=== PATIENT | male | born 1940 | race Caucasian/White ===

== ENCOUNTER → 2016-09-27 | Outpatient (CLI) | payer MEDICARE ==
[~2016-09-27] MED LIST: /AMLO25TA PO; /TAMS4CA PO; ALPH0.1S OU; FOLI1TAB86 PO; GLIM4TAB PO; LEVO500T PO; METF1000 PO; SIMV40TA2 PO; TYLE325T5 PO; VITA100T20 PO; VITA100T60 PO; VITMTA PO; ZEST20TA8 PO; vitamin d PO
[2016-09-27 13:14] LABS: ALBUMIN 3.2 GM/DL (3.2-5.2); BILIRUBIN,TOTAL 0.4 MG/DL (0.2-1.0); CALCIUM LEVEL 8.7 MG/DL (8.8-10.2); CREATININE FOR GFR 1.69 MG/DL (0.70-1.30); GLOMERULAR FILTRATION RATE 42.4 (>42); TOTAL PROTEIN 6.4 GM/DL (6.4-8.2)
--- NOTE | 2016-09-27 16:59 | REP ---
CHEST, TWO VIEWS: Two views of the chest are performed and compared to prior study of 04/17/2013. There is mild elevation of the right hemidiaphragm. There are stable mild fibroatelectatic changes in each lung base without evidence of acute infiltrate. The heart is not enlarged. There is mild calcification of the thoracic aorta. The mediastinal silhouette is unchanged. There is osteopenia. A mild chronic compression deformity of an upper thoracic vertebral body is unchanged. Sclerotic density in the proximal right humerus is unchanged since 2012 and is compatible with enchondroma or bone infarct. IMPRESSION: No acute infiltrate. Signed by Duncan Spicer MD 09/28/2016 05:10 P
--- NOTE | 2016-09-29 16:47 | ECGEPIP ---
Stationary ECG Study [facility] Test Date: 2016-09-27 Pat Name: TOY LAFLEUR Department: Room: - Gender: M Companion Caregiver: RF : 1940 Requested By: Toy Boone Order Number: [id number] Reading MD: Santi Lind Measurements Intervals [place] Rate: 101 P: ME: 0 QRS: -19 QRSD: 101 T: 58 QT: 323 QTc: 419 Interpretive Statements SINUS RHTYHM/SINUS TACHYCARDIA WITH PACS LOW PRECORDIAL VOLTAGE WITH SLOW R WAVE PROGRESSION PULMONARY DISEASE VS BODY HABITUS; RULE OUT PRIOR SEPTAL INJURY OTHER THAN HEART RATE NO CHANGE FROM 04/16/13 Electronically Signed On 09-29-2016 16:47:22 EST by Santi Lind
== END ==
LOC: M LAB 11:21
PROVIDERS: ATTEND Ophthalmology
DX: Z01.818 Encounter for other preprocedural examination (principal); H04.523 Eversion of bilateral lacrimal punctum

== ENCOUNTER 2016-09-29 21:03 | Emergency (ER) | payer MEDICARE ==
[~2016-09-29] VITALS: Ht 162.6 cm; Wt 56.7 kg
[2016-09-29] MEDS ORDERED: ACETAMINOPHEN 325 MG TAB As Ordered ONE (21:53)
[2016-09-29] MEDS ORDERED: METOCLOPRAMIDE INJ 10MG/2ML VIAL (J2765) As Ordered ONE (21:53)
[2016-09-29 22:30] LABS: BASO % 0.4 % (0.0-1.0); EOS # 0.1 K/mm3 (0.0-0.50); EOS % 0.6 % (0.0-3.0); LARGE UNSTAINED CELL # 0.2 K/mm3 (0.0-0.4); LARGE UNSTAINED CELL % 1.3 % (0.0-4.0); LYMPH # 1.3 K/mm3 (1.5-4.5); LYMPH % 11.4 % (24.0-44.0); MEAN CORPUSCULAR HEMOGLOBIN 30.6 pg (27.0-33.0); MEAN CORPUSCULAR HGB CONC 32.5 g/dl (32.0-36.5); MEAN CORPUSCULAR VOLUME 94.2 fl (80.0-96.0); MONO # 0.7 K/mm3 (0.0-0.8); MONO % 6.2 % (0.0-5.0); NEUTROPHILS # 9.2 K/mm3 (1.8-7.7); PLATELET COUNT, AUTOMATED 190 k/mm3 (150-450); RED CELL DISTRIBUTION WIDTH 12.5 % (11.5-14.5); WHITE BLOOD COUNT 11.5 K/mm3 (4.0-10.0)
[2016-09-29 22:48] LABS: CALCIUM LEVEL 8.4 MG/DL (8.8-10.2); CREATININE FOR GFR 1.52 MG/DL (0.70-1.30); POTASSIUM SERUM 5.1 MEQ/L (3.5-5.1); THYROXINE (T4) 6.9 UG/DL (4.5-12.0)
--- NOTE | 2016-09-29 23:07 | REP ---
Clinical: Cough. Technique: PA and lateral. Comparison: 09/27/2016, 04/17/2013. Findings: Mediastinum and cardiac silhouette are normal. Lung michael demonstrate chronic changes primarily involving the left base/lingula. No obvious acute consolidation effusion or pneumothorax is appreciated. However, subtle superimposed left basilar atelectasis cannot definitively be excluded. 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 Impression: Chronic stable-appearing changes. Cannot exclude subtle superimposed left basilar atelectasis. Signed by Sreekanth Perez MD 09/29/2016 10:59 P
[2016-09-29] MEDS ORDERED: cefTRIAXone SOD 1 GM VIAL (J0696) As Ordered ONE (23:32)
--- NOTE | 2016-09-30 00:48 | EDDOCDS ---
Physician Documentation [facility] Name: Toy Sharma Age: 76 yrs Sex: Male : 1940 Arrival Date: 09/29/2016 Time: 21:03 Bed 1 Private MD: Matthew Murphy Disposition: 09/29/16 23:55 Discharged to Home/Self Care. Impression: Urinary tract infection, site not specified, Dehydration. - Condition is Stable. - Prescriptions for Cipro 500 mg Oral Tablet - take 1 tablet by ORAL route every 12 hours; 10 tablet. - Medication Reconciliation, Local Pharmacy Hours form. - Follow up: Matthew Murphy PA; When: 1 - 2 days; Reason: Recheck today's complaints. - Problem is new. - Symptoms have improved. Historical: - Allergies: no known allergies; - Home Meds: 1. metformin 500 mg Oral tab 2 tabs 2 times per day (Last dose: 09/29/2016 08:00) 2. simvastatin 40 mg Oral tab 1 tab 1x/week (Last dose: Unknown) 3. Vitamin D2 oral oral once wkly (Last dose: Unknown) 4. tamsulosin 0.4 mg oral cp24 1 cap once daily (Last dose: 09/29/2016 08:00) 5. meloxicam 7.5 mg oral tab 1 tab once daily (Last dose: 09/29/2016 08:00) 6. folic acid 1 mg Oral tab 1 tab once daily (Last dose: 09/29/2016 08:00) 7. lisinopril 2.5 mg Oral tab 1 tab once daily (Last dose: 09/29/2016 08:00) - PMHx: Hypertension; Diabetes - NIDDM: controlled; BPH; - PSHx: possible testicular surgery; - Social history: Smoking status: Patient states was never smoker of tobacco. Patient uses alcohol but reports only rare drinking. Patient/guardian denies using street drugs, No barriers to communication noted, The patient speaks fluent [place], Speaks appropriately for age. - Family history: Not pertinent. - : The pt / caregiver states he / she is not on anticoagulants. Home medication list is obtained from the caregiver. - Exposure Risk Screening:: None identified. Vital Signs: 09/29 21:05 BP 137 / 73; Pulse 124; Resp 18 S; Temp 100.3(O); Pulse Ox 95% on R/A; Weight 56.7 kg / rn1 125 lbs (R); Height 5 ft. 4 in. (162.56 cm) (R); Pain 3/10; 21:22 BP 156 / 73 (auto/); jp6 21:23 Pulse 117 MON; Pulse Ox 95% ; jp6 22:23 Pulse 103 MON; Pulse Ox 97% ; jp6 23:22 BP 146 / 73 (auto/); jp6 23:22 Pulse 98 MON; Pulse Ox 95% ; jp6 23:30 BP 141 / 70 (auto/); jp6 23:30 Pulse 101 MON; Pulse Ox 94% ; jp6 09/30 00:00 BP 151 / 72 (auto/); jp6 00:00 Pulse 101 MON; Pulse Ox 95% ; jp6 00:30 Pulse 97 MON; Pulse Ox 94% ; jp6 00:30 Temp 100(TE); jp6 09/29 21:05 Body Mass Index 21.46 (56.70 kg, 162.56 cm) rn1 MDM: 09/29 21:18 Fingerstick Blood Sugar Ordered. EDMS 21:43 -Blood Culture (Adults Only), peripheral from different site, or from device/port/PICC cs11 etc. if present ordered. 21:44 CBC with Diff Ordered. EDMS 21:44 MED Profile Ordered. EDMS 21:44 Lactic Acid (Spicer tube on ice) Ordered. EDMS 21:44 Thyroid Profile Ordered. EDMS 21:44 Urinalysis Ordered. EDMS 21:44 Creatine Phosphokinase Ordered. EDMS 21:44 -Influenza A&B Rapid Antigen - Nose Ordered. EDMS 21:44 -Blood Culture Ordered. EDMS 21:44 Urine Culture Ordered. EDMS 21:46 IV Saline Lock ordered. cs11 21:46 Acetaminophen Tablet 650 mg PO once ordered. cs11 21:47 Chest, 2 View (pa\E\lat) Ordered. EDMS 21:48 -Blood Culture (Adults Only), peripheral from different site, or from device/port/PICC tmm1 etc. if present complete. 21:49 Metoclopramide 10 mg IV at 40 mg/hr once over 15 mins ordered. cs11 21:49 NS 0.9% 500 ml IV at bolus once ordered. cs11 21:50 BLOOD CULTURES Ordered. EDMS 22:14 Financial registration complete. zo 22:24 PENDING SALE TO [facility] Payment Agreement was scanned into [employer] and attached to record. zo 22:44 Fingerstick Blood Sugar Reviewed. cs11 22:44 CBC with Diff Reviewed. cs11 22:44 -Influenza A&B Rapid Antigen - Nose Reviewed. cs11 23:13 MED Profile Reviewed. cs11 23:13 Lactic Acid (Spicer tube on ice) Reviewed. cs11 23:13 Thyroid Profile Reviewed. cs11 23:13 Creatine Phosphokinase Reviewed. cs11 23:13 NS 0.9% 500 ml IV at bolus once ordered. cs11 23:21 Urinalysis Reviewed. cs11 23:23 cefTRIAXone 1 grams IVPB once over 30 mins; dilute in 50mL of NS or D5W ordered. cs11 23:25 BED REQUEST+ADM ordered. EDMS 23:52 Chest, 2 View (pa\E\lat) Reviewed. cs11 Point of Care Testing: Blood Glucose: 21:12 Blood Glucose: 219 mg/dL; jmb Ranges: Administered Medications: 22:16 Drug: NS 0.9% 500 ml [sodium chloride 0.9 % intravenous solution] Route: IV; Rate: jp6 bolus; Site: left forearm; 22:17 Drug: Acetaminophen 650 mg [acetaminophen 325 mg tablet (2 tabs)] Route: PO; jp6 22:17 Drug: Metoclopramide 10 mg [metoclopramide 5 mg/mL injection solution] Route: IV; Rate: jp6 40 mg/hr; Infused Over: 15 mins; Site: left forearm; 23:15 Drug: NS 0.9% 500 ml [sodium chloride 0.9 % intravenous solution] Route: IV; Rate: jp6 bolus; Site: left antecubital; 23:48 Drug: cefTRIAXone 1 grams [ceftriaxone 1 gram solution for injection] Route: IVPB; jp6 Infused Over: 30 mins; Site: left antecubital; Signatures: Dispatcher [employer] EDMS Bren Lord Craig, DO DO cs11 Paty Walton, RN RN ttb Liz Spain, MID LEVEL CLINICIAN MID LEVEL CLINICIAN tmm1 Leonora Matt,JOSSY RN jp6 The chart was reviewed and I authenticate all verbal orders and agree with the evaluation and treatment provided.Attachments: 22:24 PENDING SALE TO [facility] Payment Agreement zo MTDD
--- NOTE | 2016-09-30 00:48 | EDDOCDS ---
Nurse's Notes [facility] Name: Toy Sharma Age: 76 yrs Sex: Male : 1940 Arrival Date: 09/29/2016 Time: 21:03 Bed 1 Private MD: Matthew Murphy Diagnosis: Urinary tract infection, site not specified;Dehydration Presentation: 09/29 21:08 Presenting complaint: neighbor states pt cannot walk and is not his normal self today. ttb Chest was hurting 2 days ago while shopping but resolved.... COMANCHE but they state his mentation is his norm. Adult Sepsis Screening: The patient does not have new or worsening altered mentation. Patient's respiratory rate is less than 22. Systolic blood pressure is greater than 100. Patient has a qSOFA score of 0- Negative Sepsis Screen. Suicide/Homicide risk assessment- the patient denies having any suicidal and/or homicidal ideations and does not present with any other emotional, behavioral or mental health complaints. Status: Patient is not a special services supervisor or dependent. Transition of care: patient was not received from another setting of care. 21:08 Acuity: RAISA Level 3 ttb 21:08 Method Of Arrival: Walkin/Carried/Asstd ttb Triage Assessment: 21:14 General: Appears in no apparent distress, well nourished, well groomed, Behavior is ttb appropriate for age, cooperative, pleasant. Pain: Denies pain. Neurological: Level of Consciousness is awake, alert, family reports generalized weakness today. EENT: Denies nasal congestion, nasal discharge. Cardiovascular: Chest pain is denied Parent/caregiver reports patient has had chest pain 2 days ago : stated to be resolved now. Respiratory: Airway is patent Respiratory effort is even, unlabored, Denies cough, shortness of breath. GI: Reports vomiting, Denies diarrhea, nausea. Derm: Skin is normal. Injury Description: No known injury. 21:14 Injury Description: pt fell from standing friends said pt stated he fell last week when ttb his blood sugar was low -- unsure if he hit his head.... called for help after falling and able to get himself up with his cane. Historical: - Allergies: no known allergies; - Home Meds: 1. metformin 500 mg Oral tab 2 tabs 2 times per day (Last dose: 09/29/2016 08:00) 2. simvastatin 40 mg Oral tab 1 tab 1x/week (Last dose: Unknown) 3. Vitamin D2 oral oral once wkly (Last dose: Unknown) 4. tamsulosin 0.4 mg oral cp24 1 cap once daily (Last dose: 09/29/2016 08:00) 5. meloxicam 7.5 mg oral tab 1 tab once daily (Last dose: 09/29/2016 08:00) 6. folic acid 1 mg Oral tab 1 tab once daily (Last dose: 09/29/2016 08:00) 7. lisinopril 2.5 mg Oral tab 1 tab once daily (Last dose: 09/29/2016 08:00) - PMHx: Hypertension; Diabetes - NIDDM: controlled; BPH; - PSHx: possible testicular surgery; - Social history: Smoking status: Patient states was never smoker of tobacco. Patient uses alcohol but reports only rare drinking. Patient/guardian denies using street drugs, No barriers to communication noted, The patient speaks fluent Estonian, Speaks appropriately for age. - Family history: Not pertinent. - : The pt / caregiver states he / she is not on anticoagulants. Home medication list is obtained from the caregiver. - Exposure Risk Screening:: None identified. Screenin:23 Screening information is obtained from the patient. Fall risk: At risk due to age, gait jp6 disturbance, immobility. Assistance ADL's: requires no assistance with activities of daily living. Abuse/DV Screen: The patient / caregiver reports he/she is: not in a situation that causes fear, pain or injury. Nutritional screening: poor appetite. home support is adequate. 09/30 00:30 Advance Directives: Currently, there is no health care proxy. There is no active DNR jp6 order. There is no living will. Assessment: 09/29 21:30 General: Appears in no apparent distress, comfortable, slender, Behavior is appropriate jp6 for age, cooperative. Pain: Denies pain. Neurological: No deficits noted. Level of Consciousness is awake, alert, Oriented to person, place, time. EENT: No deficits noted. Cardiovascular: Capillary refill < 3 seconds Heart tones S1 S2 present Rhythm is sinus rhythm No ectopy. Respiratory: No deficits noted. Airway is patent Respiratory effort is even, unlabored, Respiratory pattern is regular, symmetrical, Breath sounds are clear bilaterally. GI: Abdomen is flat, non- distended Bowel sounds present X 4 quads. Reports nausea, vomiting. : No deficits noted. Derm: Skin is pink, warm & dry. Musculoskeletal: Reports weakness in right leg and left leg inability to stand. 22:30 Reassessment: Patient denies pain at this time. Patient states feeling better. Pain: jp6 Denies pain. Cardiovascular: Capillary refill < 3 seconds Rhythm is sinus rhythm No ectopy. Respiratory: Airway is patent Respiratory effort is even, unlabored, Breath sounds are clear bilaterally. 22:30 Reassessment: Patient appears in no apparent distress at this time. Patient states jp6 feeling better. Patient states symptoms have improved. 23:30 Pain: Denies pain. Neurological: Level of Consciousness is awake, alert, Oriented to jp6 person, place, time. EENT: No deficits noted. Cardiovascular: Rhythm is sinus rhythm No ectopy. Respiratory: Airway is patent Respiratory effort is even, unlabored, Respiratory pattern is regular, symmetrical. Derm: Skin is pink, warm & dry. 09/30 00:34 Reassessment: Patient states symptoms have improved. General: Appears in no apparent jp6 distress, comfortable. Vital Signs: 09/29 21:05 BP 137 / 73; Pulse 124; Resp 18 S; Temp 100.3(O); Pulse Ox 95% on R/A; Weight 56.7 kg rn1 (R); Height 5 ft. 4 in. (162.56 cm) (R); Pain 3/10; 21:22 BP 156 / 73 (auto/); jp6 21:23 Pulse 117 MON; Pulse Ox 95% ; jp6 22:23 Pulse 103 MON; Pulse Ox 97% ; jp6 23:22 BP 146 / 73 (auto/); jp6 23:22 Pulse 98 MON; Pulse Ox 95% ; jp6 23:30 BP 141 / 70 (auto/); jp6 23:30 Pulse 101 MON; Pulse Ox 94% ; jp6 09/30 00:00 BP 151 / 72 (auto/); jp6 00:00 Pulse 101 MON; Pulse Ox 95% ; jp6 00:30 Pulse 97 MON; Pulse Ox 94% ; jp6 00:30 Temp 100(TE); jp6 09/29 21:05 Body Mass Index 21.46 (56.70 kg, 162.56 cm) rn1 Vitals: 09/29 21:05 Log In Time: September 29, 2016 at 21:05. gr2 ED Course: 21:05 Patient visited by Svitlana Azevedo. gr2 21:05 Matthew Murphy PA is Private Physician. gr2 21:05 Patient moved to Waiting gr2 21:07 Patient visited by Svitlana Azevedo. gr2 21:07 Patient moved to Pre RCE gr2 21:10 Triage Initiated ttb 21:14 Patient moved to 1 jmb 21:15 Leonora Matt,RN is Primary Nurse. jp6 21:20 Ricky Barraza DO is Attending Physician. cs11 21:21 Patient visited by Ricky Barraza DO. cs11 22:10 Lactic Acid (Spicer tube on ice) Sent. ls3 22:10 Thyroid Profile Sent. ls3 22:11 Patient visited by Ally Barraza PCA. ls3 22:11 Creatine Phosphokinase Sent. ls3 22:11 MED Profile Sent. ls3 22:11 CBC with Diff Sent. ls3 22:11 -Blood Culture Sent. ls3 22:11 Labs drawn. (by ED staff). Sent per order to lab. ls3 22:17 -Influenza A&B Rapid Antigen - Nose Sent. jp6 22:23 The patient / caregiver is instructed regarding the plan of care and ED course. Cardiac jp6 monitor on. Pulse ox on. NIBP on. Warm blanket given. 22:23 Inserted saline lock: 20 gauge in left forearm and blood collected. No procedures done jp6 that require assistance. 22:24 [facility] [place] was scanned into gestigon and attached to record. zo 22:49 Patient visited by Emili Fung RN. sls1 22:49 Notified attending ED physician of Critical lab value. sls1 22:54 Urine Culture Sent. ls3 22:54 Urinalysis Sent. ls3 22:54 Urine collected. Clean catch specimen. Urine specimen sent to lab. ls3 23:08 Patient visited by Bruna Roberts, Noodle Catalyst Maker. jlm 23:08 BLOOD CULTURES Sent. jlm 23:23 Patient visited by Bruna Roberts, Noodle Catalyst Maker. jlm 23:41 Delmy Taylor butcher assistant. ys2 23:49 Chest, 2 View (pa\E\lat) Returned. EDMS 23:55 Matthew Murphy PA is Referral Physician. cs11 09/30 00:46 Discontinued lock bleeding controlled, pressure dressing applied, No redness/swelling jp6 at site. Administered Medications: 09/29 22:16 Drug: NS 0.9% 500 ml [sodium chloride 0.9 % intravenous solution] Route: IV; Rate: jp6 bolus; Site: left forearm; 22:17 Drug: Acetaminophen 650 mg [acetaminophen 325 mg tablet (2 tabs)] Route: PO; jp6 22:17 Drug: Metoclopramide 10 mg [metoclopramide 5 mg/mL injection solution] Route: IV; Rate: jp6 40 mg/hr; Infused Over: 15 mins; Site: left forearm; 23:15 Drug: NS 0.9% 500 ml [sodium chloride 0.9 % intravenous solution] Route: IV; Rate: jp6 bolus; Site: left antecubital; 23:48 Drug: cefTRIAXone 1 grams [ceftriaxone 1 gram solution for injection] Route: IVPB; jp6 Infused Over: 30 mins; Site: left antecubital; Point of Care Testing: Blood Glucose: 21:12 Blood Glucose: 219 mg/dL; [facility] Ranges: Order Results: Lab Order: Fingerstick Blood Sugar; SPEC'M 09/29/16 21:09 Test: BEDSIDE GLUCOSE; Value: 219; Range: 83-110; Abnormal: Above high normal; Units: MG/DL; Status: F Lab Order: -Influenza A&B Rapid Antigen - Nose; SPEC'M 09/29/16 22:11 Test: INFLUENZA A RAPID SCR by ICA; Value: INFLUENZA A RESULTS NEGATIVE; Status: F Test: INFLUENZA A RAPID SCR by ICA; Value: Comments:; Status: F Test: INFLUENZA B RAPID SCR by ICA; Value: INFLUENZA B RESULTS NEGATIVE; Status: F Test Note: ; The Influenza test is a direct rapid immunoassay for the qualitative detection of Influenza viral antigen. Cell culture (Viral Culture) testing should be considered to confirm NEGATIVE results and to assist in detecting other viruses that can provide similar clinical symptoms. Please contact the lab within 24 hours ([phone]) if confirmatory testing is desired. Lab Order: CBC with Diff; SPEC'M 09/29/16 22:06 Test: WHITE BLOOD COUNT; Value: 11.5; Range: 4.0-10.0; Abnormal: Above high normal; Units: K/mm3; Status: F Test: RED BLOOD COUNT; Value: 4.24; Range: 4.30-6.10; Abnormal: Below low normal; Units: M/mm3; Status: F Test: HEMOGLOBIN; Value: 13.0; Range: 14.0-18.0; Abnormal: Below low normal; Units: g/dl; Status: F Test: HEMATOCRIT; Value: 39.9; Range: 42.0-52.0; Abnormal: Below low normal; Units: %; Status: F Test: MEAN CORPUSCULAR VOLUME; Value: 94.2; Range: 80.0-96.0; Units: fl; Status: F Test: MEAN CORPUSCULAR HEMOGLOBIN; Value: 30.6; Range: 27.0-33.0; Units: pg; Status: F Test: MEAN CORPUSCULAR HGB CONC; Value: 32.5; Range: 32.0-36.5; Units: g/dl; Status: F Test: RED CELL DISTRIBUTION WIDTH; Value: 12.5; Range: 11.5-14.5; Units: %; Status: F Test: PLATELET COUNT, AUTOMATED; Value: 190; Range: 150-450; Units: k/mm3; Status: F Test: NEUTROPHILS %; Value: 80.0; Range: 36.0-66.0; Abnormal: Above high normal; Units: %; Status: F Test: LYMPH %; Value: 11.4; Range: 24.0-44.0; Abnormal: Below low normal; Units: %; Status: F Test: MONO %; Value: 6.2; Range: 0.0-5.0; Abnormal: Above high normal; Units: %; Status: F Test: EOS %; Value: 0.6; Range: 0.0-3.0; Units: %; Status: F Test: BASO %; Value: 0.4; Range: 0.0-1.0; Units: %; Status: F Test: LARGE UNSTAINED CELL %; Value: 1.3; Range: 0.0-4.0; Units: %; Status: F Test: NEUTROPHILS #; Value: 9.2; Range: 1.8-7.7; Abnormal: Above high normal; Units: K/mm3; Status: F Test: LYMPH #; Value: 1.3; Range: 1.5-4.5; Abnormal: Below low normal; Units: K/mm3; Status: F Test: MONO #; Value: 0.7; Range: 0.0-0.8; Units: K/mm3; Status: F Test: EOS #; Value: 0.1; Range: 0.0-0.50; Units: K/mm3; Status: F Test: BASO #; Value: 0.0; Range: 0.0-0.2; Units: K/mm3; Status: F Test: LARGE UNSTAINED CELL #; Value: 0.2; Range: 0.0-0.4; Units: K/mm3; Status: F Lab Order: MED Profile; SPEC'M 09/29/16 22:06 Test: GLUCOSE, FASTING; Value: 170; Range: 83-110; Abnormal: Above high normal; Units: MG/DL; Status: F Test: BLOOD UREA NITROGEN; Value: 13; Range: 7-18; Units: MG/DL; Status: F Test: CREATININE FOR GFR; Value: 1.52; Range: 0.70-1.30; Abnormal: Above high normal; Units: MG/DL; Status: F Test: GLOMERULAR FILTRATION RATE; Value: 48.0; Range: >42; Status: F Test: SODIUM LEVEL; Value: 143; Range: 136-145; Units: MEQ/L; Status: F Test: POTASSIUM SERUM; Value: 5.1; Range: 3.5-5.1; Units: MEQ/L; Status: F Test: CHLORIDE LEVEL; Value: 109; Range: 98-107; Abnormal: Above high normal; Units: MEQ/L; Status: F Test: CARBON DIOXIDE LEVEL; Value: 24; Range: 21-32; Units: MEQ/L; Status: F Test: ANION GAP; Value: 10; Range: 8-16; Units: MEQ/L; Status: F Test: CALCIUM LEVEL; Value: 8.4; Range: 8.8-10.2; Abnormal: Below low normal; Units: MG/DL; Status: F Test Note: ; Units are mL/min/1.73 m2 Chronic Kidney Disease Staging per NKF: Stage I & II GFR >=60 Normal to Mildly Decreased Stage III GFR 30-59 Moderately Decreased Stage IV GFR 15-29 Severely Decreased Stage V GFR <15 Very Little GFR Left ESRD GFR <15 on RN ENDOSCOPY Lab Order: Lactic Acid (Spicer tube on ice); SPEC'M 09/29/16 22:07 Test: LACTIC ACID LEVEL, LACTATE; Value: 3.4; Range: 0.4-2.0; Abnormal: Above upper panic limits; Units: MMOL/L; Status: F Lab Order: Thyroid Profile; SPEC'M 09/29/16 22:06 Test: T UPTAKE; Value: 33; Range: 33-40; Units: %; Status: F Test: THYROXINE (T4); Value: 6.9; Range: 4.5-12.0; Units: UG/DL; Status: F Test: FREE THYROXINE INDEX; Value: 2.3; Range: 1.4-3.8; Units: %; Status: F Test: THYROID STIMULATING HORMONE; Value: 3.830; Range: 0.358-3.740; Abnormal: Above high normal; Units: uIU/ML; Status: F Lab Order: Urinalysis; SPEC'M 09/29/16 22:52 Test: APPEARANCE, URINE; Value: CLOUDY; Range: CLEAR; Abnormal: Above high normal; Status: F Test: COLOR, URINE; Value: YELLOW; Range: YELLOW; Status: F Test: PH,URINE; Value: 5.0; Range: 5.0-9.0; Units: UNITS; Status: F Test: SPECIFIC GRAVITY URINE AUTO; Value: 1.023; Range: 1.002-1.035; Status: F Test: PROTEIN, URINE AUTO; Value: NEGATIVE; Range: NEGATIVE; Units: mg/dL; Status: F Test: GLUCOSE, URINE (UA) AUTO; Value: 3+; Range: NEGATIVE; Abnormal: Above high normal; Units: mg/dL; Status: F Test: KETONE, URINE AUTO; Value: NEGATIVE; Range: NEGATIVE; Units: mg/dL; Status: F Test: UROBILINOGEN, URINE AUTO; Value: 0.2; Range: 0.0-2.0; Units: mg/dL; Status: F Test: BILIRUBIN, URINE AUTO; Value: NEGATIVE; Range: NEGATIVE; Status: F Test: NITRITE, URINE AUTO; Value: POSITIVE; Range: NEGATIVE; Status: F Test: LEUKOCYTE ESTERASE, URINE AUTO; Value: 2+; Range: NEGATIVE; Abnormal: Above high normal; Status: F Test: BLOOD, URINE BLOOD; Value: 1+; Range: NEGATIVE; Abnormal: Above high normal; Status: F Test: WBC, URINE AUTO; Value: TNTC; Range: 0-3; Abnormal: Above high normal; Units: /HPF; Status: F Test: RBC, URINE AUTO; Value: 10; Range: 0-3; Abnormal: Above high normal; Units: /HPF; Status: F Test: BACTERIA, URINE AUTO; Value: 2+; Range: NEGATIVE; Abnormal: Above high normal; Status: F Test: SQUAMOUS EPITHELIAL CELL UR AU; Value: 1; Range: 0-6; Units: /HPF; Status: F Test: MUCUS, URINE; Value: SMALL; Range: NEGATIVE; Status: F Test: HYALINE CAST, URINE AUTO; Value: 0; Range: 0-1; Units: /LPF; Status: F Lab Order: Creatine Phosphokinase; SPEC'M 09/29/16 22:06 Test: CPK CREATINE PHOSPHOKINASE; Value: 78; Range: 39-308; Units: U/L; Status: F Radiology Order: Chest, 2 View (pa\E\lat) Test: Chest, 2 View (pa\E\lat) REASON FOR EXAMINATION: Cough; Clinical: Cough.; ; Technique: PA and lateral.; ; Comparison: 09/27/2016, 04/17/2013.; ; Findings:; Mediastinum and cardiac silhouette are normal. Lung michael demonstrate chronic; changes primarily involving the left base/lingula. No obvious acute; consolidation effusion or pneumothorax is appreciated. However, subtle; superimposed left basilar atelectasis cannot definitively be excluded. Skeletal; structures demonstrate age-related degenerative changes and evidence for prior; infarction involving the right shoulder.; ; Impression:; Chronic stable-appearing changes.; Cannot exclude subtle superimposed left basilar atelectasis.; ; ; Signed by; Sreekanth Perez MD 09/29/2016 10:59 P; Outcome: 23:55 Discharge ordered by Provider. cs11 09/30 00:30 Discharge Assessment: Patient awake, alert and oriented x 3. No cognitive and/or jp6 functional deficits noted. Patient verbalized understanding of disposition instructions. patient administered narcotics - no. The following High Risk Discharge criteria are identified: None. Condition: improved. Discharge instructions given to patient, friend, Instructed on discharge instructions, follow up and referral plans. medication usage, Demonstrated understanding of instructions, medications, Pt was receptive of discharge instructions/ teaching. Prescriptions given X 1. No special radiology studies were completed. Property sent home with patient. 00:46 Patient left the ED. jp6 Signatures: Dispatcher [employer] EDMS Bren Lord Shannon, RN RN sls1 Ricky Barraza DO DO cs11 Paty Walton, RN RN ttSvitlana Mckee gr2 Rayshawn Pagan,RN RN leonab Bruna Roberts, Noodle Catalyst Maker Unit jlEdouard Denson rn1 Ally Barraza, CHEMICAL SUPERVISOR CHEMICAL SUPERVISOR ls3 Delmy Taylor ys2 Leonora Matt,RN RN jp6 Corrections: (The following items were deleted from the chart) 09/29 21:26 21:05 BP 137 / 73; Pulse 124bpm; Resp 18bpm; Spontaneous; Pulse Ox 95% RA; Temp 100.3F rn1 Oral; 56.7 kg Reported; Height 5 ft. 9 in. Reported; BMI: 18.4; Pain 3/10; gr2 MTDD
--- NOTE | 2016-10-02 01:47 | EDDOCDS ---
Nurse's Notes [facility] Name: Toy Sharma Age: 76 yrs Sex: Male : 1940 Arrival Date: 09/29/2016 Time: 21:03 Bed 1 Private MD: Matthew Murphy Diagnosis: Urinary tract infection, site not specified;Dehydration Presentation: 09/29 21:08 Presenting complaint: neighbor states pt cannot walk and is not his normal self today. ttb Chest was hurting 2 days ago while shopping but resolved.... [place] but they state his mentation is his norm. Adult Sepsis Screening: The patient does not have new or worsening altered mentation. Patient's respiratory rate is less than 22. Systolic blood pressure is greater than 100. Patient has a qSOFA score of 0- Negative Sepsis Screen. Suicide/Homicide risk assessment- the patient denies having any suicidal and/or homicidal ideations and does not present with any other emotional, behavioral or mental health complaints. Status: Patient is not a medicaid service coordinator or dependent. Transition of care: patient was not received from another setting of care. 21:08 Acuity: RAISA Level 3 ttb 21:08 Method Of Arrival: Walkin/Carried/Asstd ttb Triage Assessment: 21:14 General: Appears in no apparent distress, well nourished, well groomed, Behavior is ttb appropriate for age, cooperative, pleasant. Pain: Denies pain. Neurological: Level of Consciousness is awake, alert, family reports generalized weakness today. EENT: Denies nasal congestion, nasal discharge. Cardiovascular: Chest pain is denied Parent/caregiver reports patient has had chest pain 2 days ago : stated to be resolved now. Respiratory: Airway is patent Respiratory effort is even, unlabored, Denies cough, shortness of breath. GI: Reports vomiting, Denies diarrhea, nausea. Derm: Skin is normal. Injury Description: No known injury. 21:14 Injury Description: pt fell from standing friends said pt stated he fell last week when ttb his blood sugar was low -- unsure if he hit his head.... called for help after falling and able to get himself up with his cane. Historical: - Allergies: no known allergies; - Home Meds: 1. metformin 500 mg Oral tab 2 tabs 2 times per day (Last dose: 09/29/2016 08:00) 2. simvastatin 40 mg Oral tab 1 tab 1x/week (Last dose: Unknown) 3. Vitamin D2 oral oral once wkly (Last dose: Unknown) 4. tamsulosin 0.4 mg oral cp24 1 cap once daily (Last dose: 09/29/2016 08:00) 5. meloxicam 7.5 mg oral tab 1 tab once daily (Last dose: 09/29/2016 08:00) 6. folic acid 1 mg Oral tab 1 tab once daily (Last dose: 09/29/2016 08:00) 7. lisinopril 2.5 mg Oral tab 1 tab once daily (Last dose: 09/29/2016 08:00) - PMHx: Hypertension; Diabetes - NIDDM: controlled; BPH; - PSHx: possible testicular surgery; - Social history: Smoking status: Patient states was never smoker of tobacco. Patient uses alcohol but reports only rare drinking. Patient/guardian denies using street drugs, No barriers to communication noted, The patient speaks fluent Chinese, Speaks appropriately for age. - Family history: Not pertinent. - : The pt / caregiver states he / she is not on anticoagulants. Home medication list is obtained from the caregiver. - Exposure Risk Screening:: None identified. Screenin:23 Screening information is obtained from the patient. Fall risk: At risk due to age, gait jp6 disturbance, immobility. Assistance ADL's: requires no assistance with activities of daily living. Abuse/DV Screen: The patient / caregiver reports he/she is: not in a situation that causes fear, pain or injury. Nutritional screening: poor appetite. home support is adequate. 09/30 00:30 Advance Directives: Currently, there is no health care proxy. There is no active DNR jp6 order. There is no living will. Assessment: 09/29 21:30 General: Appears in no apparent distress, comfortable, slender, Behavior is appropriate jp6 for age, cooperative. Pain: Denies pain. Neurological: No deficits noted. Level of Consciousness is awake, alert, Oriented to person, place, time. EENT: No deficits noted. Cardiovascular: Capillary refill < 3 seconds Heart tones S1 S2 present Rhythm is sinus rhythm No ectopy. Respiratory: No deficits noted. Airway is patent Respiratory effort is even, unlabored, Respiratory pattern is regular, symmetrical, Breath sounds are clear bilaterally. GI: Abdomen is flat, non- distended Bowel sounds present X 4 quads. Reports nausea, vomiting. : No deficits noted. Derm: Skin is pink, warm & dry. Musculoskeletal: Reports weakness in right leg and left leg inability to stand. 22:30 Reassessment: Patient denies pain at this time. Patient states feeling better. Pain: jp6 Denies pain. Cardiovascular: Capillary refill < 3 seconds Rhythm is sinus rhythm No ectopy. Respiratory: Airway is patent Respiratory effort is even, unlabored, Breath sounds are clear bilaterally. 22:30 Reassessment: Patient appears in no apparent distress at this time. Patient states jp6 feeling better. Patient states symptoms have improved. 23:30 Pain: Denies pain. Neurological: Level of Consciousness is awake, alert, Oriented to jp6 person, place, time. EENT: No deficits noted. Cardiovascular: Rhythm is sinus rhythm No ectopy. Respiratory: Airway is patent Respiratory effort is even, unlabored, Respiratory pattern is regular, symmetrical. Derm: Skin is pink, warm & dry. 09/30 00:34 Reassessment: Patient states symptoms have improved. General: Appears in no apparent jp6 distress, comfortable. Vital Signs: 09/29 21:05 BP 137 / 73; Pulse 124; Resp 18 S; Temp 100.3(O); Pulse Ox 95% on R/A; Weight 56.7 kg rn1 (R); Height 5 ft. 4 in. (162.56 cm) (R); Pain 3/10; 21:22 BP 156 / 73 (auto/); jp6 21:23 Pulse 117 MON; Pulse Ox 95% ; jp6 22:23 Pulse 103 MON; Pulse Ox 97% ; jp6 23:22 BP 146 / 73 (auto/); jp6 23:22 Pulse 98 MON; Pulse Ox 95% ; jp6 23:30 BP 141 / 70 (auto/); jp6 23:30 Pulse 101 MON; Pulse Ox 94% ; jp6 09/30 00:00 BP 151 / 72 (auto/); jp6 00:00 Pulse 101 MON; Pulse Ox 95% ; jp6 00:30 Pulse 97 MON; Pulse Ox 94% ; jp6 00:30 Temp 100(TE); jp6 09/29 21:05 Body Mass Index 21.46 (56.70 kg, 162.56 cm) rn1 Vitals: 09/29 21:05 Log In Time: September 29, 2016 at 21:05. gr2 ED Course: 21:05 Patient visited by Svitlana Azevedo. gr2 21:05 Matthew Murphy PA is Private Physician. gr2 21:05 Patient moved to Waiting gr2 21:07 Patient visited by Svitlana Azevedo. gr2 21:07 Patient moved to Pre RCE gr2 21:10 Triage Initiated ttb 21:14 Patient moved to 1 jmb 21:15 Leonora Matt,RN is Primary Nurse. jp6 21:20 Ricky Barraza DO is Attending Physician. cs11 21:21 Patient visited by Ricky Barraza DO. cs11 22:10 Lactic Acid (Spicer tube on ice) Sent. ls3 22:10 Thyroid Profile Sent. ls3 22:11 Patient visited by Ally Barraza PCA. ls3 22:11 Creatine Phosphokinase Sent. ls3 22:11 MED Profile Sent. ls3 22:11 CBC with Diff Sent. ls3 22:11 -Blood Culture Sent. ls3 22:11 Labs drawn. (by ED staff). Sent per order to lab. ls3 22:17 -Influenza A&B Rapid Antigen - Nose Sent. jp6 22:23 The patient / caregiver is instructed regarding the plan of care and ED course. Cardiac jp6 monitor on. Pulse ox on. NIBP on. Warm blanket given. 22:23 Inserted saline lock: 20 gauge in left forearm and blood collected. No procedures done jp6 that require assistance. 22:24 [place] [place] was scanned into [email or web address] and attached to record. zo 22:49 Patient visited by Emili Fung RN. sls1 22:49 Notified attending ED physician of Critical lab value. sls1 22:54 Urine Culture Sent. ls3 22:54 Urinalysis Sent. ls3 22:54 Urine collected. Clean catch specimen. Urine specimen sent to lab. ls3 23:08 Patient visited by Bruna Roberts, Screw Machine Adjuster Automatic. jlm 23:08 BLOOD CULTURES Sent. jlm 23:23 Patient visited by Bruna Roberts, Screw Machine Adjuster Automatic. jlm 23:41 Delmy aTylor youth liaison officer. ys2 23:49 Chest, 2 View (pa\E\lat) Returned. EDMS 23:55 Matthew Murphy PA is Referral Physician. cs11 09/30 00:46 Discontinued lock bleeding controlled, pressure dressing applied, No redness/swelling jp6 at site. 07:59 T-Sheet-- Draft Copy was scanned into [email or web address] and attached to record. gb Administered Medications: 09/29 22:16 Drug: NS 0.9% 500 ml [sodium chloride 0.9 % intravenous solution] Route: IV; Rate: jp6 bolus; Site: left forearm; 22:17 Drug: Acetaminophen 650 mg [acetaminophen 325 mg tablet (2 tabs)] Route: PO; jp6 22:17 Drug: Metoclopramide 10 mg [metoclopramide 5 mg/mL injection solution] Route: IV; Rate: jp6 40 mg/hr; Infused Over: 15 mins; Site: left forearm; 23:15 Drug: NS 0.9% 500 ml [sodium chloride 0.9 % intravenous solution] Route: IV; Rate: jp6 bolus; Site: left antecubital; 23:48 Drug: cefTRIAXone 1 grams [ceftriaxone 1 gram solution for injection] Route: IVPB; jp6 Infused Over: 30 mins; Site: left antecubital; Point of Care Testing: Blood Glucose: 21:12 Blood Glucose: 219 mg/dL; [facility] Ranges: Order Results: Lab Order: Fingerstick Blood Sugar; SPEC'M 09/29/16 21:09 Test: BEDSIDE GLUCOSE; Value: 219; Range: 83-110; Abnormal: Above high normal; Units: MG/DL; Status: F Lab Order: -Influenza A&B Rapid Antigen - Nose; SPEC'M 09/29/16 22:11 Test: INFLUENZA A RAPID SCR by ICA; Value: INFLUENZA A RESULTS NEGATIVE; Status: F Test: INFLUENZA A RAPID SCR by ICA; Value: Comments:; Status: F Test: INFLUENZA B RAPID SCR by ICA; Value: INFLUENZA B RESULTS NEGATIVE; Status: F Test Note: ; The Influenza test is a direct rapid immunoassay for the qualitative detection of Influenza viral antigen. Cell culture (Viral Culture) testing should be considered to confirm NEGATIVE results and to assist in detecting other viruses that can provide similar clinical symptoms. Please contact the lab within 24 hours ([phone]) if confirmatory testing is desired. Lab Order: CBC with Diff; SPEC'M 09/29/16 22:06 Test: WHITE BLOOD COUNT; Value: 11.5; Range: 4.0-10.0; Abnormal: Above high normal; Units: K/mm3; Status: F Test: RED BLOOD COUNT; Value: 4.24; Range: 4.30-6.10; Abnormal: Below low normal; Units: M/mm3; Status: F Test: HEMOGLOBIN; Value: 13.0; Range: 14.0-18.0; Abnormal: Below low normal; Units: g/dl; Status: F Test: HEMATOCRIT; Value: 39.9; Range: 42.0-52.0; Abnormal: Below low normal; Units: %; Status: F Test: MEAN CORPUSCULAR VOLUME; Value: 94.2; Range: 80.0-96.0; Units: fl; Status: F Test: MEAN CORPUSCULAR HEMOGLOBIN; Value: 30.6; Range: 27.0-33.0; Units: pg; Status: F Test: MEAN CORPUSCULAR HGB CONC; Value: 32.5; Range: 32.0-36.5; Units: g/dl; Status: F Test: RED CELL DISTRIBUTION WIDTH; Value: 12.5; Range: 11.5-14.5; Units: %; Status: F Test: PLATELET COUNT, AUTOMATED; Value: 190; Range: 150-450; Units: k/mm3; Status: F Test: NEUTROPHILS %; Value: 80.0; Range: 36.0-66.0; Abnormal: Above high normal; Units: %; Status: F Test: LYMPH %; Value: 11.4; Range: 24.0-44.0; Abnormal: Below low normal; Units: %; Status: F Test: MONO %; Value: 6.2; Range: 0.0-5.0; Abnormal: Above high normal; Units: %; Status: F Test: EOS %; Value: 0.6; Range: 0.0-3.0; Units: %; Status: F Test: BASO %; Value: 0.4; Range: 0.0-1.0; Units: %; Status: F Test: LARGE UNSTAINED CELL %; Value: 1.3; Range: 0.0-4.0; Units: %; Status: F Test: NEUTROPHILS #; Value: 9.2; Range: 1.8-7.7; Abnormal: Above high normal; Units: K/mm3; Status: F Test: LYMPH #; Value: 1.3; Range: 1.5-4.5; Abnormal: Below low normal; Units: K/mm3; Status: F Test: MONO #; Value: 0.7; Range: 0.0-0.8; Units: K/mm3; Status: F Test: EOS #; Value: 0.1; Range: 0.0-0.50; Units: K/mm3; Status: F Test: BASO #; Value: 0.0; Range: 0.0-0.2; Units: K/mm3; Status: F Test: LARGE UNSTAINED CELL #; Value: 0.2; Range: 0.0-0.4; Units: K/mm3; Status: F Lab Order: MED Profile; SPEC'M 09/29/16 22:06 Test: GLUCOSE, FASTING; Value: 170; Range: 83-110; Abnormal: Above high normal; Units: MG/DL; Status: F Test: BLOOD UREA NITROGEN; Value: 13; Range: 7-18; Units: MG/DL; Status: F Test: CREATININE FOR GFR; Value: 1.52; Range: 0.70-1.30; Abnormal: Above high normal; Units: MG/DL; Status: F Test: GLOMERULAR FILTRATION RATE; Value: 48.0; Range: >42; Status: F Test: SODIUM LEVEL; Value: 143; Range: 136-145; Units: MEQ/L; Status: F Test: POTASSIUM SERUM; Value: 5.1; Range: 3.5-5.1; Units: MEQ/L; Status: F Test: CHLORIDE LEVEL; Value: 109; Range: 98-107; Abnormal: Above high normal; Units: MEQ/L; Status: F Test: CARBON DIOXIDE LEVEL; Value: 24; Range: 21-32; Units: MEQ/L; Status: F Test: ANION GAP; Value: 10; Range: 8-16; Units: MEQ/L; Status: F Test: CALCIUM LEVEL; Value: 8.4; Range: 8.8-10.2; Abnormal: Below low normal; Units: MG/DL; Status: F Test Note: ; Units are mL/min/1.73 m2 Chronic Kidney Disease Staging per NKF: Stage I & II GFR >=60 Normal to Mildly Decreased Stage III GFR 30-59 Moderately Decreased Stage IV GFR 15-29 Severely Decreased Stage V GFR <15 Very Little GFR Left ESRD GFR <15 on ACADEMIC GUIDANCE SPECIALIST Lab Order: -Blood Culture; SPEC'M 09/29/16 22:06 Test: BLOOD CULTURE; Value: No growth after 24 hours . All specimens observed; Status: F Test: BLOOD CULTURE; Value: for 5 days. Results final at that time.; Status: F Test: BLOOD CULTURE; Value: No Growth after 48 hours. All Specimens observed; Status: F Test: BLOOD CULTURE; Value: for 7 days. Results final at that time.; Status: F Lab Order: Lactic Acid (Spicer tube on ice); SPECM 09/29/16 22:07 Test: LACTIC ACID LEVEL, LACTATE; Value: 3.4; Range: 0.4-2.0; Abnormal: Above upper panic limits; Units: MMOL/L; Status: F Lab Order: Thyroid Profile; SPECM 09/29/16 22:06 Test: T UPTAKE; Value: 33; Range: 33-40; Units: %; Status: F Test: THYROXINE (T4); Value: 6.9; Range: 4.5-12.0; Units: UG/DL; Status: F Test: FREE THYROXINE INDEX; Value: 2.3; Range: 1.4-3.8; Units: %; Status: F Test: THYROID STIMULATING HORMONE; Value: 3.830; Range: 0.358-3.740; Abnormal: Above high normal; Units: uIU/ML; Status: F Lab Order: Urinalysis; SPECM 09/29/16 22:52 Test: APPEARANCE, URINE; Value: CLOUDY; Range: CLEAR; Abnormal: Above high normal; Status: F Test: COLOR, URINE; Value: YELLOW; Range: YELLOW; Status: F Test: PH,URINE; Value: 5.0; Range: 5.0-9.0; Units: UNITS; Status: F Test: SPECIFIC GRAVITY URINE AUTO; Value: 1.023; Range: 1.002-1.035; Status: F Test: PROTEIN, URINE AUTO; Value: NEGATIVE; Range: NEGATIVE; Units: mg/dL; Status: F Test: GLUCOSE, URINE (UA) AUTO; Value: 3+; Range: NEGATIVE; Abnormal: Above high normal; Units: mg/dL; Status: F Test: KETONE, URINE AUTO; Value: NEGATIVE; Range: NEGATIVE; Units: mg/dL; Status: F Test: UROBILINOGEN, URINE AUTO; Value: 0.2; Range: 0.0-2.0; Units: mg/dL; Status: F Test: BILIRUBIN, URINE AUTO; Value: NEGATIVE; Range: NEGATIVE; Status: F Test: NITRITE, URINE AUTO; Value: POSITIVE; Range: NEGATIVE; Status: F Test: LEUKOCYTE ESTERASE, URINE AUTO; Value: 2+; Range: NEGATIVE; Abnormal: Above high normal; Status: F Test: BLOOD, URINE BLOOD; Value: 1+; Range: NEGATIVE; Abnormal: Above high normal; Status: F Test: WBC, URINE AUTO; Value: TNTC; Range: 0-3; Abnormal: Above high normal; Units: /HPF; Status: F Test: RBC, URINE AUTO; Value: 10; Range: 0-3; Abnormal: Above high normal; Units: /HPF; Status: F Test: BACTERIA, URINE AUTO; Value: 2+; Range: NEGATIVE; Abnormal: Above high normal; Status: F Test: SQUAMOUS EPITHELIAL CELL UR AU; Value: 1; Range: 0-6; Units: /HPF; Status: F Test: MUCUS, URINE; Value: SMALL; Range: NEGATIVE; Status: F Test: HYALINE CAST, URINE AUTO; Value: 0; Range: 0-1; Units: /LPF; Status: F Lab Order: Creatine Phosphokinase; SPEC'M 09/29/16 22:06 Test: CPK CREATINE PHOSPHOKINASE; Value: 78; Range: 39-308; Units: U/L; Status: F Lab Order: BLOOD CULTURES; SPEC'M 09/29/16 23:07 Test: BLOOD CULTURE; Value: No growth after 24 hours . All specimens observed; Status: F Test: BLOOD CULTURE; Value: for 5 days. Results final at that time.; Status: F Test: BLOOD CULTURE; Value: No Growth after 48 hours. All Specimens observed; Status: F Test: BLOOD CULTURE; Value: for 7 days. Results final at that time.; Status: F Radiology Order: Chest, 2 View (pa\E\lat) Test: Chest, 2 View (pa\E\lat) REASON FOR EXAMINATION: Cough; Clinical: Cough.; ; Technique: PA and lateral.; ; Comparison: 09/27/2016, 04/17/2013.; ; Findings:; Mediastinum and cardiac silhouette are normal. Lung michael demonstrate chronic; changes primarily involving the left base/lingula. No obvious acute; consolidation effusion or pneumothorax is appreciated. However, subtle; superimposed left basilar atelectasis cannot definitively be excluded. Skeletal; structures demonstrate age-related degenerative changes and evidence for prior; infarction involving the right shoulder.; ; Impression:; Chronic stable-appearing changes.; Cannot exclude subtle superimposed left basilar atelectasis.; ; ; Signed by; Sreekanth Perez MD 09/29/2016 10:59 P; Outcome: 23:55 Discharge ordered by Provider. cs11 09/30 00:30 Discharge Assessment: Patient awake, alert and oriented x 3. No cognitive and/or jp6 functional deficits noted. Patient verbalized understanding of disposition instructions. patient administered narcotics - no. The following High Risk Discharge criteria are identified: None. Condition: improved. Discharge instructions given to patient, friend, Instructed on discharge instructions, follow up and referral plans. medication usage, Demonstrated understanding of instructions, medications, Pt was receptive of discharge instructions/ teaching. Prescriptions given X 1. No special radiology studies were completed. Property sent home with patient. 00:46 Patient left the ED. jp6 Signatures: Dispatcher [employer] EDMS Elizabeth Dodge, Gordon Reg Bren Costa Shannon, RN RN sls1 Ricky Barraza DO DO cs11 Paty Walton RN RN Svitlana Ortiz gr2 Rayshawn Pagan,RN RN Bruna Bond, Screw Machine Adjuster Automatic Unit Edouard Baker rn1 Ally Barraza, INSTRUCTIONAL TECHNOLOGY TEACHER INSTRUCTIONAL TECHNOLOGY TEACHER ls3 Delmy Taylor ys2 Leonora Matt,RN RN jp6 Corrections: (The following items were deleted from the chart) 09/29 21:26 21:05 BP 137 / 73; Pulse 124bpm; Resp 18bpm; Spontaneous; Pulse Ox 95% RA; Temp 100.3F rn1 Oral; 56.7 kg Reported; Height 5 ft. 9 in. Reported; BMI: 18.4; Pain 3/10; gr2 Chart Complete MTDD
--- NOTE | 2016-10-02 01:47 | EDDOCDS ---
Physician Documentation [facility] Name: Toy Sharma Age: 76 yrs Sex: Male : 1940 Arrival Date: 09/29/2016 Time: 21:03 Bed 1 Private MD: Matthew Murphy Disposition: 09/29/16 23:55 Discharged to Home/Self Care. Impression: Urinary tract infection, site not specified, Dehydration. - Condition is Stable. - Prescriptions for Cipro 500 mg Oral Tablet - take 1 tablet by ORAL route every 12 hours; 10 tablet. - Medication Reconciliation, Local Pharmacy Hours form. - Follow up: Matthew Murphy PA; When: 1 - 2 days; Reason: Recheck today's complaints. - Problem is new. - Symptoms have improved. Historical: - Allergies: no known allergies; - Home Meds: 1. metformin 500 mg Oral tab 2 tabs 2 times per day (Last dose: 09/29/2016 08:00) 2. simvastatin 40 mg Oral tab 1 tab 1x/week (Last dose: Unknown) 3. Vitamin D2 oral oral once wkly (Last dose: Unknown) 4. tamsulosin 0.4 mg oral cp24 1 cap once daily (Last dose: 09/29/2016 08:00) 5. meloxicam 7.5 mg oral tab 1 tab once daily (Last dose: 09/29/2016 08:00) 6. folic acid 1 mg Oral tab 1 tab once daily (Last dose: 09/29/2016 08:00) 7. lisinopril 2.5 mg Oral tab 1 tab once daily (Last dose: 09/29/2016 08:00) - PMHx: Hypertension; Diabetes - NIDDM: controlled; BPH; - PSHx: possible testicular surgery; - Social history: Smoking status: Patient states was never smoker of tobacco. Patient uses alcohol but reports only rare drinking. Patient/guardian denies using street drugs, No barriers to communication noted, The patient speaks fluent Ukrainian, Speaks appropriately for age. - Family history: Not pertinent. - : The pt / caregiver states he / she is not on anticoagulants. Home medication list is obtained from the caregiver. - Exposure Risk Screening:: None identified. Vital Signs: 09/29 21:05 BP 137 / 73; Pulse 124; Resp 18 S; Temp 100.3(O); Pulse Ox 95% on R/A; Weight 56.7 kg / rn1 125 lbs (R); Height 5 ft. 4 in. (162.56 cm) (R); Pain 3/10; 21:22 BP 156 / 73 (auto/); jp6 21:23 Pulse 117 MON; Pulse Ox 95% ; jp6 22:23 Pulse 103 MON; Pulse Ox 97% ; jp6 23:22 BP 146 / 73 (auto/); jp6 23:22 Pulse 98 MON; Pulse Ox 95% ; jp6 23:30 BP 141 / 70 (auto/); jp6 23:30 Pulse 101 MON; Pulse Ox 94% ; jp6 09/30 00:00 BP 151 / 72 (auto/); jp6 00:00 Pulse 101 MON; Pulse Ox 95% ; jp6 00:30 Pulse 97 MON; Pulse Ox 94% ; jp6 00:30 Temp 100(TE); jp6 09/29 21:05 Body Mass Index 21.46 (56.70 kg, 162.56 cm) rn1 MDM: 09/29 21:18 Fingerstick Blood Sugar Ordered. EDMS 21:43 -Blood Culture (Adults Only), peripheral from different site, or from device/port/PICC cs11 etc. if present ordered. 21:44 CBC with Diff Ordered. EDMS 21:44 MED Profile Ordered. EDMS 21:44 Lactic Acid (Spicer tube on ice) Ordered. EDMS 21:44 Thyroid Profile Ordered. EDMS 21:44 Urinalysis Ordered. EDMS 21:44 Creatine Phosphokinase Ordered. EDMS 21:44 -Influenza A&B Rapid Antigen - Nose Ordered. EDMS 21:44 -Blood Culture Ordered. EDMS 21:44 Urine Culture Ordered. EDMS 21:46 IV Saline Lock ordered. cs11 21:46 Acetaminophen Tablet 650 mg PO once ordered. cs11 21:47 Chest, 2 View (pa\E\lat) Ordered. EDMS 21:48 -Blood Culture (Adults Only), peripheral from different site, or from device/port/PICC tmm1 etc. if present complete. 21:49 Metoclopramide 10 mg IV at 40 mg/hr once over 15 mins ordered. cs11 21:49 NS 0.9% 500 ml IV at bolus once ordered. cs11 21:50 BLOOD CULTURES Ordered. EDMS 22:14 Financial registration complete. zo 22:24 [facility] [place] Payment Agreement was scanned into [employer] and attached to record. zo 22:44 Fingerstick Blood Sugar Reviewed. cs11 22:44 CBC with Diff Reviewed. cs11 22:44 -Influenza A&B Rapid Antigen - Nose Reviewed. cs11 23:13 MED Profile Reviewed. cs11 23:13 Lactic Acid (Spicer tube on ice) Reviewed. cs11 23:13 Thyroid Profile Reviewed. cs11 23:13 Creatine Phosphokinase Reviewed. cs11 23:13 NS 0.9% 500 ml IV at bolus once ordered. cs11 23:21 Urinalysis Reviewed. cs11 23:23 cefTRIAXone 1 grams IVPB once over 30 mins; dilute in 50mL of NS or D5W ordered. cs11 23:25 BED REQUEST+ADM ordered. EDMS 23:52 Chest, 2 View (pa\E\lat) Reviewed. cs11 09/30 07:59 T-Sheet-- Draft Copy was scanned into Ling[employer] and attached to record. Point of Care Testing: Blood Glucose: 09/29 21:12 Blood Glucose: 219 mg/dL; jmb Ranges: Administered Medications: 22:16 Drug: NS 0.9% 500 ml [sodium chloride 0.9 % intravenous solution] Route: IV; Rate: jp6 bolus; Site: left forearm; 22:17 Drug: Acetaminophen 650 mg [acetaminophen 325 mg tablet (2 tabs)] Route: PO; jp6 22:17 Drug: Metoclopramide 10 mg [metoclopramide 5 mg/mL injection solution] Route: IV; Rate: jp6 40 mg/hr; Infused Over: 15 mins; Site: left forearm; 23:15 Drug: NS 0.9% 500 ml [sodium chloride 0.9 % intravenous solution] Route: IV; Rate: jp6 bolus; Site: left antecubital; 23:48 Drug: cefTRIAXone 1 grams [ceftriaxone 1 gram solution for injection] Route: IVPB; jp6 Infused Over: 30 mins; Site: left antecubital; Signatures: Dispatcher [employer] EDMS Elizabeth Dodge, Reg Reg gb Bren Lord Craig, DO cs11 Paty Walton RN RN ttb Judit, Liz, DISTANCE EDUCATION DIRECTOR DISTANCE EDUCATION DIRECTOR tmm1 Leonora MattRN RN jp6 The chart was reviewed and I authenticate all verbal orders and agree with the evaluation and treatment provided.Attachments: 22:24 [facility] Payment Agreement zo 09/30 07:59 T-Sheet-- Draft Copy gb Chart Complete MTDD
--- NOTE | 2016-10-02 01:47 | EDDOCDS ---
Physician Documentation [facility] Name: Toy Sharma Age: 76 yrs Sex: Male : 1940 Arrival Date: 09/29/2016 Time: 21:03 Bed 1 Private MD: Matthew Murphy Disposition: 09/29/16 23:55 Discharged to Home/Self Care. Impression: Urinary tract infection, site not specified, Dehydration. - Condition is Stable. - Prescriptions for Cipro 500 mg Oral Tablet - take 1 tablet by ORAL route every 12 hours; 10 tablet. - Medication Reconciliation, Local Pharmacy Hours form. - Follow up: Matthew Murphy PA; When: 1 - 2 days; Reason: Recheck today's complaints. - Problem is new. - Symptoms have improved. Historical: - Allergies: no known allergies; - Home Meds: 1. metformin 500 mg Oral tab 2 tabs 2 times per day (Last dose: 09/29/2016 08:00) 2. simvastatin 40 mg Oral tab 1 tab 1x/week (Last dose: Unknown) 3. Vitamin D2 oral oral once wkly (Last dose: Unknown) 4. tamsulosin 0.4 mg oral cp24 1 cap once daily (Last dose: 09/29/2016 08:00) 5. meloxicam 7.5 mg oral tab 1 tab once daily (Last dose: 09/29/2016 08:00) 6. folic acid 1 mg Oral tab 1 tab once daily (Last dose: 09/29/2016 08:00) 7. lisinopril 2.5 mg Oral tab 1 tab once daily (Last dose: 09/29/2016 08:00) - PMHx: Hypertension; Diabetes - NIDDM: controlled; BPH; - PSHx: possible testicular surgery; - Social history: Smoking status: Patient states was never smoker of tobacco. Patient uses alcohol but reports only rare drinking. Patient/guardian denies using street drugs, No barriers to communication noted, The patient speaks fluent Mauritian, Speaks appropriately for age. - Family history: Not pertinent. - : The pt / caregiver states he / she is not on anticoagulants. Home medication list is obtained from the caregiver. - Exposure Risk Screening:: None identified. Vital Signs: 09/29 21:05 BP 137 / 73; Pulse 124; Resp 18 S; Temp 100.3(O); Pulse Ox 95% on R/A; Weight 56.7 kg / rn1 125 lbs (R); Height 5 ft. 4 in. (162.56 cm) (R); Pain 3/10; 21:22 BP 156 / 73 (auto/); jp6 21:23 Pulse 117 MON; Pulse Ox 95% ; jp6 22:23 Pulse 103 MON; Pulse Ox 97% ; jp6 23:22 BP 146 / 73 (auto/); jp6 23:22 Pulse 98 MON; Pulse Ox 95% ; jp6 23:30 BP 141 / 70 (auto/); jp6 23:30 Pulse 101 MON; Pulse Ox 94% ; jp6 09/30 00:00 BP 151 / 72 (auto/); jp6 00:00 Pulse 101 MON; Pulse Ox 95% ; jp6 00:30 Pulse 97 MON; Pulse Ox 94% ; jp6 00:30 Temp 100(TE); jp6 09/29 21:05 Body Mass Index 21.46 (56.70 kg, 162.56 cm) rn1 MDM: 09/29 21:18 Fingerstick Blood Sugar Ordered. EDMS 21:43 -Blood Culture (Adults Only), peripheral from different site, or from device/port/PICC cs11 etc. if present ordered. 21:44 CBC with Diff Ordered. EDMS 21:44 MED Profile Ordered. EDMS 21:44 Lactic Acid (Spicer tube on ice) Ordered. EDMS 21:44 Thyroid Profile Ordered. EDMS 21:44 Urinalysis Ordered. EDMS 21:44 Creatine Phosphokinase Ordered. EDMS 21:44 -Influenza A&B Rapid Antigen - Nose Ordered. EDMS 21:44 -Blood Culture Ordered. EDMS 21:44 Urine Culture Ordered. EDMS 21:46 IV Saline Lock ordered. cs11 21:46 Acetaminophen Tablet 650 mg PO once ordered. cs11 21:47 Chest, 2 View (pa\E\lat) Ordered. EDMS 21:48 -Blood Culture (Adults Only), peripheral from different site, or from device/port/PICC tmm1 etc. if present complete. 21:49 Metoclopramide 10 mg IV at 40 mg/hr once over 15 mins ordered. cs11 21:49 NS 0.9% 500 ml IV at bolus once ordered. cs11 21:50 BLOOD CULTURES Ordered. EDMS 22:14 Financial registration complete. zo 22:24 [facility] [place] was [place] into [employer] and attached to record. zo 22:44 Fingerstick Blood Sugar Reviewed. cs11 22:44 CBC with Diff Reviewed. cs11 22:44 -Influenza A&B Rapid Antigen - Nose Reviewed. cs11 23:13 MED Profile Reviewed. cs11 23:13 Lactic Acid (Spicer tube on ice) Reviewed. cs11 23:13 Thyroid Profile Reviewed. cs11 23:13 Creatine Phosphokinase Reviewed. cs11 23:13 NS 0.9% 500 ml IV at bolus once ordered. cs11 23:21 Urinalysis Reviewed. cs11 23:23 cefTRIAXone 1 grams IVPB once over 30 mins; dilute in 50mL of NS or D5W ordered. cs11 23:25 BED REQUEST+ADM ordered. EDMS 23:52 Chest, 2 View (pa\E\lat) Reviewed. cs11 09/30 07:59 T-Sheet-- Draft Copy was scanned into [employer] and attached to record. Point of Care Testing: Blood Glucose: 09/29 21:12 Blood Glucose: 219 mg/dL; jmb Ranges: Administered Medications: 22:16 Drug: NS 0.9% 500 ml [sodium chloride 0.9 % intravenous solution] Route: IV; Rate: jp6 bolus; Site: left forearm; 22:17 Drug: Acetaminophen 650 mg [acetaminophen 325 mg tablet (2 tabs)] Route: PO; jp6 22:17 Drug: Metoclopramide 10 mg [metoclopramide 5 mg/mL injection solution] Route: IV; Rate: jp6 40 mg/hr; Infused Over: 15 mins; Site: left forearm; 23:15 Drug: NS 0.9% 500 ml [sodium chloride 0.9 % intravenous solution] Route: IV; Rate: jp6 bolus; Site: left antecubital; 23:48 Drug: cefTRIAXone 1 grams [ceftriaxone 1 gram solution for injection] Route: IVPB; jp6 Infused Over: 30 mins; Site: left antecubital; Signatures: Dispatcher [employer] EDMS Elizabeth Dodge, Reg Reg gb Bren Lord Craig, DO cs11 Paty Walton RN RN ttb Judit, Liz, CRUTCHING CONTRACTOR CRUTCHING CONTRACTOR tmm1 Leonora MattRN RN jp6 The chart was reviewed and I authenticate all verbal orders and agree with the evaluation and treatment provided.Attachments: 22:24 [facility] Payment Agreement zo 09/30 07:59 T-Sheet-- Draft Copy gb Chart Complete MTDD
--- NOTE | 2016-10-02 08:08 | EDDOCDS ---
Physician Documentation [facility] Name: Toy Sharma Age: 76 yrs Sex: Male : 1940 Arrival Date: 09/29/2016 Time: 21:03 Bed 1 Private MD: Matthew Murphy Disposition: 09/29/16 23:55 Discharged to Home/Self Care. Impression: Urinary tract infection, site not specified, Dehydration. - Condition is Stable. - Prescriptions for Cipro 500 mg Oral Tablet - take 1 tablet by ORAL route every 12 hours; 10 tablet. - Medication Reconciliation, Local Pharmacy Hours form. - Follow up: Matthew Murphy PA; When: 1 - 2 days; Reason: Recheck today's complaints. - Problem is new. - Symptoms have improved. Historical: - Allergies: no known allergies; - Home Meds: 1. metformin 500 mg Oral tab 2 tabs 2 times per day (Last dose: 09/29/2016 08:00) 2. simvastatin 40 mg Oral tab 1 tab 1x/week (Last dose: Unknown) 3. Vitamin D2 oral oral once wkly (Last dose: Unknown) 4. tamsulosin 0.4 mg oral cp24 1 cap once daily (Last dose: 09/29/2016 08:00) 5. meloxicam 7.5 mg oral tab 1 tab once daily (Last dose: 09/29/2016 08:00) 6. folic acid 1 mg Oral tab 1 tab once daily (Last dose: 09/29/2016 08:00) 7. lisinopril 2.5 mg Oral tab 1 tab once daily (Last dose: 09/29/2016 08:00) - PMHx: Hypertension; Diabetes - NIDDM: controlled; BPH; - PSHx: possible testicular surgery; - Social history: Smoking status: Patient states was never smoker of tobacco. Patient uses alcohol but reports only rare drinking. Patient/guardian denies using street drugs, No barriers to communication noted, The patient speaks fluent Zimbabwean, Speaks appropriately for age. - Family history: Not pertinent. - : The pt / caregiver states he / she is not on anticoagulants. Home medication list is obtained from the caregiver. - Exposure Risk Screening:: None identified. Vital Signs: 09/29 21:05 BP 137 / 73; Pulse 124; Resp 18 S; Temp 100.3(O); Pulse Ox 95% on R/A; Weight 56.7 kg / rn1 125 lbs (R); Height 5 ft. 4 in. (162.56 cm) (R); Pain 3/10; 21:22 BP 156 / 73 (auto/); jp6 21:23 Pulse 117 MON; Pulse Ox 95% ; jp6 22:23 Pulse 103 MON; Pulse Ox 97% ; jp6 23:22 BP 146 / 73 (auto/); jp6 23:22 Pulse 98 MON; Pulse Ox 95% ; jp6 23:30 BP 141 / 70 (auto/); jp6 23:30 Pulse 101 MON; Pulse Ox 94% ; jp6 09/30 00:00 BP 151 / 72 (auto/); jp6 00:00 Pulse 101 MON; Pulse Ox 95% ; jp6 00:30 Pulse 97 MON; Pulse Ox 94% ; jp6 00:30 Temp 100(TE); jp6 09/29 21:05 Body Mass Index 21.46 (56.70 kg, 162.56 cm) rn1 MDM: 09/29 21:18 Fingerstick Blood Sugar Ordered. EDMS 21:43 -Blood Culture (Adults Only), peripheral from different site, or from device/port/PICC cs11 etc. if present ordered. 21:44 CBC with Diff Ordered. EDMS 21:44 MED Profile Ordered. EDMS 21:44 Lactic Acid (Spicer tube on ice) Ordered. EDMS 21:44 Thyroid Profile Ordered. EDMS 21:44 Urinalysis Ordered. EDMS 21:44 Creatine Phosphokinase Ordered. EDMS 21:44 -Influenza A&B Rapid Antigen - Nose Ordered. EDMS 21:44 -Blood Culture Ordered. EDMS 21:44 Urine Culture Ordered. EDMS 21:46 IV Saline Lock ordered. cs11 21:46 Acetaminophen Tablet 650 mg PO once ordered. cs11 21:47 Chest, 2 View (pa\E\lat) Ordered. EDMS 21:48 -Blood Culture (Adults Only), peripheral from different site, or from device/port/PICC tmm1 etc. if present complete. 21:49 Metoclopramide 10 mg IV at 40 mg/hr once over 15 mins ordered. cs11 21:49 NS 0.9% 500 ml IV at bolus once ordered. cs11 21:50 BLOOD CULTURES Ordered. EDMS 22:14 Financial registration complete. zo 22:24 [facility] [place] Agreement was scanned into [employer] and attached to record. zo 22:44 Fingerstick Blood Sugar Reviewed. cs11 22:44 CBC with Diff Reviewed. cs11 22:44 -Influenza A&B Rapid Antigen - Nose Reviewed. cs11 23:13 MED Profile Reviewed. cs11 23:13 Lactic Acid (Spicer tube on ice) Reviewed. cs11 23:13 Thyroid Profile Reviewed. cs11 23:13 Creatine Phosphokinase Reviewed. cs11 23:13 NS 0.9% 500 ml IV at bolus once ordered. cs11 23:21 Urinalysis Reviewed. cs11 23:23 cefTRIAXone 1 grams IVPB once over 30 mins; dilute in 50mL of NS or D5W ordered. cs11 23:25 BED REQUEST+ADM ordered. EDMS 23:52 Chest, 2 View (pa\E\lat) Reviewed. cs11 09/30 07:59 T-Sheet-- Draft Copy was scanned into [employer] and attached to record. Point of Care Testing: Blood Glucose: 09/29 21:12 Blood Glucose: 219 mg/dL; jmb Ranges: Administered Medications: 22:16 Drug: NS 0.9% 500 ml [sodium chloride 0.9 % intravenous solution] Route: IV; Rate: jp6 bolus; Site: left forearm; 22:17 Drug: Acetaminophen 650 mg [acetaminophen 325 mg tablet (2 tabs)] Route: PO; jp6 22:17 Drug: Metoclopramide 10 mg [metoclopramide 5 mg/mL injection solution] Route: IV; Rate: jp6 40 mg/hr; Infused Over: 15 mins; Site: left forearm; 23:15 Drug: NS 0.9% 500 ml [sodium chloride 0.9 % intravenous solution] Route: IV; Rate: jp6 bolus; Site: left antecubital; 23:48 Drug: cefTRIAXone 1 grams [ceftriaxone 1 gram solution for injection] Route: IVPB; jp6 Infused Over: 30 mins; Site: left antecubital; Signatures: Dispatcher [employer] EDMS Elizabeth Dodge, Reg Reg gb Bren Lord Craig, DO cs11 Paty Walton RN RN ttb Judit, Liz, SEAT BUILDER SEAT BUILDER tmm1 Leonora MattRN RN jp6 The chart was reviewed and I authenticate all verbal orders and agree with the evaluation and treatment provided.Attachments: 22:24 COUNTS INCLUDE 234 BEDS AT THE [facility] Payment Agreement zo 09/30 07:59 T-Sheet-- Draft Copy gb MTDD
--- NOTE | 2016-10-02 08:08 | EDDOCDS ---
Physician Documentation [facility] Name: Toy Sharma Age: 76 yrs Sex: Male : 1940 Arrival Date: 09/29/2016 Time: 21:03 Bed 1 Private MD: Matthew Murphy Disposition: 09/29/16 23:55 Discharged to Home/Self Care. Impression: Urinary tract infection, site not specified, Dehydration. - Condition is Stable. - Prescriptions for Cipro 500 mg Oral Tablet - take 1 tablet by ORAL route every 12 hours; 10 tablet. - Medication Reconciliation, Local Pharmacy Hours form. - Follow up: Matthew Murphy PA; When: 1 - 2 days; Reason: Recheck today's complaints. - Problem is new. - Symptoms have improved. Historical: - Allergies: no known allergies; - Home Meds: 1. metformin 500 mg Oral tab 2 tabs 2 times per day (Last dose: 09/29/2016 08:00) 2. simvastatin 40 mg Oral tab 1 tab 1x/week (Last dose: Unknown) 3. Vitamin D2 oral oral once wkly (Last dose: Unknown) 4. tamsulosin 0.4 mg oral cp24 1 cap once daily (Last dose: 09/29/2016 08:00) 5. meloxicam 7.5 mg oral tab 1 tab once daily (Last dose: 09/29/2016 08:00) 6. folic acid 1 mg Oral tab 1 tab once daily (Last dose: 09/29/2016 08:00) 7. lisinopril 2.5 mg Oral tab 1 tab once daily (Last dose: 09/29/2016 08:00) - PMHx: Hypertension; Diabetes - NIDDM: controlled; BPH; - PSHx: possible testicular surgery; - Social history: Smoking status: Patient states was never smoker of tobacco. Patient uses alcohol but reports only rare drinking. Patient/guardian denies using street drugs, No barriers to communication noted, The patient speaks fluent Greek, Speaks appropriately for age. - Family history: Not pertinent. - : The pt / caregiver states he / she is not on anticoagulants. Home medication list is obtained from the caregiver. - Exposure Risk Screening:: None identified. Vital Signs: 09/29 21:05 BP 137 / 73; Pulse 124; Resp 18 S; Temp 100.3(O); Pulse Ox 95% on R/A; Weight 56.7 kg / rn1 125 lbs (R); Height 5 ft. 4 in. (162.56 cm) (R); Pain 3/10; 21:22 BP 156 / 73 (auto/); jp6 21:23 Pulse 117 MON; Pulse Ox 95% ; jp6 22:23 Pulse 103 MON; Pulse Ox 97% ; jp6 23:22 BP 146 / 73 (auto/); jp6 23:22 Pulse 98 MON; Pulse Ox 95% ; jp6 23:30 BP 141 / 70 (auto/); jp6 23:30 Pulse 101 MON; Pulse Ox 94% ; jp6 09/30 00:00 BP 151 / 72 (auto/); jp6 00:00 Pulse 101 MON; Pulse Ox 95% ; jp6 00:30 Pulse 97 MON; Pulse Ox 94% ; jp6 00:30 Temp 100(TE); jp6 09/29 21:05 Body Mass Index 21.46 (56.70 kg, 162.56 cm) rn1 MDM: 09/29 21:18 Fingerstick Blood Sugar Ordered. EDMS 21:43 -Blood Culture (Adults Only), peripheral from different site, or from device/port/PICC cs11 etc. if present ordered. 21:44 CBC with Diff Ordered. EDMS 21:44 MED Profile Ordered. EDMS 21:44 Lactic Acid (Spicer tube on ice) Ordered. EDMS 21:44 Thyroid Profile Ordered. EDMS 21:44 Urinalysis Ordered. EDMS 21:44 Creatine Phosphokinase Ordered. EDMS 21:44 -Influenza A&B Rapid Antigen - Nose Ordered. EDMS 21:44 -Blood Culture Ordered. EDMS 21:44 Urine Culture Ordered. EDMS 21:46 IV Saline Lock ordered. cs11 21:46 Acetaminophen Tablet 650 mg PO once ordered. cs11 21:47 Chest, 2 View (pa\E\lat) Ordered. EDMS 21:48 -Blood Culture (Adults Only), peripheral from different site, or from device/port/PICC tmm1 etc. if present complete. 21:49 Metoclopramide 10 mg IV at 40 mg/hr once over 15 mins ordered. cs11 21:49 NS 0.9% 500 ml IV at bolus once ordered. cs11 21:50 BLOOD CULTURES Ordered. EDMS 22:14 Financial registration complete. zo 22:24 [facility] [place] Payment Agreement was scanned into [employer] and attached to record. zo 22:44 Fingerstick Blood Sugar Reviewed. cs11 22:44 CBC with Diff Reviewed. cs11 22:44 -Influenza A&B Rapid Antigen - Nose Reviewed. cs11 23:13 MED Profile Reviewed. cs11 23:13 Lactic Acid (Spicer tube on ice) Reviewed. cs11 23:13 Thyroid Profile Reviewed. cs11 23:13 Creatine Phosphokinase Reviewed. cs11 23:13 NS 0.9% 500 ml IV at bolus once ordered. cs11 23:21 Urinalysis Reviewed. cs11 23:23 cefTRIAXone 1 grams IVPB once over 30 mins; dilute in 50mL of NS or D5W ordered. cs11 23:25 BED REQUEST+ADM ordered. EDMS 23:52 Chest, 2 View (pa\E\lat) Reviewed. cs11 09/30 07:59 T-Sheet-- Draft Copy was scanned into [employer] and attached to record. Point of Care Testing: Blood Glucose: 09/29 21:12 Blood Glucose: 219 mg/dL; jmb Ranges: Administered Medications: 22:16 Drug: NS 0.9% 500 ml [sodium chloride 0.9 % intravenous solution] Route: IV; Rate: jp6 bolus; Site: left forearm; 22:17 Drug: Acetaminophen 650 mg [acetaminophen 325 mg tablet (2 tabs)] Route: PO; jp6 22:17 Drug: Metoclopramide 10 mg [metoclopramide 5 mg/mL injection solution] Route: IV; Rate: jp6 40 mg/hr; Infused Over: 15 mins; Site: left forearm; 23:15 Drug: NS 0.9% 500 ml [sodium chloride 0.9 % intravenous solution] Route: IV; Rate: jp6 bolus; Site: left antecubital; 23:48 Drug: cefTRIAXone 1 grams [ceftriaxone 1 gram solution for injection] Route: IVPB; jp6 Infused Over: 30 mins; Site: left antecubital; Signatures: Dispatcher [employer] EDMS Elizabeth Dodge, Reg Reg gb Bren Lord Craig, DO cs11 Paty Walton RN RN ttb Judit, Liz, RECORDS COORDINATOR RECORDS COORDINATOR tmm1 Leonora MattRN RN jp6 The chart was reviewed and I authenticate all verbal orders and agree with the evaluation and treatment provided.Attachments: 22:24 [facility] Payment Agreement zo 09/30 07:59 T-Sheet-- Draft Copy gb MTDD
--- NOTE | 2016-10-02 08:08 | EDDOCDS ---
Nurse's Notes [facility] Name: Toy Sharma Age: 76 yrs Sex: Male : 1940 Arrival Date: 09/29/2016 Time: 21:03 Bed 1 Private MD: Matthew Murphy Diagnosis: Urinary tract infection, site not specified;Dehydration Presentation: 09/29 21:08 Presenting complaint: neighbor states pt cannot walk and is not his normal self today. ttb Chest was hurting 2 days ago while shopping but resolved.... [place] but they state his mentation is his norm. Adult Sepsis Screening: The patient does not have new or worsening altered mentation. Patient's respiratory rate is less than 22. Systolic blood pressure is greater than 100. Patient has a qSOFA score of 0- Negative Sepsis Screen. Suicide/Homicide risk assessment- the patient denies having any suicidal and/or homicidal ideations and does not present with any other emotional, behavioral or mental health complaints. Status: Patient is not a ag service manager or dependent. Transition of care: patient was not received from another setting of care. 21:08 Acuity: RAISA Level 3 ttb 21:08 Method Of Arrival: Walkin/Carried/Asstd ttb Triage Assessment: 21:14 General: Appears in no apparent distress, well nourished, well groomed, Behavior is ttb appropriate for age, cooperative, pleasant. Pain: Denies pain. Neurological: Level of Consciousness is awake, alert, family reports generalized weakness today. EENT: Denies nasal congestion, nasal discharge. Cardiovascular: Chest pain is denied Parent/caregiver reports patient has had chest pain 2 days ago : stated to be resolved now. Respiratory: Airway is patent Respiratory effort is even, unlabored, Denies cough, shortness of breath. GI: Reports vomiting, Denies diarrhea, nausea. Derm: Skin is normal. Injury Description: No known injury. 21:14 Injury Description: pt fell from standing friends said pt stated he fell last week when ttb his blood sugar was low -- unsure if he hit his head.... called for help after falling and able to get himself up with his cane. Historical: - Allergies: no known allergies; - Home Meds: 1. metformin 500 mg Oral tab 2 tabs 2 times per day (Last dose: 09/29/2016 08:00) 2. simvastatin 40 mg Oral tab 1 tab 1x/week (Last dose: Unknown) 3. Vitamin D2 oral oral once wkly (Last dose: Unknown) 4. tamsulosin 0.4 mg oral cp24 1 cap once daily (Last dose: 09/29/2016 08:00) 5. meloxicam 7.5 mg oral tab 1 tab once daily (Last dose: 09/29/2016 08:00) 6. folic acid 1 mg Oral tab 1 tab once daily (Last dose: 09/29/2016 08:00) 7. lisinopril 2.5 mg Oral tab 1 tab once daily (Last dose: 09/29/2016 08:00) - PMHx: Hypertension; Diabetes - NIDDM: controlled; BPH; - PSHx: possible testicular surgery; - Social history: Smoking status: Patient states was never smoker of tobacco. Patient uses alcohol but reports only rare drinking. Patient/guardian denies using street drugs, No barriers to communication noted, The patient speaks fluent Korean, Speaks appropriately for age. - Family history: Not pertinent. - : The pt / caregiver states he / she is not on anticoagulants. Home medication list is obtained from the caregiver. - Exposure Risk Screening:: None identified. Screenin:23 Screening information is obtained from the patient. Fall risk: At risk due to age, gait jp6 disturbance, immobility. Assistance ADL's: requires no assistance with activities of daily living. Abuse/DV Screen: The patient / caregiver reports he/she is: not in a situation that causes fear, pain or injury. Nutritional screening: poor appetite. home support is adequate. 09/30 00:30 Advance Directives: Currently, there is no health care proxy. There is no active DNR jp6 order. There is no living will. Assessment: 09/29 21:30 General: Appears in no apparent distress, comfortable, slender, Behavior is appropriate jp6 for age, cooperative. Pain: Denies pain. Neurological: No deficits noted. Level of Consciousness is awake, alert, Oriented to person, place, time. EENT: No deficits noted. Cardiovascular: Capillary refill < 3 seconds Heart tones S1 S2 present Rhythm is sinus rhythm No ectopy. Respiratory: No deficits noted. Airway is patent Respiratory effort is even, unlabored, Respiratory pattern is regular, symmetrical, Breath sounds are clear bilaterally. GI: Abdomen is flat, non- distended Bowel sounds present X 4 quads. Reports nausea, vomiting. : No deficits noted. Derm: Skin is pink, warm & dry. Musculoskeletal: Reports weakness in right leg and left leg inability to stand. 22:30 Reassessment: Patient denies pain at this time. Patient states feeling better. Pain: jp6 Denies pain. Cardiovascular: Capillary refill < 3 seconds Rhythm is sinus rhythm No ectopy. Respiratory: Airway is patent Respiratory effort is even, unlabored, Breath sounds are clear bilaterally. 22:30 Reassessment: Patient appears in no apparent distress at this time. Patient states jp6 feeling better. Patient states symptoms have improved. 23:30 Pain: Denies pain. Neurological: Level of Consciousness is awake, alert, Oriented to jp6 person, place, time. EENT: No deficits noted. Cardiovascular: Rhythm is sinus rhythm No ectopy. Respiratory: Airway is patent Respiratory effort is even, unlabored, Respiratory pattern is regular, symmetrical. Derm: Skin is pink, warm & dry. 09/30 00:34 Reassessment: Patient states symptoms have improved. General: Appears in no apparent jp6 distress, comfortable. Vital Signs: 09/29 21:05 BP 137 / 73; Pulse 124; Resp 18 S; Temp 100.3(O); Pulse Ox 95% on R/A; Weight 56.7 kg rn1 (R); Height 5 ft. 4 in. (162.56 cm) (R); Pain 3/10; 21:22 BP 156 / 73 (auto/); jp6 21:23 Pulse 117 MON; Pulse Ox 95% ; jp6 22:23 Pulse 103 MON; Pulse Ox 97% ; jp6 23:22 BP 146 / 73 (auto/); jp6 23:22 Pulse 98 MON; Pulse Ox 95% ; jp6 23:30 BP 141 / 70 (auto/); jp6 23:30 Pulse 101 MON; Pulse Ox 94% ; jp6 09/30 00:00 BP 151 / 72 (auto/); jp6 00:00 Pulse 101 MON; Pulse Ox 95% ; jp6 00:30 Pulse 97 MON; Pulse Ox 94% ; jp6 00:30 Temp 100(TE); jp6 09/29 21:05 Body Mass Index 21.46 (56.70 kg, 162.56 cm) rn1 Vitals: 09/29 21:05 Log In Time: September 29, 2016 at 21:05. gr2 ED Course: 21:05 Patient visited by Svitlana Azevedo. gr2 21:05 Matthew Muprhy PA is Private Physician. gr2 21:05 Patient moved to Waiting gr2 21:07 Patient visited by Svitlana Azevedo. gr2 21:07 Patient moved to Pre RCE gr2 21:10 Triage Initiated ttb 21:14 Patient moved to 1 jmb 21:15 Leonora Matt,RN is Primary Nurse. jp6 21:20 Ricky Barraza DO is Attending Physician. cs11 21:21 Patient visited by Ricky Barraza DO. cs11 22:10 Lactic Acid (Spicer tube on ice) Sent. ls3 22:10 Thyroid Profile Sent. ls3 22:11 Patient visited by Ally Barraza PCA. ls3 22:11 Creatine Phosphokinase Sent. ls3 22:11 MED Profile Sent. ls3 22:11 CBC with Diff Sent. ls3 22:11 -Blood Culture Sent. ls3 22:11 Labs drawn. (by ED staff). Sent per order to lab. ls3 22:17 -Influenza A&B Rapid Antigen - Nose Sent. jp6 22:23 The patient / caregiver is instructed regarding the plan of care and ED course. Cardiac jp6 monitor on. Pulse ox on. NIBP on. Warm blanket given. 22:23 Inserted saline lock: 20 gauge in left forearm and blood collected. No procedures done jp6 that require assistance. 22:24 [facility] [place] Payment Agreement was scanned into [employer] and attached to record. zo 22:49 Patient visited by Emili Fung RN. sls1 22:49 Notified attending ED physician of Critical lab value. sls1 22:54 Urine Culture Sent. ls3 22:54 Urinalysis Sent. ls3 22:54 Urine collected. Clean catch specimen. Urine specimen sent to lab. ls3 23:08 Patient visited by Bruna Roberts, Sign Language Instructor. jlm 23:08 BLOOD CULTURES Sent. jlm 23:23 Patient visited by Bruna Roberts, Sign Language Instructor. jlm 23:41 Delmy Taylor medical clerical assistant. ys2 23:49 Chest, 2 View (pa\E\lat) Returned. EDMS 23:55 Matthew Murphy PA is Referral Physician. cs11 09/30 00:46 Discontinued lock bleeding controlled, pressure dressing applied, No redness/swelling jp6 at site. 07:59 T-Sheet-- Draft Copy was scanned into [employer] and attached to record. gb Administered Medications: 09/29 22:16 Drug: NS 0.9% 500 ml [sodium chloride 0.9 % intravenous solution] Route: IV; Rate: jp6 bolus; Site: left forearm; 22:17 Drug: Acetaminophen 650 mg [acetaminophen 325 mg tablet (2 tabs)] Route: PO; jp6 22:17 Drug: Metoclopramide 10 mg [metoclopramide 5 mg/mL injection solution] Route: IV; Rate: jp6 40 mg/hr; Infused Over: 15 mins; Site: left forearm; 23:15 Drug: NS 0.9% 500 ml [sodium chloride 0.9 % intravenous solution] Route: IV; Rate: jp6 bolus; Site: left antecubital; 23:48 Drug: cefTRIAXone 1 grams [ceftriaxone 1 gram solution for injection] Route: IVPB; jp6 Infused Over: 30 mins; Site: left antecubital; Point of Care Testing: Blood Glucose: 21:12 Blood Glucose: 219 mg/dL; [facility] Ranges: Order Results: Lab Order: Fingerstick Blood Sugar; SPEC'M 09/29/16 21:09 Test: BEDSIDE GLUCOSE; Value: 219; Range: 83-110; Abnormal: Above high normal; Units: MG/DL; Status: F Lab Order: -Influenza A&B Rapid Antigen - Nose; SPEC'M 09/29/16 22:11 Test: INFLUENZA A RAPID SCR by ICA; Value: INFLUENZA A RESULTS NEGATIVE; Status: F Test: INFLUENZA A RAPID SCR by ICA; Value: Comments:; Status: F Test: INFLUENZA B RAPID SCR by ICA; Value: INFLUENZA B RESULTS NEGATIVE; Status: F Test Note: ; The Influenza test is a direct rapid immunoassay for the qualitative detection of Influenza viral antigen. Cell culture (Viral Culture) testing should be considered to confirm NEGATIVE results and to assist in detecting other viruses that can provide similar clinical symptoms. Please contact the lab within 24 hours ([phone]) if confirmatory testing is desired. Lab Order: CBC with Diff; SPEC'M 09/29/16 22:06 Test: WHITE BLOOD COUNT; Value: 11.5; Range: 4.0-10.0; Abnormal: Above high normal; Units: K/mm3; Status: F Test: RED BLOOD COUNT; Value: 4.24; Range: 4.30-6.10; Abnormal: Below low normal; Units: M/mm3; Status: F Test: HEMOGLOBIN; Value: 13.0; Range: 14.0-18.0; Abnormal: Below low normal; Units: g/dl; Status: F Test: HEMATOCRIT; Value: 39.9; Range: 42.0-52.0; Abnormal: Below low normal; Units: %; Status: F Test: MEAN CORPUSCULAR VOLUME; Value: 94.2; Range: 80.0-96.0; Units: fl; Status: F Test: MEAN CORPUSCULAR HEMOGLOBIN; Value: 30.6; Range: 27.0-33.0; Units: pg; Status: F Test: MEAN CORPUSCULAR HGB CONC; Value: 32.5; Range: 32.0-36.5; Units: g/dl; Status: F Test: RED CELL DISTRIBUTION WIDTH; Value: 12.5; Range: 11.5-14.5; Units: %; Status: F Test: PLATELET COUNT, AUTOMATED; Value: 190; Range: 150-450; Units: k/mm3; Status: F Test: NEUTROPHILS %; Value: 80.0; Range: 36.0-66.0; Abnormal: Above high normal; Units: %; Status: F Test: LYMPH %; Value: 11.4; Range: 24.0-44.0; Abnormal: Below low normal; Units: %; Status: F Test: MONO %; Value: 6.2; Range: 0.0-5.0; Abnormal: Above high normal; Units: %; Status: F Test: EOS %; Value: 0.6; Range: 0.0-3.0; Units: %; Status: F Test: BASO %; Value: 0.4; Range: 0.0-1.0; Units: %; Status: F Test: LARGE UNSTAINED CELL %; Value: 1.3; Range: 0.0-4.0; Units: %; Status: F Test: NEUTROPHILS #; Value: 9.2; Range: 1.8-7.7; Abnormal: Above high normal; Units: K/mm3; Status: F Test: LYMPH #; Value: 1.3; Range: 1.5-4.5; Abnormal: Below low normal; Units: K/mm3; Status: F Test: MONO #; Value: 0.7; Range: 0.0-0.8; Units: K/mm3; Status: F Test: EOS #; Value: 0.1; Range: 0.0-0.50; Units: K/mm3; Status: F Test: BASO #; Value: 0.0; Range: 0.0-0.2; Units: K/mm3; Status: F Test: LARGE UNSTAINED CELL #; Value: 0.2; Range: 0.0-0.4; Units: K/mm3; Status: F Lab Order: MED Profile; SPEC'M 09/29/16 22:06 Test: GLUCOSE, FASTING; Value: 170; Range: 83-110; Abnormal: Above high normal; Units: MG/DL; Status: F Test: BLOOD UREA NITROGEN; Value: 13; Range: 7-18; Units: MG/DL; Status: F Test: CREATININE FOR GFR; Value: 1.52; Range: 0.70-1.30; Abnormal: Above high normal; Units: MG/DL; Status: F Test: GLOMERULAR FILTRATION RATE; Value: 48.0; Range: >42; Status: F Test: SODIUM LEVEL; Value: 143; Range: 136-145; Units: MEQ/L; Status: F Test: POTASSIUM SERUM; Value: 5.1; Range: 3.5-5.1; Units: MEQ/L; Status: F Test: CHLORIDE LEVEL; Value: 109; Range: 98-107; Abnormal: Above high normal; Units: MEQ/L; Status: F Test: CARBON DIOXIDE LEVEL; Value: 24; Range: 21-32; Units: MEQ/L; Status: F Test: ANION GAP; Value: 10; Range: 8-16; Units: MEQ/L; Status: F Test: CALCIUM LEVEL; Value: 8.4; Range: 8.8-10.2; Abnormal: Below low normal; Units: MG/DL; Status: F Test Note: ; Units are mL/min/1.73 m2 Chronic Kidney Disease Staging per NKF: Stage I & II GFR >=60 Normal to Mildly Decreased Stage III GFR 30-59 Moderately Decreased Stage IV GFR 15-29 Severely Decreased Stage V GFR <15 Very Little GFR Left ESRD GFR <15 on [employer] Lab Order: -Blood Culture; SPEC'M 09/29/16 22:06 Test: BLOOD CULTURE; Value: No growth after 24 hours . All specimens observed; Status: F Test: BLOOD CULTURE; Value: for 5 days. Results final at that time.; Status: F Test: BLOOD CULTURE; Value: No Growth after 48 hours. All Specimens observed; Status: F Test: BLOOD CULTURE; Value: for 7 days. Results final at that time.; Status: F Lab Order: Lactic Acid (Spicer tube on ice); SPECM 09/29/16 22:07 Test: LACTIC ACID LEVEL, LACTATE; Value: 3.4; Range: 0.4-2.0; Abnormal: Above upper panic limits; Units: MMOL/L; Status: F Lab Order: Thyroid Profile; SPECM 09/29/16 22:06 Test: T UPTAKE; Value: 33; Range: 33-40; Units: %; Status: F Test: THYROXINE (T4); Value: 6.9; Range: 4.5-12.0; Units: UG/DL; Status: F Test: FREE THYROXINE INDEX; Value: 2.3; Range: 1.4-3.8; Units: %; Status: F Test: THYROID STIMULATING HORMONE; Value: 3.830; Range: 0.358-3.740; Abnormal: Above high normal; Units: uIU/ML; Status: F Lab Order: Urinalysis; SPECM 09/29/16 22:52 Test: APPEARANCE, URINE; Value: CLOUDY; Range: CLEAR; Abnormal: Above high normal; Status: F Test: COLOR, URINE; Value: YELLOW; Range: YELLOW; Status: F Test: PH,URINE; Value: 5.0; Range: 5.0-9.0; Units: UNITS; Status: F Test: SPECIFIC GRAVITY URINE AUTO; Value: 1.023; Range: 1.002-1.035; Status: F Test: PROTEIN, URINE AUTO; Value: NEGATIVE; Range: NEGATIVE; Units: mg/dL; Status: F Test: GLUCOSE, URINE (UA) AUTO; Value: 3+; Range: NEGATIVE; Abnormal: Above high normal; Units: mg/dL; Status: F Test: KETONE, URINE AUTO; Value: NEGATIVE; Range: NEGATIVE; Units: mg/dL; Status: F Test: UROBILINOGEN, URINE AUTO; Value: 0.2; Range: 0.0-2.0; Units: mg/dL; Status: F Test: BILIRUBIN, URINE AUTO; Value: NEGATIVE; Range: NEGATIVE; Status: F Test: NITRITE, URINE AUTO; Value: POSITIVE; Range: NEGATIVE; Status: F Test: LEUKOCYTE ESTERASE, URINE AUTO; Value: 2+; Range: NEGATIVE; Abnormal: Above high normal; Status: F Test: BLOOD, URINE BLOOD; Value: 1+; Range: NEGATIVE; Abnormal: Above high normal; Status: F Test: WBC, URINE AUTO; Value: TNTC; Range: 0-3; Abnormal: Above high normal; Units: /HPF; Status: F Test: RBC, URINE AUTO; Value: 10; Range: 0-3; Abnormal: Above high normal; Units: /HPF; Status: F Test: BACTERIA, URINE AUTO; Value: 2+; Range: NEGATIVE; Abnormal: Above high normal; Status: F Test: SQUAMOUS EPITHELIAL CELL UR AU; Value: 1; Range: 0-6; Units: /HPF; Status: F Test: MUCUS, URINE; Value: SMALL; Range: NEGATIVE; Status: F Test: HYALINE CAST, URINE AUTO; Value: 0; Range: 0-1; Units: /LPF; Status: F Lab Order: Urine Culture; SPEC'M 09/29/16 22:06 Test: URINE CULTURE; Value: ORGANISM 1: KLEBSIELLA PNEUMONIAE; Status: F Test: URINE CULTURE; Value: KLEBSIELLA PNEUMONIAE; Status: F Test: URINE CULTURE; Value: COLONY COUNT CFU/ml >100,000; Status: F Test: URINE CULTURE; Value: GRAM NEG SENSI - VITEK 80; Status: F Test: URINE CULTURE; Value: Method: VIT2; Status: F Test: URINE CULTURE; Value: EXTD BRD SPCTRM BETA LACTAMASE -; Status: F Test: URINE CULTURE; Value: TRIMETHOPRIM/SULFAMETHOXAZOLE <=20 S; Status: F Test: URINE CULTURE; Value: AMPICILLIN >=32 R; Status: F Test: URINE CULTURE; Value: GENTAMICIN <=1 S; Status: F Test: URINE CULTURE; Value: NITROFURANTOIN 64 I; Status: F Test: URINE CULTURE; Value: CEFAZOLIN <=4 S; Status: F Test: URINE CULTURE; Value: LEVOFLOXACIN <=0.12 S; Status: F Test: URINE CULTURE; Value: TOBRAMYCIN <=1 S; Status: F Test: URINE CULTURE; Value: CEFTRIAXONE <=1 S; Status: F Test: URINE CULTURE; Value: CEFTAZIDIME <=1 S; Status: F Test: URINE CULTURE; Value: AMPICILLIN/SULBACTAM 4 S; Status: F Test: URINE CULTURE; Value: PIPERACILLIN/TAZOBACTAM <=4 S; Status: F Test: URINE CULTURE; Value: AZTREONAM <=1 S; Status: F Test: URINE CULTURE; Value: ERTAPENEM <=0.5 S; Status: F Test: URINE CULTURE; Value: MEROPENEM <=0.25 S; Status: F Test: URINE CULTURE; Value: TIGECYCLINE 1 S; Status: F Test: URINE CULTURE; Value: CEFEPIME <=1 S; Status: F Lab Order: Creatine Phosphokinase; SPEC'M 09/29/16 22:06 Test: CPK CREATINE PHOSPHOKINASE; Value: 78; Range: 39-308; Units: U/L; Status: F Lab Order: BLOOD CULTURES; SPEC'M 09/29/16 23:07 Test: BLOOD CULTURE; Value: No growth after 24 hours . All specimens observed; Status: F Test: BLOOD CULTURE; Value: for 5 days. Results final at that time.; Status: F Test: BLOOD CULTURE; Value: No Growth after 48 hours. All Specimens observed; Status: F Test: BLOOD CULTURE; Value: for 7 days. Results final at that time.; Status: F Radiology Order: Chest, 2 View (pa\E\lat) Test: Chest, 2 View (pa\E\lat) REASON FOR EXAMINATION: Cough; Clinical: Cough.; ; Technique: PA and lateral.; ; Comparison: 09/27/2016, 04/17/2013.; ; Findings:; Mediastinum and cardiac silhouette are normal. Lung michael demonstrate chronic; changes primarily involving the left base/lingula. No obvious acute; consolidation effusion or pneumothorax is appreciated. However, subtle; superimposed left basilar atelectasis cannot definitively be excluded. Skeletal; structures demonstrate age-related degenerative changes and evidence for prior; infarction involving the right shoulder.; ; Impression:; Chronic stable-appearing changes.; Cannot exclude subtle superimposed left basilar atelectasis.; ; ; Signed by; Sreekanth Perez MD 09/29/2016 10:59 P; Outcome: 23:55 Discharge ordered by Provider. cs11 09/30 00:30 Discharge Assessment: Patient awake, alert and oriented x 3. No cognitive and/or jp6 functional deficits noted. Patient verbalized understanding of disposition instructions. patient administered narcotics - no. The following High Risk Discharge criteria are identified: None. Condition: improved. Discharge instructions given to patient, friend, Instructed on discharge instructions, follow up and referral plans. medication usage, Demonstrated understanding of instructions, medications, Pt was receptive of discharge instructions/ teaching. Prescriptions given X 1. No special radiology studies were completed. Property sent home with patient. 00:46 Patient left the ED. jp6 Addendum: 10/02/2016 08:07 Narrative: Urine culture reviewed ,pt tolerated well. [facility] Signatures: Dispatcher [employer] EDMS Xuan Stanley, RN RN [facility] Elizabeth Dodge, Reg Reg gb Bren Lord Shannon, RN RN sls1 Ricky Barraza, DO cs11 Paty Walton, RN RN ttSvitlana Mckee gr2 Rayshawn Pagan,RN RN Bruna Bond, Sign Language Instructor Unit jlEdouard Denson rn1 Ally Barraza, DOT NET DEVELOPER DOT NET DEVELOPER ls3 Delmy Taylor ys2 Leonora Matt,RN RN jp6 Corrections: (The following items were deleted from the chart) 09/29 21:26 21:05 BP 137 / 73; Pulse 124bpm; Resp 18bpm; Spontaneous; Pulse Ox 95% RA; Temp 100.3F rn1 Oral; 56.7 kg Reported; Height 5 ft. 9 in. Reported; BMI: 18.4; Pain 3/10; gr2 MTDD
--- NOTE | 2016-10-02 08:10 | EDDOCDS ---
Physician Documentation [facility] Name: Toy Sharma Age: 76 yrs Sex: Male : 1940 Arrival Date: 09/29/2016 Time: 21:03 Bed 1 Private MD: Matthew Murphy Disposition: 09/29/16 23:55 Discharged to Home/Self Care. Impression: Urinary tract infection, site not specified, Dehydration. - Condition is Stable. - Prescriptions for Cipro 500 mg Oral Tablet - take 1 tablet by ORAL route every 12 hours; 10 tablet. - Medication Reconciliation, Local Pharmacy Hours form. - Follow up: Matthew Murphy PA; When: 1 - 2 days; Reason: Recheck today's complaints. - Problem is new. - Symptoms have improved. Historical: - Allergies: no known allergies; - Home Meds: 1. metformin 500 mg Oral tab 2 tabs 2 times per day (Last dose: 09/29/2016 08:00) 2. simvastatin 40 mg Oral tab 1 tab 1x/week (Last dose: Unknown) 3. Vitamin D2 oral oral once wkly (Last dose: Unknown) 4. tamsulosin 0.4 mg oral cp24 1 cap once daily (Last dose: 09/29/2016 08:00) 5. meloxicam 7.5 mg oral tab 1 tab once daily (Last dose: 09/29/2016 08:00) 6. folic acid 1 mg Oral tab 1 tab once daily (Last dose: 09/29/2016 08:00) 7. lisinopril 2.5 mg Oral tab 1 tab once daily (Last dose: 09/29/2016 08:00) - PMHx: Hypertension; Diabetes - NIDDM: controlled; BPH; - PSHx: possible testicular surgery; - Social history: Smoking status: Patient states was never smoker of tobacco. Patient uses alcohol but reports only rare drinking. Patient/guardian denies using street drugs, No barriers to communication noted, The patient speaks fluent [place] Citizen, Speaks appropriately for age. - Family history: Not pertinent. - : The pt / caregiver states he / she is not on anticoagulants. Home medication list is obtained from the caregiver. - Exposure Risk Screening:: None identified. Vital Signs: 09/29 21:05 BP 137 / 73; Pulse 124; Resp 18 S; Temp 100.3(O); Pulse Ox 95% on R/A; Weight 56.7 kg / rn1 125 lbs (R); Height 5 ft. 4 in. (162.56 cm) (R); Pain 3/10; 21:22 BP 156 / 73 (auto/); jp6 21:23 Pulse 117 MON; Pulse Ox 95% ; jp6 22:23 Pulse 103 MON; Pulse Ox 97% ; jp6 23:22 BP 146 / 73 (auto/); jp6 23:22 Pulse 98 MON; Pulse Ox 95% ; jp6 23:30 BP 141 / 70 (auto/); jp6 23:30 Pulse 101 MON; Pulse Ox 94% ; jp6 09/30 00:00 BP 151 / 72 (auto/); jp6 00:00 Pulse 101 MON; Pulse Ox 95% ; jp6 00:30 Pulse 97 MON; Pulse Ox 94% ; jp6 00:30 Temp 100(TE); jp6 09/29 21:05 Body Mass Index 21.46 (56.70 kg, 162.56 cm) rn1 MDM: 09/29 21:18 Fingerstick Blood Sugar Ordered. EDMS 21:43 -Blood Culture (Adults Only), peripheral from different site, or from device/port/PICC cs11 etc. if present ordered. 21:44 CBC with Diff Ordered. EDMS 21:44 MED Profile Ordered. EDMS 21:44 Lactic Acid (Spicer tube on ice) Ordered. EDMS 21:44 Thyroid Profile Ordered. EDMS 21:44 Urinalysis Ordered. EDMS 21:44 Creatine Phosphokinase Ordered. EDMS 21:44 -Influenza A&B Rapid Antigen - Nose Ordered. EDMS 21:44 -Blood Culture Ordered. EDMS 21:44 Urine Culture Ordered. EDMS 21:46 IV Saline Lock ordered. cs11 21:46 Acetaminophen Tablet 650 mg PO once ordered. cs11 21:47 Chest, 2 View (pa\E\lat) Ordered. EDMS 21:48 -Blood Culture (Adults Only), peripheral from different site, or from device/port/PICC tmm1 etc. if present complete. 21:49 Metoclopramide 10 mg IV at 40 mg/hr once over 15 mins ordered. cs11 21:49 NS 0.9% 500 ml IV at bolus once ordered. cs11 21:50 BLOOD CULTURES Ordered. EDMS 22:14 Financial registration complete. zo 22:24 [facility] [place] Payment Agreement was scanned into [employer] and attached to record. zo 22:44 Fingerstick Blood Sugar Reviewed. cs11 22:44 CBC with Diff Reviewed. cs11 22:44 -Influenza A&B Rapid Antigen - Nose Reviewed. cs11 23:13 MED Profile Reviewed. cs11 23:13 Lactic Acid (Spicer tube on ice) Reviewed. cs11 23:13 Thyroid Profile Reviewed. cs11 23:13 Creatine Phosphokinase Reviewed. cs11 23:13 NS 0.9% 500 ml IV at bolus once ordered. cs11 23:21 Urinalysis Reviewed. cs11 23:23 cefTRIAXone 1 grams IVPB once over 30 mins; dilute in 50mL of NS or D5W ordered. cs11 23:25 BED REQUEST+ADM ordered. EDMS 23:52 Chest, 2 View (pa\E\lat) Reviewed. cs11 09/30 07:59 T-Sheet-- Draft Copy was scanned into [employer] and attached to record. Point of Care Testing: Blood Glucose: 09/29 21:12 Blood Glucose: 219 mg/dL; jmb Ranges: Administered Medications: 22:16 Drug: NS 0.9% 500 ml [sodium chloride 0.9 % intravenous solution] Route: IV; Rate: jp6 bolus; Site: left forearm; 22:17 Drug: Acetaminophen 650 mg [acetaminophen 325 mg tablet (2 tabs)] Route: PO; jp6 22:17 Drug: Metoclopramide 10 mg [metoclopramide 5 mg/mL injection solution] Route: IV; Rate: jp6 40 mg/hr; Infused Over: 15 mins; Site: left forearm; 23:15 Drug: NS 0.9% 500 ml [sodium chloride 0.9 % intravenous solution] Route: IV; Rate: jp6 bolus; Site: left antecubital; 23:48 Drug: cefTRIAXone 1 grams [ceftriaxone 1 gram solution for injection] Route: IVPB; jp6 Infused Over: 30 mins; Site: left antecubital; Signatures: Dispatcher [employer] EDMS Elizabeth Dodge, Reg Reg gb Bren Lord Craig, DO cs11 Paty Walton RN RN ttb Judit, Liz, WEDDING DAY COORDINATOR WEDDING DAY COORDINATOR tmm1 Leonora MattRN RN jp6 The chart was reviewed and I authenticate all verbal orders and agree with the evaluation and treatment provided.Attachments: 22:24 [facility] Payment Agreement zo 09/30 07:59 T-Sheet-- Draft Copy gb Chart Complete MTDD
--- NOTE | 2016-10-02 08:10 | EDDOCDS ---
Physician Documentation [facility] Name: Toy Sharma Age: 76 yrs Sex: Male : 1940 Arrival Date: 09/29/2016 Time: 21:03 Bed 1 Private MD: Matthew Murphy Disposition: 09/29/16 23:55 Discharged to Home/Self Care. Impression: Urinary tract infection, site not specified, Dehydration. - Condition is Stable. - Prescriptions for Cipro 500 mg Oral Tablet - take 1 tablet by ORAL route every 12 hours; 10 tablet. - Medication Reconciliation, Local Pharmacy Hours form. - Follow up: Matthew Murphy PA; When: 1 - 2 days; Reason: Recheck today's complaints. - Problem is new. - Symptoms have improved. Historical: - Allergies: no known allergies; - Home Meds: 1. metformin 500 mg Oral tab 2 tabs 2 times per day (Last dose: 09/29/2016 08:00) 2. simvastatin 40 mg Oral tab 1 tab 1x/week (Last dose: Unknown) 3. Vitamin D2 oral oral once wkly (Last dose: Unknown) 4. tamsulosin 0.4 mg oral cp24 1 cap once daily (Last dose: 09/29/2016 08:00) 5. meloxicam 7.5 mg oral tab 1 tab once daily (Last dose: 09/29/2016 08:00) 6. folic acid 1 mg Oral tab 1 tab once daily (Last dose: 09/29/2016 08:00) 7. lisinopril 2.5 mg Oral tab 1 tab once daily (Last dose: 09/29/2016 08:00) - PMHx: Hypertension; Diabetes - NIDDM: controlled; BPH; - PSHx: possible testicular surgery; - Social history: Smoking status: Patient states was never smoker of tobacco. Patient uses alcohol but reports only rare drinking. Patient/guardian denies using street drugs, No barriers to communication noted, The patient speaks fluent Romanian, Speaks appropriately for age. - Family history: Not pertinent. - : The pt / caregiver states he / she is not on anticoagulants. Home medication list is obtained from the caregiver. - Exposure Risk Screening:: None identified. Vital Signs: 09/29 21:05 BP 137 / 73; Pulse 124; Resp 18 S; Temp 100.3(O); Pulse Ox 95% on R/A; Weight 56.7 kg / rn1 125 lbs (R); Height 5 ft. 4 in. (162.56 cm) (R); Pain 3/10; 21:22 BP 156 / 73 (auto/); jp6 21:23 Pulse 117 MON; Pulse Ox 95% ; jp6 22:23 Pulse 103 MON; Pulse Ox 97% ; jp6 23:22 BP 146 / 73 (auto/); jp6 23:22 Pulse 98 MON; Pulse Ox 95% ; jp6 23:30 BP 141 / 70 (auto/); jp6 23:30 Pulse 101 MON; Pulse Ox 94% ; jp6 09/30 00:00 BP 151 / 72 (auto/); jp6 00:00 Pulse 101 MON; Pulse Ox 95% ; jp6 00:30 Pulse 97 MON; Pulse Ox 94% ; jp6 00:30 Temp 100(TE); jp6 09/29 21:05 Body Mass Index 21.46 (56.70 kg, 162.56 cm) rn1 MDM: 09/29 21:18 Fingerstick Blood Sugar Ordered. EDMS 21:43 -Blood Culture (Adults Only), peripheral from different site, or from device/port/PICC cs11 etc. if present ordered. 21:44 CBC with Diff Ordered. EDMS 21:44 MED Profile Ordered. EDMS 21:44 Lactic Acid (Spicer tube on ice) Ordered. EDMS 21:44 Thyroid Profile Ordered. EDMS 21:44 Urinalysis Ordered. EDMS 21:44 Creatine Phosphokinase Ordered. EDMS 21:44 -Influenza A&B Rapid Antigen - Nose Ordered. EDMS 21:44 -Blood Culture Ordered. EDMS 21:44 Urine Culture Ordered. EDMS 21:46 IV Saline Lock ordered. cs11 21:46 Acetaminophen Tablet 650 mg PO once ordered. cs11 21:47 Chest, 2 View (pa\E\lat) Ordered. EDMS 21:48 -Blood Culture (Adults Only), peripheral from different site, or from device/port/PICC tmm1 etc. if present complete. 21:49 Metoclopramide 10 mg IV at 40 mg/hr once over 15 mins ordered. cs11 21:49 NS 0.9% 500 ml IV at bolus once ordered. cs11 21:50 BLOOD CULTURES Ordered. EDMS 22:14 Financial registration complete. zo 22:24 [facility] [place] Payment Agreement was scanned into [employer] and attached to record. zo 22:44 Fingerstick Blood Sugar Reviewed. cs11 22:44 CBC with Diff Reviewed. cs11 22:44 -Influenza A&B Rapid Antigen - Nose Reviewed. cs11 23:13 MED Profile Reviewed. cs11 23:13 Lactic Acid (Spicer tube on ice) Reviewed. cs11 23:13 Thyroid Profile Reviewed. cs11 23:13 Creatine Phosphokinase Reviewed. cs11 23:13 NS 0.9% 500 ml IV at bolus once ordered. cs11 23:21 Urinalysis Reviewed. cs11 23:23 cefTRIAXone 1 grams IVPB once over 30 mins; dilute in 50mL of NS or D5W ordered. cs11 23:25 BED REQUEST+ADM ordered. EDMS 23:52 Chest, 2 View (pa\E\lat) Reviewed. cs11 09/30 07:59 T-Sheet-- Draft Copy was scanned into [employer] and attached to record. Point of Care Testing: Blood Glucose: 09/29 21:12 Blood Glucose: 219 mg/dL; jmb Ranges: Administered Medications: 22:16 Drug: NS 0.9% 500 ml [sodium chloride 0.9 % intravenous solution] Route: IV; Rate: jp6 bolus; Site: left forearm; 22:17 Drug: Acetaminophen 650 mg [acetaminophen 325 mg tablet (2 tabs)] Route: PO; jp6 22:17 Drug: Metoclopramide 10 mg [metoclopramide 5 mg/mL injection solution] Route: IV; Rate: jp6 40 mg/hr; Infused Over: 15 mins; Site: left forearm; 23:15 Drug: NS 0.9% 500 ml [sodium chloride 0.9 % intravenous solution] Route: IV; Rate: jp6 bolus; Site: left antecubital; 23:48 Drug: cefTRIAXone 1 grams [ceftriaxone 1 gram solution for injection] Route: IVPB; jp6 Infused Over: 30 mins; Site: left antecubital; Signatures: Dispatcher [employer] EDMS Elizabeth Dodge, Reg Reg gb Bren Lord Craig, DO cs11 Paty Walton RN RN ttb Judit, Liz, SENIOR TALENT MANAGEMENT CONSULTANT SENIOR TALENT MANAGEMENT CONSULTANT tmm1 Leonora MattRN RN jp6 The chart was reviewed and I authenticate all verbal orders and agree with the evaluation and treatment provided.Attachments: 22:24 [facility] Payment Agreement zo 09/30 07:59 T-Sheet-- Draft Copy gb Chart Complete MTDD
--- NOTE | 2016-10-02 08:21 | EDDOCDS ---
Physician Documentation [facility] Name: Toy Sharma Age: 76 yrs Sex: Male : 1940 Arrival Date: 09/29/2016 Time: 21:03 Bed 1 Private MD: Matthew Murphy Disposition: 09/29/16 23:55 Discharged to Home/Self Care. Impression: Urinary tract infection, site not specified, Dehydration. - Condition is Stable. - Prescriptions for Cipro 500 mg Oral Tablet - take 1 tablet by ORAL route every 12 hours; 10 tablet. - Medication Reconciliation, Local Pharmacy Hours form. - Follow up: Matthew Murphy PA; When: 1 - 2 days; Reason: Recheck today's complaints. - Problem is new. - Symptoms have improved. Historical: - Allergies: no known allergies; - Home Meds: 1. metformin 500 mg Oral tab 2 tabs 2 times per day (Last dose: 09/29/2016 08:00) 2. simvastatin 40 mg Oral tab 1 tab 1x/week (Last dose: Unknown) 3. Vitamin D2 oral oral once wkly (Last dose: Unknown) 4. tamsulosin 0.4 mg oral cp24 1 cap once daily (Last dose: 09/29/2016 08:00) 5. meloxicam 7.5 mg oral tab 1 tab once daily (Last dose: 09/29/2016 08:00) 6. folic acid 1 mg Oral tab 1 tab once daily (Last dose: 09/29/2016 08:00) 7. lisinopril 2.5 mg Oral tab 1 tab once daily (Last dose: 09/29/2016 08:00) - PMHx: Hypertension; Diabetes - NIDDM: controlled; BPH; - PSHx: possible testicular surgery; - Social history: Smoking status: Patient states was never smoker of tobacco. Patient uses alcohol but reports only rare drinking. Patient/guardian denies using street drugs, No barriers to communication noted, The patient speaks fluent Cambodian, Speaks appropriately for age. - Family history: Not pertinent. - : The pt / caregiver states he / she is not on anticoagulants. Home medication list is obtained from the caregiver. - Exposure Risk Screening:: None identified. Vital Signs: 09/29 21:05 BP 137 / 73; Pulse 124; Resp 18 S; Temp 100.3(O); Pulse Ox 95% on R/A; Weight 56.7 kg / rn1 125 lbs (R); Height 5 ft. 4 in. (162.56 cm) (R); Pain 3/10; 21:22 BP 156 / 73 (auto/); jp6 21:23 Pulse 117 MON; Pulse Ox 95% ; jp6 22:23 Pulse 103 MON; Pulse Ox 97% ; jp6 23:22 BP 146 / 73 (auto/); jp6 23:22 Pulse 98 MON; Pulse Ox 95% ; jp6 23:30 BP 141 / 70 (auto/); jp6 23:30 Pulse 101 MON; Pulse Ox 94% ; jp6 09/30 00:00 BP 151 / 72 (auto/); jp6 00:00 Pulse 101 MON; Pulse Ox 95% ; jp6 00:30 Pulse 97 MON; Pulse Ox 94% ; jp6 00:30 Temp 100(TE); jp6 09/29 21:05 Body Mass Index 21.46 (56.70 kg, 162.56 cm) rn1 MDM: 09/29 21:18 Fingerstick Blood Sugar Ordered. EDMS 21:43 -Blood Culture (Adults Only), peripheral from different site, or from device/port/PICC cs11 etc. if present ordered. 21:44 CBC with Diff Ordered. EDMS 21:44 MED Profile Ordered. EDMS 21:44 Lactic Acid (Spicer tube on ice) Ordered. EDMS 21:44 Thyroid Profile Ordered. EDMS 21:44 Urinalysis Ordered. EDMS 21:44 Creatine Phosphokinase Ordered. EDMS 21:44 -Influenza A&B Rapid Antigen - Nose Ordered. EDMS 21:44 -Blood Culture Ordered. EDMS 21:44 Urine Culture Ordered. EDMS 21:46 IV Saline Lock ordered. cs11 21:46 Acetaminophen Tablet 650 mg PO once ordered. cs11 21:47 Chest, 2 View (pa\E\lat) Ordered. EDMS 21:48 -Blood Culture (Adults Only), peripheral from different site, or from device/port/PICC tmm1 etc. if present complete. 21:49 Metoclopramide 10 mg IV at 40 mg/hr once over 15 mins ordered. cs11 21:49 NS 0.9% 500 ml IV at bolus once ordered. cs11 21:50 BLOOD CULTURES Ordered. EDMS 22:14 Financial registration complete. zo 22:24 [facility] [place] Payment Agreement was scanned into [employer] and attached to record. zo 22:44 Fingerstick Blood Sugar Reviewed. cs11 22:44 CBC with Diff Reviewed. cs11 22:44 -Influenza A&B Rapid Antigen - Nose Reviewed. cs11 23:13 MED Profile Reviewed. cs11 23:13 Lactic Acid (Spicer tube on ice) Reviewed. cs11 23:13 Thyroid Profile Reviewed. cs11 23:13 Creatine Phosphokinase Reviewed. cs11 23:13 NS 0.9% 500 ml IV at bolus once ordered. cs11 23:21 Urinalysis Reviewed. cs11 23:23 cefTRIAXone 1 grams IVPB once over 30 mins; dilute in 50mL of NS or D5W ordered. cs11 23:25 BED REQUEST+ADM ordered. EDMS 23:52 Chest, 2 View (pa\E\lat) Reviewed. cs11 09/30 07:59 T-Sheet-- Draft Copy was scanned into [[employer] and attached to record. Point of Care Testing: Blood Glucose: 09/29 21:12 Blood Glucose: 219 mg/dL; jmb Ranges: Administered Medications: 22:16 Drug: NS 0.9% 500 ml [sodium chloride 0.9 % intravenous solution] Route: IV; Rate: jp6 bolus; Site: left forearm; 22:17 Drug: Acetaminophen 650 mg [acetaminophen 325 mg tablet (2 tabs)] Route: PO; jp6 22:17 Drug: Metoclopramide 10 mg [metoclopramide 5 mg/mL injection solution] Route: IV; Rate: jp6 40 mg/hr; Infused Over: 15 mins; Site: left forearm; 23:15 Drug: NS 0.9% 500 ml [sodium chloride 0.9 % intravenous solution] Route: IV; Rate: jp6 bolus; Site: left antecubital; 23:48 Drug: cefTRIAXone 1 grams [ceftriaxone 1 gram solution for injection] Route: IVPB; jp6 Infused Over: 30 mins; Site: left antecubital; Signatures: Dispatcher [employer] EDMS Elizabeth Dodge, Reg Reg gb Bren Lord Craig, DO cs11 Paty Walton RN RN ttb Judit, Liz, PORTER MARINA PORTER MARINA tmm1 Leonora MattRN RN jp6 The chart was reviewed and I authenticate all verbal orders and agree with the evaluation and treatment provided.Attachments: 22:24 [facility] Payment Agreement zo 09/30 07:59 T-Sheet-- Draft Copy gb Chart Complete MTDD
--- NOTE | 2016-10-02 08:21 | EDDOCDS ---
Physician Documentation [facility] Name: Toy Sahrma Age: 76 yrs Sex: Male : 1940 Arrival Date: 09/29/2016 Time: 21:03 Bed 1 Private MD: Matthew Murphy Disposition: 09/29/16 23:55 Discharged to Home/Self Care. Impression: Urinary tract infection, site not specified, Dehydration. - Condition is Stable. - Prescriptions for Cipro 500 mg Oral Tablet - take 1 tablet by ORAL route every 12 hours; 10 tablet. - Medication Reconciliation, Local Pharmacy Hours form. - Follow up: Matthew Murphy PA; When: 1 - 2 days; Reason: Recheck today's complaints. - Problem is new. - Symptoms have improved. Historical: - Allergies: no known allergies; - Home Meds: 1. metformin 500 mg Oral tab 2 tabs 2 times per day (Last dose: 09/29/2016 08:00) 2. simvastatin 40 mg Oral tab 1 tab 1x/week (Last dose: Unknown) 3. Vitamin D2 oral oral once wkly (Last dose: Unknown) 4. tamsulosin 0.4 mg oral cp24 1 cap once daily (Last dose: 09/29/2016 08:00) 5. meloxicam 7.5 mg oral tab 1 tab once daily (Last dose: 09/29/2016 08:00) 6. folic acid 1 mg Oral tab 1 tab once daily (Last dose: 09/29/2016 08:00) 7. lisinopril 2.5 mg Oral tab 1 tab once daily (Last dose: 09/29/2016 08:00) - PMHx: Hypertension; Diabetes - NIDDM: controlled; BPH; - PSHx: possible testicular surgery; - Social history: Smoking status: Patient states was never smoker of tobacco. Patient uses alcohol but reports only rare drinking. Patient/guardian denies using street drugs, No barriers to communication noted, The patient speaks fluent Bulgarian, Speaks appropriately for age. - Family history: Not pertinent. - : The pt / caregiver states he / she is not on anticoagulants. Home medication list is obtained from the caregiver. - Exposure Risk Screening:: None identified. Vital Signs: 09/29 21:05 BP 137 / 73; Pulse 124; Resp 18 S; Temp 100.3(O); Pulse Ox 95% on R/A; Weight 56.7 kg / rn1 125 lbs (R); Height 5 ft. 4 in. (162.56 cm) (R); Pain 3/10; 21:22 BP 156 / 73 (auto/); jp6 21:23 Pulse 117 MON; Pulse Ox 95% ; jp6 22:23 Pulse 103 MON; Pulse Ox 97% ; jp6 23:22 BP 146 / 73 (auto/); jp6 23:22 Pulse 98 MON; Pulse Ox 95% ; jp6 23:30 BP 141 / 70 (auto/); jp6 23:30 Pulse 101 MON; Pulse Ox 94% ; jp6 09/30 00:00 BP 151 / 72 (auto/); jp6 00:00 Pulse 101 MON; Pulse Ox 95% ; jp6 00:30 Pulse 97 MON; Pulse Ox 94% ; jp6 00:30 Temp 100(TE); jp6 09/29 21:05 Body Mass Index 21.46 (56.70 kg, 162.56 cm) rn1 MDM: 09/29 21:18 Fingerstick Blood Sugar Ordered. EDMS 21:43 -Blood Culture (Adults Only), peripheral from different site, or from device/port/PICC cs11 etc. if present ordered. 21:44 CBC with Diff Ordered. EDMS 21:44 MED Profile Ordered. EDMS 21:44 Lactic Acid (Spicer tube on ice) Ordered. EDMS 21:44 Thyroid Profile Ordered. EDMS 21:44 Urinalysis Ordered. EDMS 21:44 Creatine Phosphokinase Ordered. EDMS 21:44 -Influenza A&B Rapid Antigen - Nose Ordered. EDMS 21:44 -Blood Culture Ordered. EDMS 21:44 Urine Culture Ordered. EDMS 21:46 IV Saline Lock ordered. cs11 21:46 Acetaminophen Tablet 650 mg PO once ordered. cs11 21:47 Chest, 2 View (pa\E\lat) Ordered. EDMS 21:48 -Blood Culture (Adults Only), peripheral from different site, or from device/port/PICC tmm1 etc. if present complete. 21:49 Metoclopramide 10 mg IV at 40 mg/hr once over 15 mins ordered. cs11 21:49 NS 0.9% 500 ml IV at bolus once ordered. cs11 21:50 BLOOD CULTURES Ordered. EDMS 22:14 Financial registration complete. zo 22:24 [facility] [place] Payment Agreement was scanned into [employer] and attached to record. zo 22:44 Fingerstick Blood Sugar Reviewed. cs11 22:44 CBC with Diff Reviewed. cs11 22:44 -Influenza A&B Rapid Antigen - Nose Reviewed. cs11 23:13 MED Profile Reviewed. cs11 23:13 Lactic Acid (Spicer tube on ice) Reviewed. cs11 23:13 Thyroid Profile Reviewed. cs11 23:13 Creatine Phosphokinase Reviewed. cs11 23:13 NS 0.9% 500 ml IV at bolus once ordered. cs11 23:21 Urinalysis Reviewed. cs11 23:23 cefTRIAXone 1 grams IVPB once over 30 mins; dilute in 50mL of NS or D5W ordered. cs11 23:25 BED REQUEST+ADM ordered. EDMS 23:52 Chest, 2 View (pa\E\lat) Reviewed. cs11 09/30 07:59 T-Sheet-- Draft Copy was scanned into [employer] and attached to record. Point of Care Testing: Blood Glucose: 09/29 21:12 Blood Glucose: 219 mg/dL; jmb Ranges: Administered Medications: 22:16 Drug: NS 0.9% 500 ml [sodium chloride 0.9 % intravenous solution] Route: IV; Rate: jp6 bolus; Site: left forearm; 22:17 Drug: Acetaminophen 650 mg [acetaminophen 325 mg tablet (2 tabs)] Route: PO; jp6 22:17 Drug: Metoclopramide 10 mg [metoclopramide 5 mg/mL injection solution] Route: IV; Rate: jp6 40 mg/hr; Infused Over: 15 mins; Site: left forearm; 23:15 Drug: NS 0.9% 500 ml [sodium chloride 0.9 % intravenous solution] Route: IV; Rate: jp6 bolus; Site: left antecubital; 23:48 Drug: cefTRIAXone 1 grams [ceftriaxone 1 gram solution for injection] Route: IVPB; jp6 Infused Over: 30 mins; Site: left antecubital; Signatures: Dispatcher [employer] EDMS Elizabeth Dodge, Reg Reg gb Bren Lord Craig, DO cs11 Paty Walton RN RN ttb Judit, Liz, FISCAL SERVICES MANAGER FISCAL SERVICES MANAGER tmm1 Leonora MattRN RN jp6 The chart was reviewed and I authenticate all verbal orders and agree with the evaluation and treatment provided.Attachments: 22:24 [facility] Payment Agreement zo 09/30 07:59 T-Sheet-- Draft Copy gb Chart Complete MTDD
--- NOTE | 2016-10-02 08:21 | EDDOCDS ---
Nurse's Notes [facility] Name: Toy Sharma Age: 76 yrs Sex: Male : 1940 Arrival Date: 09/29/2016 Time: 21:03 Bed 1 Private MD: Matthew Murphy Diagnosis: Urinary tract infection, site not specified;Dehydration Presentation: 09/29 21:08 Presenting complaint: neighbor states pt cannot walk and is not his normal self today. ttb Chest was hurting 2 days ago while shopping but resolved.... [place] but they state his mentation is his norm. Adult Sepsis Screening: The patient does not have new or worsening altered mentation. Patient's respiratory rate is less than 22. Systolic blood pressure is greater than 100. Patient has a qSOFA score of 0- Negative Sepsis Screen. Suicide/Homicide risk assessment- the patient denies having any suicidal and/or homicidal ideations and does not present with any other emotional, behavioral or mental health complaints. Status: Patient is not a valet service attendant or dependent. Transition of care: patient was not received from another setting of care. 21:08 Acuity: RAISA Level 3 ttb 21:08 Method Of Arrival: Walkin/Carried/Asstd ttb Triage Assessment: 21:14 General: Appears in no apparent distress, well nourished, well groomed, Behavior is ttb appropriate for age, cooperative, pleasant. Pain: Denies pain. Neurological: Level of Consciousness is awake, alert, family reports generalized weakness today. EENT: Denies nasal congestion, nasal discharge. Cardiovascular: Chest pain is denied Parent/caregiver reports patient has had chest pain 2 days ago : stated to be resolved now. Respiratory: Airway is patent Respiratory effort is even, unlabored, Denies cough, shortness of breath. GI: Reports vomiting, Denies diarrhea, nausea. Derm: Skin is normal. Injury Description: No known injury. 21:14 Injury Description: pt fell from standing friends said pt stated he fell last week when ttb his blood sugar was low -- unsure if he hit his head.... called for help after falling and able to get himself up with his cane. Historical: - Allergies: no known allergies; - Home Meds: 1. metformin 500 mg Oral tab 2 tabs 2 times per day (Last dose: 09/29/2016 08:00) 2. simvastatin 40 mg Oral tab 1 tab 1x/week (Last dose: Unknown) 3. Vitamin D2 oral oral once wkly (Last dose: Unknown) 4. tamsulosin 0.4 mg oral cp24 1 cap once daily (Last dose: 09/29/2016 08:00) 5. meloxicam 7.5 mg oral tab 1 tab once daily (Last dose: 09/29/2016 08:00) 6. folic acid 1 mg Oral tab 1 tab once daily (Last dose: 09/29/2016 08:00) 7. lisinopril 2.5 mg Oral tab 1 tab once daily (Last dose: 09/29/2016 08:00) - PMHx: Hypertension; Diabetes - NIDDM: controlled; BPH; - PSHx: possible testicular surgery; - Social history: Smoking status: Patient states was never smoker of tobacco. Patient uses alcohol but reports only rare drinking. Patient/guardian denies using street drugs, No barriers to communication noted, The patient speaks fluent [place], Speaks appropriately for age. - Family history: Not pertinent. - : The pt / caregiver states he / she is not on anticoagulants. Home medication list is obtained from the caregiver. - Exposure Risk Screening:: None identified. Screenin:23 Screening information is obtained from the patient. Fall risk: At risk due to age, gait jp6 disturbance, immobility. Assistance ADL's: requires no assistance with activities of daily living. Abuse/DV Screen: The patient / caregiver reports he/she is: not in a situation that causes fear, pain or injury. Nutritional screening: poor appetite. home support is adequate. 09/30 00:30 Advance Directives: Currently, there is no health care proxy. There is no active DNR jp6 order. There is no living will. Assessment: 09/29 21:30 General: Appears in no apparent distress, comfortable, slender, Behavior is appropriate jp6 for age, cooperative. Pain: Denies pain. Neurological: No deficits noted. Level of Consciousness is awake, alert, Oriented to person, place, time. EENT: No deficits noted. Cardiovascular: Capillary refill < 3 seconds Heart tones S1 S2 present Rhythm is sinus rhythm No ectopy. Respiratory: No deficits noted. Airway is patent Respiratory effort is even, unlabored, Respiratory pattern is regular, symmetrical, Breath sounds are clear bilaterally. GI: Abdomen is flat, non- distended Bowel sounds present X 4 quads. Reports nausea, vomiting. : No deficits noted. Derm: Skin is pink, warm & dry. Musculoskeletal: Reports weakness in right leg and left leg inability to stand. 22:30 Reassessment: Patient denies pain at this time. Patient states feeling better. Pain: jp6 Denies pain. Cardiovascular: Capillary refill < 3 seconds Rhythm is sinus rhythm No ectopy. Respiratory: Airway is patent Respiratory effort is even, unlabored, Breath sounds are clear bilaterally. 22:30 Reassessment: Patient appears in no apparent distress at this time. Patient states jp6 feeling better. Patient states symptoms have improved. 23:30 Pain: Denies pain. Neurological: Level of Consciousness is awake, alert, Oriented to jp6 person, place, time. EENT: No deficits noted. Cardiovascular: Rhythm is sinus rhythm No ectopy. Respiratory: Airway is patent Respiratory effort is even, unlabored, Respiratory pattern is regular, symmetrical. Derm: Skin is pink, warm & dry. 09/30 00:34 Reassessment: Patient states symptoms have improved. General: Appears in no apparent jp6 distress, comfortable. Vital Signs: 09/29 21:05 BP 137 / 73; Pulse 124; Resp 18 S; Temp 100.3(O); Pulse Ox 95% on R/A; Weight 56.7 kg rn1 (R); Height 5 ft. 4 in. (162.56 cm) (R); Pain 3/10; 21:22 BP 156 / 73 (auto/); jp6 21:23 Pulse 117 MON; Pulse Ox 95% ; jp6 22:23 Pulse 103 MON; Pulse Ox 97% ; jp6 23:22 BP 146 / 73 (auto/); jp6 23:22 Pulse 98 MON; Pulse Ox 95% ; jp6 23:30 BP 141 / 70 (auto/); jp6 23:30 Pulse 101 MON; Pulse Ox 94% ; jp6 09/30 00:00 BP 151 / 72 (auto/); jp6 00:00 Pulse 101 MON; Pulse Ox 95% ; jp6 00:30 Pulse 97 MON; Pulse Ox 94% ; jp6 00:30 Temp 100(TE); jp6 09/29 21:05 Body Mass Index 21.46 (56.70 kg, 162.56 cm) rn1 Vitals: 09/29 21:05 Log In Time: September 29, 2016 at 21:05. gr2 ED Course: 21:05 Patient visited by Svitlana Azevedo. gr2 21:05 Matthew Murphy PA is Private Physician. gr2 21:05 Patient moved to Waiting gr2 21:07 Patient visited by Svitlana Azevedo. gr2 21:07 Patient moved to Pre RCE gr2 21:10 Triage Initiated ttb 21:14 Patient moved to 1 jmb 21:15 Leonora Matt,RN is Primary Nurse. jp6 21:20 Ricky Barraza DO is Attending Physician. cs11 21:21 Patient visited by Ricky Barraza DO. cs11 22:10 Lactic Acid (Spicer tube on ice) Sent. ls3 22:10 Thyroid Profile Sent. ls3 22:11 Patient visited by Ally Barraza PCA. ls3 22:11 Creatine Phosphokinase Sent. ls3 22:11 MED Profile Sent. ls3 22:11 CBC with Diff Sent. ls3 22:11 -Blood Culture Sent. ls3 22:11 Labs drawn. (by ED staff). Sent per order to lab. ls3 22:17 -Influenza A&B Rapid Antigen - Nose Sent. jp6 22:23 The patient / caregiver is instructed regarding the plan of care and ED course. Cardiac jp6 monitor on. Pulse ox on. NIBP on. Warm blanket given. 22:23 Inserted saline lock: 20 gauge in left forearm and blood collected. No procedures done jp6 that require assistance. 22:24 [facility] Payment Agreement was scanned into [employer] and attached to record. zo 22:49 Patient visited by Emili Fung RN. sls1 22:49 Notified attending ED physician of Critical lab value. sls1 22:54 Urine Culture Sent. ls3 22:54 Urinalysis Sent. ls3 22:54 Urine collected. Clean catch specimen. Urine specimen sent to lab. ls3 23:08 Patient visited by Bruna Roberts, Water Main Inspector. jlm 23:08 BLOOD CULTURES Sent. jlm 23:23 Patient visited by Bruna Roberts, Water Main Inspector. jlm 23:41 Delmy Taylor imaging administrator. ys2 23:49 Chest, 2 View (pa\E\lat) Returned. EDMS 23:55 Matthew Murphy PA is Referral Physician. cs11 09/30 00:46 Discontinued lock bleeding controlled, pressure dressing applied, No redness/swelling jp6 at site. 07:59 T-Sheet-- Draft Copy was scanned into [employer] and attached to record. gb Administered Medications: 09/29 22:16 Drug: NS 0.9% 500 ml [sodium chloride 0.9 % intravenous solution] Route: IV; Rate: jp6 bolus; Site: left forearm; 22:17 Drug: Acetaminophen 650 mg [acetaminophen 325 mg tablet (2 tabs)] Route: PO; jp6 22:17 Drug: Metoclopramide 10 mg [metoclopramide 5 mg/mL injection solution] Route: IV; Rate: jp6 40 mg/hr; Infused Over: 15 mins; Site: left forearm; 23:15 Drug: NS 0.9% 500 ml [sodium chloride 0.9 % intravenous solution] Route: IV; Rate: jp6 bolus; Site: left antecubital; 23:48 Drug: cefTRIAXone 1 grams [ceftriaxone 1 gram solution for injection] Route: IVPB; jp6 Infused Over: 30 mins; Site: left antecubital; Point of Care Testing: Blood Glucose: 21:12 Blood Glucose: 219 mg/dL; [facility] Ranges: Order Results: Lab Order: Fingerstick Blood Sugar; SPEC'M 09/29/16 21:09 Test: BEDSIDE GLUCOSE; Value: 219; Range: 83-110; Abnormal: Above high normal; Units: MG/DL; Status: F Lab Order: -Influenza A&B Rapid Antigen - Nose; SPEC'M 09/29/16 22:11 Test: INFLUENZA A RAPID SCR by ICA; Value: INFLUENZA A RESULTS NEGATIVE; Status: F Test: INFLUENZA A RAPID SCR by ICA; Value: Comments:; Status: F Test: INFLUENZA B RAPID SCR by ICA; Value: INFLUENZA B RESULTS NEGATIVE; Status: F Test Note: ; The Influenza test is a direct rapid immunoassay for the qualitative detection of Influenza viral antigen. Cell culture (Viral Culture) testing should be considered to confirm NEGATIVE results and to assist in detecting other viruses that can provide similar clinical symptoms. Please contact the lab within 24 hours ([phone]) if confirmatory testing is desired. Lab Order: CBC with Diff; SPEC'M 09/29/16 22:06 Test: WHITE BLOOD COUNT; Value: 11.5; Range: 4.0-10.0; Abnormal: Above high normal; Units: K/mm3; Status: F Test: RED BLOOD COUNT; Value: 4.24; Range: 4.30-6.10; Abnormal: Below low normal; Units: M/mm3; Status: F Test: HEMOGLOBIN; Value: 13.0; Range: 14.0-18.0; Abnormal: Below low normal; Units: g/dl; Status: F Test: HEMATOCRIT; Value: 39.9; Range: 42.0-52.0; Abnormal: Below low normal; Units: %; Status: F Test: MEAN CORPUSCULAR VOLUME; Value: 94.2; Range: 80.0-96.0; Units: fl; Status: F Test: MEAN CORPUSCULAR HEMOGLOBIN; Value: 30.6; Range: 27.0-33.0; Units: pg; Status: F Test: MEAN CORPUSCULAR HGB CONC; Value: 32.5; Range: 32.0-36.5; Units: g/dl; Status: F Test: RED CELL DISTRIBUTION WIDTH; Value: 12.5; Range: 11.5-14.5; Units: %; Status: F Test: PLATELET COUNT, AUTOMATED; Value: 190; Range: 150-450; Units: k/mm3; Status: F Test: NEUTROPHILS %; Value: 80.0; Range: 36.0-66.0; Abnormal: Above high normal; Units: %; Status: F Test: LYMPH %; Value: 11.4; Range: 24.0-44.0; Abnormal: Below low normal; Units: %; Status: F Test: MONO %; Value: 6.2; Range: 0.0-5.0; Abnormal: Above high normal; Units: %; Status: F Test: EOS %; Value: 0.6; Range: 0.0-3.0; Units: %; Status: F Test: BASO %; Value: 0.4; Range: 0.0-1.0; Units: %; Status: F Test: LARGE UNSTAINED CELL %; Value: 1.3; Range: 0.0-4.0; Units: %; Status: F Test: NEUTROPHILS #; Value: 9.2; Range: 1.8-7.7; Abnormal: Above high normal; Units: K/mm3; Status: F Test: LYMPH #; Value: 1.3; Range: 1.5-4.5; Abnormal: Below low normal; Units: K/mm3; Status: F Test: MONO #; Value: 0.7; Range: 0.0-0.8; Units: K/mm3; Status: F Test: EOS #; Value: 0.1; Range: 0.0-0.50; Units: K/mm3; Status: F Test: BASO #; Value: 0.0; Range: 0.0-0.2; Units: K/mm3; Status: F Test: LARGE UNSTAINED CELL #; Value: 0.2; Range: 0.0-0.4; Units: K/mm3; Status: F Lab Order: MED Profile; SPEC'M 09/29/16 22:06 Test: GLUCOSE, FASTING; Value: 170; Range: 83-110; Abnormal: Above high normal; Units: MG/DL; Status: F Test: BLOOD UREA NITROGEN; Value: 13; Range: 7-18; Units: MG/DL; Status: F Test: CREATININE FOR GFR; Value: 1.52; Range: 0.70-1.30; Abnormal: Above high normal; Units: MG/DL; Status: F Test: GLOMERULAR FILTRATION RATE; Value: 48.0; Range: >42; Status: F Test: SODIUM LEVEL; Value: 143; Range: 136-145; Units: MEQ/L; Status: F Test: POTASSIUM SERUM; Value: 5.1; Range: 3.5-5.1; Units: MEQ/L; Status: F Test: CHLORIDE LEVEL; Value: 109; Range: 98-107; Abnormal: Above high normal; Units: MEQ/L; Status: F Test: CARBON DIOXIDE LEVEL; Value: 24; Range: 21-32; Units: MEQ/L; Status: F Test: ANION GAP; Value: 10; Range: 8-16; Units: MEQ/L; Status: F Test: CALCIUM LEVEL; Value: 8.4; Range: 8.8-10.2; Abnormal: Below low normal; Units: MG/DL; Status: F Test Note: ; Units are mL/min/1.73 m2 Chronic Kidney Disease Staging per NKF: Stage I & II GFR >=60 Normal to Mildly Decreased Stage III GFR 30-59 Moderately Decreased Stage IV GFR 15-29 Severely Decreased Stage V GFR <15 Very Little GFR Left ESRD GFR <15 on BEAM [facility]YER Lab Order: -Blood Culture; SPEC'M 09/29/16 22:06 Test: BLOOD CULTURE; Value: No growth after 24 hours . All specimens observed; Status: F Test: BLOOD CULTURE; Value: for 5 days. Results final at that time.; Status: F Test: BLOOD CULTURE; Value: No Growth after 48 hours. All Specimens observed; Status: F Test: BLOOD CULTURE; Value: for 7 days. Results final at that time.; Status: F Lab Order: Lactic Acid (Spicer tube on ice); SPECM 09/29/16 22:07 Test: LACTIC ACID LEVEL, LACTATE; Value: 3.4; Range: 0.4-2.0; Abnormal: Above upper panic limits; Units: MMOL/L; Status: F Lab Order: Thyroid Profile; SPECM 09/29/16 22:06 Test: T UPTAKE; Value: 33; Range: 33-40; Units: %; Status: F Test: THYROXINE (T4); Value: 6.9; Range: 4.5-12.0; Units: UG/DL; Status: F Test: FREE THYROXINE INDEX; Value: 2.3; Range: 1.4-3.8; Units: %; Status: F Test: THYROID STIMULATING HORMONE; Value: 3.830; Range: 0.358-3.740; Abnormal: Above high normal; Units: uIU/ML; Status: F Lab Order: Urinalysis; SPECM 09/29/16 22:52 Test: APPEARANCE, URINE; Value: CLOUDY; Range: CLEAR; Abnormal: Above high normal; Status: F Test: COLOR, URINE; Value: YELLOW; Range: YELLOW; Status: F Test: PH,URINE; Value: 5.0; Range: 5.0-9.0; Units: UNITS; Status: F Test: SPECIFIC GRAVITY URINE AUTO; Value: 1.023; Range: 1.002-1.035; Status: F Test: PROTEIN, URINE AUTO; Value: NEGATIVE; Range: NEGATIVE; Units: mg/dL; Status: F Test: GLUCOSE, URINE (UA) AUTO; Value: 3+; Range: NEGATIVE; Abnormal: Above high normal; Units: mg/dL; Status: F Test: KETONE, URINE AUTO; Value: NEGATIVE; Range: NEGATIVE; Units: mg/dL; Status: F Test: UROBILINOGEN, URINE AUTO; Value: 0.2; Range: 0.0-2.0; Units: mg/dL; Status: F Test: BILIRUBIN, URINE AUTO; Value: NEGATIVE; Range: NEGATIVE; Status: F Test: NITRITE, URINE AUTO; Value: POSITIVE; Range: NEGATIVE; Status: F Test: LEUKOCYTE ESTERASE, URINE AUTO; Value: 2+; Range: NEGATIVE; Abnormal: Above high normal; Status: F Test: BLOOD, URINE BLOOD; Value: 1+; Range: NEGATIVE; Abnormal: Above high normal; Status: F Test: WBC, URINE AUTO; Value: TNTC; Range: 0-3; Abnormal: Above high normal; Units: /HPF; Status: F Test: RBC, URINE AUTO; Value: 10; Range: 0-3; Abnormal: Above high normal; Units: /HPF; Status: F Test: BACTERIA, URINE AUTO; Value: 2+; Range: NEGATIVE; Abnormal: Above high normal; Status: F Test: SQUAMOUS EPITHELIAL CELL UR AU; Value: 1; Range: 0-6; Units: /HPF; Status: F Test: MUCUS, URINE; Value: SMALL; Range: NEGATIVE; Status: F Test: HYALINE CAST, URINE AUTO; Value: 0; Range: 0-1; Units: /LPF; Status: F Lab Order: Urine Culture; SPEC'M 09/29/16 22:06 Test: URINE CULTURE; Value: ORGANISM 1: KLEBSIELLA PNEUMONIAE; Status: F Test: URINE CULTURE; Value: KLEBSIELLA PNEUMONIAE; Status: F Test: URINE CULTURE; Value: COLONY COUNT CFU/ml >100,000; Status: F Test: URINE CULTURE; Value: GRAM NEG SENSI - VITEK 80; Status: F Test: URINE CULTURE; Value: Method: VIT2; Status: F Test: URINE CULTURE; Value: EXTD BRD SPCTRM BETA LACTAMASE -; Status: F Test: URINE CULTURE; Value: TRIMETHOPRIM/SULFAMETHOXAZOLE <=20 S; Status: F Test: URINE CULTURE; Value: AMPICILLIN >=32 R; Status: F Test: URINE CULTURE; Value: GENTAMICIN <=1 S; Status: F Test: URINE CULTURE; Value: NITROFURANTOIN 64 I; Status: F Test: URINE CULTURE; Value: CEFAZOLIN <=4 S; Status: F Test: URINE CULTURE; Value: LEVOFLOXACIN <=0.12 S; Status: F Test: URINE CULTURE; Value: TOBRAMYCIN <=1 S; Status: F Test: URINE CULTURE; Value: CEFTRIAXONE <=1 S; Status: F Test: URINE CULTURE; Value: CEFTAZIDIME <=1 S; Status: F Test: URINE CULTURE; Value: AMPICILLIN/SULBACTAM 4 S; Status: F Test: URINE CULTURE; Value: PIPERACILLIN/TAZOBACTAM <=4 S; Status: F Test: URINE CULTURE; Value: AZTREONAM <=1 S; Status: F Test: URINE CULTURE; Value: ERTAPENEM <=0.5 S; Status: F Test: URINE CULTURE; Value: MEROPENEM <=0.25 S; Status: F Test: URINE CULTURE; Value: TIGECYCLINE 1 S; Status: F Test: URINE CULTURE; Value: CEFEPIME <=1 S; Status: F Lab Order: Creatine Phosphokinase; SPEC'M 09/29/16 22:06 Test: CPK CREATINE PHOSPHOKINASE; Value: 78; Range: 39-308; Units: U/L; Status: F Lab Order: BLOOD CULTURES; SPEC'M 09/29/16 23:07 Test: BLOOD CULTURE; Value: No growth after 24 hours . All specimens observed; Status: F Test: BLOOD CULTURE; Value: for 5 days. Results final at that time.; Status: F Test: BLOOD CULTURE; Value: No Growth after 48 hours. All Specimens observed; Status: F Test: BLOOD CULTURE; Value: for 7 days. Results final at that time.; Status: F Radiology Order: Chest, 2 View (pa\E\lat) Test: Chest, 2 View (pa\E\lat) REASON FOR EXAMINATION: Cough; Clinical: Cough.; ; Technique: PA and lateral.; ; Comparison: 09/27/2016, 04/17/2013.; ; Findings:; Mediastinum and cardiac silhouette are normal. Lung michael demonstrate chronic; changes primarily involving the left base/lingula. No obvious acute; consolidation effusion or pneumothorax is appreciated. However, subtle; superimposed left basilar atelectasis cannot definitively be excluded. Skeletal; structures demonstrate age-related degenerative changes and evidence for prior; infarction involving the right shoulder.; ; Impression:; Chronic stable-appearing changes.; Cannot exclude subtle superimposed left basilar atelectasis.; ; ; Signed by; Sreekanth Perez MD 09/29/2016 10:59 P; Outcome: 23:55 Discharge ordered by Provider. cs11 09/30 00:30 Discharge Assessment: Patient awake, alert and oriented x 3. No cognitive and/or jp6 functional deficits noted. Patient verbalized understanding of disposition instructions. patient administered narcotics - no. The following High Risk Discharge criteria are identified: None. Condition: improved. Discharge instructions given to patient, friend, Instructed on discharge instructions, follow up and referral plans. medication usage, Demonstrated understanding of instructions, medications, Pt was receptive of discharge instructions/ teaching. Prescriptions given X 1. No special radiology studies were completed. Property sent home with patient. 00:46 Patient left the ED. jp6 Addendum: 10/02/2016 08:07 Narrative: Urine culture reviewed ,pt tolerated well. [facility] Signatures: Dispatcher [employer] EDMS Xuan Stanley, RN RN [facility] Elizabeth Dodge, Reg Reg gb Bren Lord Shannon, RN RN sls1 Ricky Barraza, DO cs11 Paty Walton, RN RN ttSvitlana Mckee gr2 Rayshawn Pagan,RN RN Bruna Bond, Water Main Inspector Unit jlEdouard Denson rn1 Ally Barraza, APRICOT WASHER APRICOT WASHER ls3 Delmy Taylor ys2 Leonora Matt,RN RN jp6 Corrections: (The following items were deleted from the chart) 09/29 21:26 21:05 BP 137 / 73; Pulse 124bpm; Resp 18bpm; Spontaneous; Pulse Ox 95% RA; Temp 100.3F rn1 Oral; 56.7 kg Reported; Height 5 ft. 9 in. Reported; BMI: 18.4; Pain 3/10; gr2 Chart Complete MTDD
[2016-10-06] MEDS ORDERED: GLIM2TAB PO (12:47)
== END 2016-09-30 00:46 | disposition home or self-care (01) ==
LOC: M ED 21:03
DX: N39.0 Urinary tract infection, site not specified (principal); E86.0 Dehydration; E11.9 Type 2 diabetes mellitus without complications; N40.1 Benign prostatic hyperplasia with lower urinary tract symptoms; Z79.899 Other long term (current) drug therapy
CPT/HCPCS: 36415; 71020; 80048; 81001; 82550; 83605; 84436; 84443; 84479; 85025; 87040; 87088; 87186; 87804; 96374; 96375; 99284; J0696; J2765

== ENCOUNTER → 2016-10-10 | Day surgery (SDC) | payer MEDICARE ==
--- NOTE | 2016-10-09 10:40 | HPE ---
DATE OF ADMISSION: 10/10/2016 ROOM: Operating room. HISTORY AND CHIEF COMPLAINT: Mr. Sharma is a 76-year-old male who has had a long history of watering of both eyes. This has progressively gotten worse. 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 The patient is being admitted to have punctoplasty, lacrimal probing, spindle excision and everting suture of both lower eyelids under local anesthetic with sedation. PAST OCULAR HISTORY: Please see the history of present illness, primary open angular glaucoma both eyes, dry eye syndrome of both eyes, previous cataract surgery of the left eye, senile cataract right eye, hypertensive retinopathy of both eyes, diabetes mellitus type 2 with no evidence of diabetic retinopathy, previous trabeculectomy of the left eye. PAST MEDICAL HISTORY/PREOPERATIVE MEDICAL EVALUATION/ASSESSMENT: Please see the report by Dr. Navin Deng. 1. Diabetes mellitus type 2. 2. Psoriasis. 3. Psoriatic arthritis. 4. Hypertension. 5. Coronary artery disease. 6. Alcohol abuse. 7. Hyperlipidemia. 8. Mental retardation. 9. Vitamin D deficiency. 10. Vitamin B12 deficiency. MEDICATIONS: Please refer to the report by Dr. Navin Deng. - ergocalciferol - Travatan Z eye drops - Azopt eye drops - Alphagan P eye drops - Simvastatin - folic acid - metformin - meloxicam - Lisinopril - vitamin B1 - Flomax - glimepiride - Drisdol - clobetasol shampoo ALLERGIES: No known drug allergies noted. FAMILY HISTORY: Noncontributory with respect to eye disease. SOCIAL HISTORY: Previous smoker. Uses alcohol. PHYSICAL EXAMINATION: Vision with current prescription: Right eye: No light perception. Left eye: 20/25 -1. Intraocular pressure by Goldmann tonometry: Both eyes: 12 mmHg. Pupils: Both eyes: Normal and reactive. Extraocular eye movements: Both eyes : Full. External examination: Both eyes: Involutional dermatochalasis of upper and lower eyelids. Senile ectropion lower eyelids of both eyes. Punctal eversion and stenosis of lower eyelids of both eyes. Tear lakes :Both eyes: Increased. Slit lamp examination: Cornea: Both eyes: 1+ superficial punctate keratitis. Anterior chamber: Both eyes: Normal. Lens: Right eye: 2.5+ nuclear sclerosis. 1.5+ posterior subcapsular cataract. Left eye: PCIOL in good position. Trabeculectomy left eye: good bleb. ASSESSMENT: 1. 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 2. Senile ectropion lower eyelid, both eyes. PLAN: I discussed the findings with Toy and his caregiver. I explained to them that due to aging the tendons of the lower eyelids are not supporting the eyelids against the eyeball and the openings, called the punctum, have stenosed or blocked, become everted, which is causing the tears not to collect into the drainage system and therefore he has constant watering. I recommended punctoplasty, lacrimal probing, spindle excision and everting suture of both lower eyelids to reposition the punctum and open the punctum to allow the tears to collect into the tear drainage system, which will decrease the symptoms of watering. I discussed the procedure, benefit, expected outcomes, risk and alternatives to the surgery. I mentioned that the risk of surgery includes but is not limited to surgery is not guaranteed, bleeding, infection, inflammation, scarring, recurrence, injury to the globe or the orbit causing impaired vision or impaired eye movement. Mr. Sharma elected to have this said surgery performed. I obtained an informed consent. I advised them to stop any aspirin type products and nonsteroidal antiinflammatory medications one week preoperatively. Dr. Deng will recommend his other preoperative and postoperative medications. DARLINE
[~2016-10-10] VITALS: Ht 157.5 cm; Wt 56.7 kg
[~2016-10-10] MED LIST changes: +CIPROFLOXACIN OPHTH 0.3% OINTMENT As Ordered ONE; +D5W/0.2% SODIUM CHLORIDE 250 ML IV SCH; +GLIM2TAB PO; +LEVOBUNOLOL 0.5% As Ordered ONE; +LIDOCAINE 2% W/EPIN INJ 20ML **PRES FREE As Ordered ONE; +MIDAZOLAM INJ 2 MG/2 ML VIAL (J2250) As Ordered ONE; +POVIDONE-IODINE 5% OPHTH PREP SOL 30ML As Ordered ONE; +PROPOFOL 200 MG/20 ML VIAL As Ordered ONE; +TOBRADEX OPHTH OINT 3.5 GM As Ordered ONE; +ceFAZolin SOD 1 GM in D5W MINI-BAG PLUS 50 ML IV ONE; +dexameTHASONE 4 MG/ML 1ML VIAL (J1100) As Ordered ONE; +dexameTHASONE 4 MG/ML 1ML VIAL (J1100) IV ONE; +fentaNYL 100 MCG/2 ML INJECTION (J3010) As Ordered ONE
--- NOTE | 2016-10-10 08:45 | RO ---
DATE OF PROCEDURE: 10/10/2016 PREOPERATIVE DIAGNOSES: 1. Senile ectropion, lower eyelid, both eyes. 2. Punctal stenosis and punctal eversion, lower eyelid, both eyes. POSTOPERATIVE DIAGNOSES: 1. Senile ectropion, lower eyelid, both eyes. 2. Punctal stenosis and punctal eversion, lower eyelid, both eyes. OPERATIVE PROCEDURE: 1. Punctoplasty, lower eyelid, both eyes. 2. Lacrimal probing and irrigation, lower eyelid, both eyes. 3. Spindle excision and inverting suture, lower eyelid, both eyes. SURGEON: Toy Boone MD POULTRY VACCINATOR: ANESTHESIA: Local with monitored sedation. OPERATIVE PROCEDURE DETAILS: The patient was brought into the operating room and positioned appropriately. After adequate sedation, local anesthetic consisting of Xylocaine 2% with epinephrine 1:200,000, 1 mL was injected subconjunctival and subcutaneously in the medial aspect of both lower eyelids. The full face was prepped with Betadine and draped in the usual sterile manner. The right lower eyelid was everted and the punctum was noted to be 100% obstructed. The punctal dilator was used to dilate up the punctum. A 00 lacrimal Granda probe was inserted into the inferior punctum, vertical canaliculus, horizontal canaliculus until it reached the base lacrimal sac. A punctoplasty was performed. Bipolar cautery was used to control any fine bleeding. A wedge of tarsal conjunctival tissue was excised from below the inferior punctum of the right lower lid. A double armed #6-0 Vicryl suture in a vertical mattress fashion was used to invert the right inferior punctum. The exact same procedure was performed on the left lower eyelid, left inferior punctum and left lacrimal system. The probing of both sides showed the inferior canaliculus to be fully patent. There are no complications during the procedure. A combination of Ciloxan ophthalmic ointment mixed with TobraDex ophthalmic ointment was instilled into both eyes. The patient left the recovery room in good condition. DARLINE
[2016-10-10 09:45] VITALS: BP 180/71
== END | disposition home or self-care (01) ==
LOC: M SDC 05:45
PROVIDERS: ATTEND Ophthalmology
DX: H02.135 Senile ectropion of left lower eyelid (principal); H04.563 Stenosis of bilateral lacrimal punctum; H04.523 Eversion of bilateral lacrimal punctum; E11.9 Type 2 diabetes mellitus without complications; L40.59 Other psoriatic arthropathy; I10 Essential (primary) hypertension; I25.10 Atherosclerotic heart disease of native coronary artery without angina pectoris; I25.2 Old myocardial infarction; F10.10 Alcohol abuse, uncomplicated; E78.4 Other hyperlipidemia; F70 Mild intellectual disabilities; H40.9 Unspecified glaucoma; E55.9 Vitamin D deficiency, unspecified; H54.42 Blindness, left eye, normal vision right eye; E53.9 Vitamin B deficiency, unspecified; M15.0 Primary generalized (osteo)arthritis; Z79.899 Other long term (current) drug therapy; Z87.891 Personal history of nicotine dependence; Z96.1 Presence of intraocular lens
CPT/HCPCS: 67916; 68801; J0690; J1100; J2250; J3010

== ENCOUNTER → 2016-12-26 | Outpatient (CLI) | payer MEDICARE ==
[~2016-12-26] MED LIST changes: -CIPROFLOXACIN OPHTH 0.3% OINTMENT As Ordered ONE; -D5W/0.2% SODIUM CHLORIDE 250 ML IV SCH; -LEVOBUNOLOL 0.5% As Ordered ONE; -LIDOCAINE 2% W/EPIN INJ 20ML **PRES FREE As Ordered ONE; -MIDAZOLAM INJ 2 MG/2 ML VIAL (J2250) As Ordered ONE; -POVIDONE-IODINE 5% OPHTH PREP SOL 30ML As Ordered ONE; -PROPOFOL 200 MG/20 ML VIAL As Ordered ONE; -TOBRADEX OPHTH OINT 3.5 GM As Ordered ONE; -ceFAZolin SOD 1 GM in D5W MINI-BAG PLUS 50 ML IV ONE; -dexameTHASONE 4 MG/ML 1ML VIAL (J1100) As Ordered ONE; -dexameTHASONE 4 MG/ML 1ML VIAL (J1100) IV ONE; -fentaNYL 100 MCG/2 ML INJECTION (J3010) As Ordered ONE
[2016-12-26 12:35] LABS: ALBUMIN 3.3 GM/DL (3.2-5.2); ALKALINE PHOSPHATASE 80 U/L (45-117); ALT/SGPT 22 U/L (12-78); ANION GAP 6 MEQ/L (8-16); AST/SGOT 27 U/L (15-37); BILIRUBIN,TOTAL 0.4 MG/DL (0.2-1.0); BLOOD UREA NITROGEN 15 MG/DL (7-18); CALCIUM LEVEL 8.9 MG/DL (8.8-10.2); CARBON DIOXIDE LEVEL 29 MEQ/L (21-32); CHLORIDE LEVEL 107 MEQ/L (98-107); CHOLESTEROL LEVEL 232 MG/DL (<200); CREATININE FOR GFR 1.55 MG/DL (0.70-1.30); GLOMERULAR FILTRATION RATE 46.9 (>42); GLUCOSE, FASTING 95 MG/DL (83-110); POTASSIUM SERUM 5.1 MEQ/L (3.5-5.1); SODIUM LEVEL 142 MEQ/L (136-145); TOTAL PROTEIN 6.6 GM/DL (6.4-8.2); TRIGLYCERIDES LEVEL 449 MG/DL (<150)
== END ==
LOC: M WUC 09:04
PROVIDERS: ATTEND Nurse Practitioner Family
DX: E78.4 Other hyperlipidemia (principal)

== ENCOUNTER → 2018-05-01 | Outpatient (CLI) | payer MEDICARE ==
[2018-05-01 16:19] LABS: BASO # 0.1 10^3/uL (0.0-0.2); BASO % 0.7 % (0.0-1.0); EOS # 0.1 10^3/uL (0.0-0.50); EOS % 1.8 % (0.0-3.0); HEMATOCRIT 42.5 % (42.0-52.0); IMMATURE GRANULOCYTE % 0.3 % (0-3.0); LYMPH # 1.6 10^3/uL (1.5-4.5); LYMPH % 23.6 % (24.0-44.0); MEAN CORPUSCULAR HEMOGLOBIN 30.3 pg (27.0-33.0); MEAN CORPUSCULAR HGB CONC 32.9 g/dl (32.0-36.5); MONO # 0.5 10^3/uL (0.0-0.8); NEUTROPHILS # 4.4 10^3/uL (1.8-7.7); NEUTROPHILS % 65.6 % (36.0-66.0); PLATELET COUNT, AUTOMATED 217 10^3/uL (150-450); RED BLOOD COUNT 4.62 10^6/uL (4.30-6.10); RED CELL DISTRIBUTION WIDTH 14.7 % (11.5-14.5); WHITE BLOOD COUNT 6.8 10^3/uL (4.0-10.0)
[2018-05-01 16:27] LABS: ALBUMIN 3.2 GM/DL (3.2-5.2); ALBUMIN/GLOBULIN RATIO 0.86 (1.00-1.93); ALKALINE PHOSPHATASE 102 U/L (45-117); ALT/SGPT 27 U/L (12-78); ANION GAP 10 MEQ/L (8-16); AST/SGOT 33 U/L (7-37); BILIRUBIN,TOTAL 0.8 MG/DL (0.2-1.0); BLOOD UREA NITROGEN 14 MG/DL (7-18); CALCIUM LEVEL 8.6 MG/DL (8.8-10.2); CARBON DIOXIDE LEVEL 27 MEQ/L (21-32); CHLORIDE LEVEL 103 MEQ/L (98-107); CHOLESTEROL LEVEL 248 MG/DL (<200); CHOLESTEROL RISK RATIO 4.769 (<5); CREATININE FOR GFR 1.61 MG/DL (0.70-1.30); GLOMERULAR FILTRATION RATE 44.8 (>42); GLUCOSE, FASTING 188 MG/DL (70-100); HDL CHOLESTEROL 52 MG/DL (>40); NON-HDL-C 196 MG/DL; SODIUM LEVEL 140 MEQ/L (136-145); TOTAL PROTEIN 6.9 GM/DL (6.4-8.2); TRIGLYCERIDES LEVEL 477 MG/DL (<150)
[2018-05-01 18:05] LABS: TOTAL 25(OH) VITAMIN D 21.4 NG/ML (30.0-100.0); VITAMIN B12 LEVEL 138 PG/ML (247-911)
== END ==
LOC: M WUC 14:33
DX: E11.9 Type 2 diabetes mellitus without complications (principal); E78.4 Other hyperlipidemia; E55.9 Vitamin D deficiency, unspecified
CPT/HCPCS: 82607

== ENCOUNTER → 2018-05-09 | Outpatient (CLI) | payer MEDICARE ==
[~2018-05-09] MED LIST changes: -/AMLO25TA PO; -/TAMS4CA PO; -ALPH0.1S OU; -FOLI1TAB86 PO; +GASTROGRAFIN SOLUTION 30ML (Q9963) As Ordered; -GLIM2TAB PO; -GLIM4TAB PO; +ISOVUE-370 76% 100ML VIAL (Q9967) As Ordered; -LEVO500T PO; -METF1000 PO; -SIMV40TA2 PO; -TYLE325T5 PO; -VITA100T20 PO; -VITA100T60 PO; -VITMTA PO; -ZEST20TA8 PO; -vitamin d PO
== END ==
LOC: M RAD 11:43
DX: K40.90 Unilateral inguinal hernia, without obstruction or gangrene, not specified as recurrent (principal)
CPT/HCPCS: Q9963

== ENCOUNTER 2018-07-18 13:14 | Emergency (ER) | payer MEDICARE ==
[2018-07-18 14:58] LABS: HEMOGLOBIN 11.5 g/dl (13.5-17.5); MEAN CORPUSCULAR HEMOGLOBIN 30.3 pg (27.0-33.0); MEAN CORPUSCULAR HGB CONC 32.9 g/dl (32.0-36.5); MEAN CORPUSCULAR VOLUME 92.1 fl (80.0-96.0); PLATELET COUNT, AUTOMATED 140 10^3/uL (150-450); RED CELL DISTRIBUTION WIDTH 15.3 % (11.5-14.5); WHITE BLOOD COUNT 6.5 10^3/uL (4.0-10.0)
[2018-07-18] MEDS: LABETALOL HCL 100 MG/20 ML VIAL IV (15:01)
[2018-07-18] MEDS: NS 1,000 ML IV (15:02)
[2018-07-18] MEDS: NORCO, ANEXSIA 5/325MG TABLET (HYDROcodone/ACETAMINOPHEN) PO (15:02)
[2018-07-18 15:17] LABS: ANION GAP 8 MEQ/L (8-16); BLOOD UREA NITROGEN 12 MG/DL (7-18); CALCIUM LEVEL 8.1 MG/DL (8.8-10.2); CARBON DIOXIDE LEVEL 28 MEQ/L (21-32); CHLORIDE LEVEL 107 MEQ/L (98-107); CREATININE FOR GFR 1.31 MG/DL (0.70-1.30); GLOMERULAR FILTRATION RATE 56.6 (>42); GLUCOSE, FASTING 202 MG/DL (70-100); POTASSIUM SERUM 4.5 MEQ/L (3.5-5.1); SODIUM LEVEL 143 MEQ/L (136-145)
[2018-07-18 15:19] LABS: ETHYL ALCOHOL (ETHANOL) < 0.003 % (0.000-0.010)
[2018-07-18 15:20] LABS: CPK CREATINE PHOSPHOKINASE 45 U/L (39-308); MB/CK RELATIVE INDEX 4.89 (< OR =4); TROPONIN I 0.02 NG/ML (< 0.10)
[2018-07-18 16:27] LABS: KETONE, URINE AUTO RFX NEGATIVE (NEGATIVE); NITRITE, URINE AUTO RFX NEGATIVE (NEGATIVE); RBC, URINE AUTO RFX 4 /HPF (0-3); SPECIFIC GRAVITY UR AUTO RFX 1.013 (1.002-1.035); SQUAM EPITHELIAL CELL UR AURFX 1 /HPF (0-6); WBC, URINE AUTO RFX 9 /HPF (0-3)
[2018-07-18 16:31] LABS: LEUKOCYTE ESTERASE UR AUTO RFX 2+ (NEGATIVE)
[2018-07-18] MEDS: CEPHALEXIN 500 MG CAP PO (17:16)
== END 2018-07-18 18:12 | disposition home or self-care (01) ==
LOC: M ED 13:14
DX: S22.088A Other fracture of T11-T12 vertebra, initial encounter for closed fracture (principal); Z87.81 Personal history of (healed) traumatic fracture; N39.0 Urinary tract infection, site not specified; I10 Essential (primary) hypertension; W19.XXXA Unspecified fall, initial encounter; Y92.099 Unspecified place in other non-institutional residence as the place of occurrence of the external cause; Y93.9 Activity, unspecified; Y99.9 Unspecified external cause status; I25.2 Old myocardial infarction; E11.9 Type 2 diabetes mellitus without complications; F10.21 Alcohol dependence, in remission; Z87.891 Personal history of nicotine dependence; Z79.84 Long term (current) use of oral hypoglycemic drugs; Z79.899 Other long term (current) drug therapy
CPT/HCPCS: 72128

== ENCOUNTER 2018-08-04 10:45 | Inpatient (IN) | payer MEDICARE ==
[2018-08-04] MEDS: LISINOPRIL 20 MG TAB PO ×2 (09:00→23:05)
[2018-08-04] MEDS: ONDANSETRON 4MG/2ML VIAL (J2405) IV (11:55)
[2018-08-04] MEDS: MORPHINE 4 MG/ML 1ML VIAL/SYRINGE (J2270) IV (11:56)
[2018-08-04 13:31] LABS: BASO % 0.4 % (0.0-1.0); EOS # 0.1 10^3/uL (0.0-0.50); EOS % 1.4 % (0.0-3.0); HEMATOCRIT 36.5 % (42.0-52.0); HEMOGLOBIN 12.4 g/dl (13.5-17.5); IMMATURE GRANULOCYTE % 0.5 % (0-3.0); LYMPH # 0.9 10^3/uL (1.5-4.5); LYMPH % 9.5 % (24.0-44.0); MEAN CORPUSCULAR VOLUME 91.3 fl (80.0-96.0); MONO # 0.7 10^3/uL (0.0-0.8); MONO % 7.6 % (0.0-5.0); NEUTROPHILS # 7.9 10^3/uL (1.8-7.7); NEUTROPHILS % 80.6 % (36.0-66.0); PLATELET COUNT, AUTOMATED 222 10^3/uL (150-450); RED CELL DISTRIBUTION WIDTH 16.2 % (11.5-14.5); WHITE BLOOD COUNT 9.8 10^3/uL (4.0-10.0)
[2018-08-04 13:44] LABS: INR 1.01; PROTHROMBIN TIME 13.5 SECONDS (12.1-14.4)
[2018-08-04 13:45] LABS: PARTIAL THROMBOPLASTIN TIME 28.5 SECONDS (25.4-37.6)
[2018-08-04] MEDS: HEPARIN SOD (PORCINE) 5000 UNITS/ML VIAL SC ×2 (14:00→21:37)
[2018-08-04 14:01] LABS: ALBUMIN 2.4 GM/DL (3.2-5.2); ALBUMIN/GLOBULIN RATIO 0.86 (1.00-1.93); ALKALINE PHOSPHATASE 183 U/L (45-117); ALT/SGPT 20 U/L (12-78); ANION GAP 9 MEQ/L (8-16); AST/SGOT 33 U/L (7-37); BILIRUBIN,DIRECT 0.2 MG/DL (0.0-0.2); BILIRUBIN,TOTAL 0.4 MG/DL (0.2-1.0); BLOOD UREA NITROGEN 10 MG/DL (7-18); C REACTIVE PROTEIN QUANTITATIV 0.95 MG/DL (0.00-0.30); CALCIUM LEVEL 7.7 MG/DL (8.8-10.2); CARBON DIOXIDE LEVEL 26 MEQ/L (21-32); CHLORIDE LEVEL 106 MEQ/L (98-107); CPK CREATINE PHOSPHOKINASE 37 U/L (39-308); CREATININE FOR GFR 1.15 MG/DL (0.70-1.30); GLOMERULAR FILTRATION RATE > 60.0 (>42); GLUCOSE, FASTING 152 MG/DL (70-100); MB/CK RELATIVE INDEX 7.57 (< OR =4); POTASSIUM SERUM 3.9 MEQ/L (3.5-5.1); SODIUM LEVEL 141 MEQ/L (136-145); TOTAL PROTEIN 5.2 GM/DL (6.4-8.2); TROPONIN I 0.02 NG/ML (< 0.10)
[2018-08-04] MEDS ORDERED: DEXTROSE 50% 50 ML SYRINGE IV (15:00)
[2018-08-04] MEDS ORDERED: GLUCAGON FOR INJ 1 MG VIAL (J1610) SC (15:00)
[2018-08-04] MEDS ORDERED: GLUCOSE 4 GM CHEW TABLET PO (15:00)
[2018-08-04] MEDS ORDERED: NORCO, ANEXSIA 5/325MG TABLET (HYDROcodone/ACETAMINOPHEN) PO (15:15)
[2018-08-04] MEDS: PERCOCET 5MG/325MG TAB PO ×2 (16:36→21:38)
[2018-08-04 16:57] LABS: BEDSIDE GLUCOSE 190 MG/DL (83-110)
[2018-08-04] MEDS: HumaLOG INSULIN (NovoLOG) PER UNIT SC ×2 (17:01→21:00)
[2018-08-04 20:14] LABS: APPEARANCE, URINE CLEAR (CLEAR); BACTERIA, URINE AUTO NEGATIVE (NEGATIVE); BILIRUBIN, URINE AUTO NEGATIVE (NEGATIVE); BLOOD, URINE BLOOD NEGATIVE (NEGATIVE); COLOR, URINE YELLOW (YELLOW); GLUCOSE, URINE (UA) AUTO 2+ mg/dL (NEGATIVE); KETONE, URINE AUTO NEGATIVE (NEGATIVE); LEUKOCYTE ESTERASE, URINE AUTO NEGATIVE (NEGATIVE); NITRITE, URINE AUTO NEGATIVE (NEGATIVE); PROTEIN, URINE AUTO 2+ mg/dL (NEGATIVE); RBC, URINE AUTO 3 /HPF (0-3); SPECIFIC GRAVITY URINE AUTO 1.021 (1.002-1.035); SQUAMOUS EPITHELIAL CELL UR AU 0 /HPF (0-6); WBC, URINE AUTO 1 /HPF (0-3)
[2018-08-04 20:50] LABS: BEDSIDE GLUCOSE 175 MG/DL (83-110)
[2018-08-04] MEDS: LATANOPROST 0.005% OPHTH SOLN 2.5 ML OU (21:37)
[2018-08-04] MEDS: DORZOLAMIDE 2% OPHTH SOLN 10 ML BTL OU (21:37)
[2018-08-04] MEDS: SIMVASTATIN 40 MG TAB PO (21:38)
[2018-08-04 23:00] LABS: MAGNESIUM LEVEL 1.5 MG/DL (1.8-2.4)
[2018-08-04 23:00] LABS: POTASSIUM SERUM 4.2 MEQ/L (3.5-5.1)
[2018-08-04] MEDS: MAG SULF 1GM/100ML (MAG RUN) 1 GM in APPROPRIATE DILUENT 1 EA IV (23:11)
[2018-08-05] MEDS: PERCOCET 5MG/325MG TAB PO ×3 (02:07→22:15)
[2018-08-05] MEDS: ACETAMINOPHEN TAB 650MG DOSE (2X325MG) PO ×2 (04:26→13:37)
[2018-08-05] MEDS: MORPHINE 4 MG/ML 1ML VIAL/SYRINGE (J2270) IV (04:27)
[2018-08-05] MEDS: HEPARIN SOD (PORCINE) 5000 UNITS/ML VIAL SC ×3 (05:15→20:52)
[2018-08-05 06:21] LABS: HEMATOCRIT 34.6 % (42.0-52.0); HEMOGLOBIN 11.5 g/dl (13.5-17.5); MEAN CORPUSCULAR HEMOGLOBIN 30.3 pg (27.0-33.0); MEAN CORPUSCULAR HGB CONC 33.2 g/dl (32.0-36.5); MEAN CORPUSCULAR VOLUME 91.3 fl (80.0-96.0); PLATELET COUNT, AUTOMATED 227 10^3/uL (150-450); RED BLOOD COUNT 3.79 10^6/uL (4.30-6.10); RED CELL DISTRIBUTION WIDTH 16.6 % (11.5-14.5); WHITE BLOOD COUNT 9.5 10^3/uL (4.0-10.0)
[2018-08-05 06:44] LABS: ANION GAP 8 MEQ/L (8-16); BLOOD UREA NITROGEN 12 MG/DL (7-18); CALCIUM LEVEL 8.2 MG/DL (8.8-10.2); CARBON DIOXIDE LEVEL 26 MEQ/L (21-32); CHLORIDE LEVEL 105 MEQ/L (98-107); CREATININE FOR GFR 1.31 MG/DL (0.70-1.30); GLOMERULAR FILTRATION RATE 56.6 (>42); GLUCOSE, FASTING 93 MG/DL (70-100); MAGNESIUM LEVEL 2.1 MG/DL (1.8-2.4); POTASSIUM SERUM 3.8 MEQ/L (3.5-5.1); SODIUM LEVEL 139 MEQ/L (136-145)
[2018-08-05] MEDS: HumaLOG INSULIN (NovoLOG) PER UNIT SC ×4 (07:15→20:46)
[2018-08-05] MEDS: CALCIUM/VITAMIN D 500 MG TAB PO ×2 (09:00→20:52)
[2018-08-05] MEDS: DORZOLAMIDE 2% OPHTH SOLN 10 ML BTL OU ×2 (09:04→20:52)
[2018-08-05] MEDS: LISINOPRIL 20 MG TAB PO (09:04)
[2018-08-05] MEDS: TAMSULOSIN 0.4 MG CAP PO (09:04)
[2018-08-05] MEDS: SERTRALINE HCL 25 MG TABLET PO (09:04)
[2018-08-05] MEDS: MELOXICAM (MOBIC) 7.5 MG TAB PO (09:05)
[2018-08-05] MEDS: PREVNAR 13 VACCINE SYRINGE (CPT CODE:90670) IM (09:06)
[2018-08-05] MEDS: FLUBLOK(EGG FREE)(QUAD)INFLUENZA VACC 0.5ML SYRINGE (90682)18YRS&OLDER IM (09:06)
[2018-08-05] MEDS: NS 1,000 ML IV ×2 (09:15→20:52)
[2018-08-05] MEDS ORDERED: PILL CRUSHER/CUTTER 1 EACH XX (09:45)
[2018-08-05 12:08] LABS: BEDSIDE GLUCOSE 172 MG/DL (83-110)
[2018-08-05 16:34] LABS: BEDSIDE GLUCOSE 184 MG/DL (83-110)
[2018-08-05 20:47] LABS: BEDSIDE GLUCOSE 163 MG/DL (83-110)
[2018-08-05] MEDS: SIMVASTATIN 40 MG TAB PO (20:51)
[2018-08-05] MEDS: LATANOPROST 0.005% OPHTH SOLN 2.5 ML OU (20:52)
[2018-08-06] MEDS: PERCOCET 5MG/325MG TAB PO ×2 (05:13→11:31)
[2018-08-06] MEDS: HEPARIN SOD (PORCINE) 5000 UNITS/ML VIAL SC ×3 (05:13→22:21)
[2018-08-06 06:38] LABS: HEMATOCRIT 31.6 % (42.0-52.0); HEMOGLOBIN 10.3 g/dl (13.5-17.5); MEAN CORPUSCULAR HEMOGLOBIN 30.6 pg (27.0-33.0); MEAN CORPUSCULAR HGB CONC 32.6 g/dl (32.0-36.5); MEAN CORPUSCULAR VOLUME 93.8 fl (80.0-96.0); PLATELET COUNT, AUTOMATED 184 10^3/uL (150-450); RED BLOOD COUNT 3.37 10^6/uL (4.30-6.10); RED CELL DISTRIBUTION WIDTH 16.8 % (11.5-14.5); WHITE BLOOD COUNT 8.4 10^3/uL (4.0-10.0)
[2018-08-06 07:00] LABS: ANION GAP 7 MEQ/L (8-16); BLOOD UREA NITROGEN 14 MG/DL (7-18); CALCIUM LEVEL 7.8 MG/DL (8.8-10.2); CARBON DIOXIDE LEVEL 26 MEQ/L (21-32); CHLORIDE LEVEL 107 MEQ/L (98-107); CREATININE FOR GFR 1.28 MG/DL (0.70-1.30); GLOMERULAR FILTRATION RATE 58.2 (>42); GLUCOSE, FASTING 108 MG/DL (70-100); MAGNESIUM LEVEL 1.8 MG/DL (1.8-2.4); POTASSIUM SERUM 4.1 MEQ/L (3.5-5.1); SODIUM LEVEL 140 MEQ/L (136-145)
[2018-08-06] MEDS: CALCIUM/VITAMIN D 500 MG TAB PO ×2 (08:00→20:29)
[2018-08-06] MEDS: TAMSULOSIN 0.4 MG CAP PO (08:00)
[2018-08-06] MEDS: SERTRALINE HCL 25 MG TABLET PO (08:00)
[2018-08-06] MEDS: HumaLOG INSULIN (NovoLOG) PER UNIT SC ×4 (08:00→20:29)
[2018-08-06] MEDS: LISINOPRIL 20 MG TAB PO (08:00)
[2018-08-06] MEDS: DORZOLAMIDE 2% OPHTH SOLN 10 ML BTL OU ×2 (08:01→20:30)
[2018-08-06] MEDS: NS 1,000 ML IV ×2 (08:01→18:14)
[2018-08-06 10:40] LABS: TOTAL 25(OH) VITAMIN D 25.5 NG/ML (30.0-100.0)
[2018-08-06 11:51] LABS: BEDSIDE GLUCOSE 115 MG/DL (83-110)
[2018-08-06 16:40] LABS: BEDSIDE GLUCOSE 106 MG/DL (83-110)
[2018-08-06] MEDS: SIMVASTATIN 40 MG TAB PO (20:29)
[2018-08-06] MEDS: LATANOPROST 0.005% OPHTH SOLN 2.5 ML OU (20:30)
[2018-08-06 20:31] LABS: BEDSIDE GLUCOSE 144 MG/DL (83-110)
[2018-08-06] MEDS: **hydrALAZINE HCL** 25 MG TAB PO (22:52)
[2018-08-06] MEDS: ACETAMINOPHEN TAB 650MG DOSE (2X325MG) PO (22:52)
[2018-08-07] MEDS: PERCOCET 5MG/325MG TAB PO ×3 (01:41→11:41)
[2018-08-07] MEDS: NS 1,000 ML IV (02:15)
[2018-08-07] MEDS: HEPARIN SOD (PORCINE) 5000 UNITS/ML VIAL SC ×3 (05:44→20:59)
[2018-08-07] MEDS: HumaLOG INSULIN (NovoLOG) PER UNIT SC ×4 (07:30→20:53)
[2018-08-07 07:33] LABS: HEMATOCRIT 28.9 % (42.0-52.0); HEMOGLOBIN 9.5 g/dl (13.5-17.5); MEAN CORPUSCULAR HEMOGLOBIN 31.5 pg (27.0-33.0); MEAN CORPUSCULAR HGB CONC 32.9 g/dl (32.0-36.5); MEAN CORPUSCULAR VOLUME 95.7 fl (80.0-96.0); PLATELET COUNT, AUTOMATED 169 10^3/uL (150-450); RED BLOOD COUNT 3.02 10^6/uL (4.30-6.10); RED CELL DISTRIBUTION WIDTH 17.2 % (11.5-14.5); WHITE BLOOD COUNT 6.6 10^3/uL (4.0-10.0)
[2018-08-07 08:10] LABS: ANION GAP 6 MEQ/L (8-16); BLOOD UREA NITROGEN 12 MG/DL (7-18); CALCIUM LEVEL 7.9 MG/DL (8.8-10.2); CARBON DIOXIDE LEVEL 25 MEQ/L (21-32); CHLORIDE LEVEL 112 MEQ/L (98-107); CREATININE FOR GFR 0.98 MG/DL (0.70-1.30); GLOMERULAR FILTRATION RATE > 60.0 (>42); GLUCOSE, FASTING 95 MG/DL (70-100); MAGNESIUM LEVEL 1.7 MG/DL (1.8-2.4); POTASSIUM SERUM 4.4 MEQ/L (3.5-5.1); SODIUM LEVEL 143 MEQ/L (136-145)
[2018-08-07] MEDS: MAG SULF 1GM/100ML (MAG RUN) 1 GM in APPROPRIATE DILUENT 1 EA IV (09:05)
[2018-08-07] MEDS: ACETAMINOPHEN TAB 650MG DOSE (2X325MG) PO (09:06)
[2018-08-07] MEDS: LISINOPRIL 20 MG TAB PO (09:08)
[2018-08-07] MEDS: CALCIUM/VITAMIN D 500 MG TAB PO ×2 (09:08→21:00)
[2018-08-07] MEDS: TAMSULOSIN 0.4 MG CAP PO (09:08)
[2018-08-07] MEDS: SERTRALINE HCL 25 MG TABLET PO (09:08)
[2018-08-07] MEDS: DORZOLAMIDE 2% OPHTH SOLN 10 ML BTL OU ×2 (09:08→21:00)
[2018-08-07 11:52] LABS: BEDSIDE GLUCOSE 162 MG/DL (83-110)
[2018-08-07 16:55] LABS: BEDSIDE GLUCOSE 116 MG/DL (83-110)
[2018-08-07] MEDS: MOM 30ML SUSPENSION UDC PO (17:34)
[2018-08-07 20:29] LABS: BEDSIDE GLUCOSE 102 MG/DL (83-110)
[2018-08-07] MEDS: SIMVASTATIN 40 MG TAB PO (20:59)
[2018-08-07] MEDS: SENOKOT S TAB PO (21:00)
[2018-08-07] MEDS: LATANOPROST 0.005% OPHTH SOLN 2.5 ML OU (21:00)
[2018-08-08] MEDS: HEPARIN SOD (PORCINE) 5000 UNITS/ML VIAL SC ×3 (05:26→20:58)
[2018-08-08 06:25] LABS: HEMATOCRIT 31.6 % (42.0-52.0); HEMOGLOBIN 10.3 g/dl (13.5-17.5); MEAN CORPUSCULAR HEMOGLOBIN 30.5 pg (27.0-33.0); MEAN CORPUSCULAR HGB CONC 32.6 g/dl (32.0-36.5); MEAN CORPUSCULAR VOLUME 93.5 fl (80.0-96.0); PLATELET COUNT, AUTOMATED 204 10^3/uL (150-450); RED BLOOD COUNT 3.38 10^6/uL (4.30-6.10); RED CELL DISTRIBUTION WIDTH 17.1 % (11.5-14.5); WHITE BLOOD COUNT 8.9 10^3/uL (4.0-10.0)
[2018-08-08 06:31] LABS: ANION GAP 9 MEQ/L (8-16); BLOOD UREA NITROGEN 13 MG/DL (7-18); CALCIUM LEVEL 8.3 MG/DL (8.8-10.2); CARBON DIOXIDE LEVEL 22 MEQ/L (21-32); CHLORIDE LEVEL 108 MEQ/L (98-107); CREATININE FOR GFR 1.08 MG/DL (0.70-1.30); GLOMERULAR FILTRATION RATE > 60.0 (>42); GLUCOSE, FASTING 127 MG/DL (70-100); POTASSIUM SERUM 5.1 MEQ/L (3.5-5.1); SODIUM LEVEL 139 MEQ/L (136-145)
[2018-08-08] MEDS: ACETAMINOPHEN TAB 650MG DOSE (2X325MG) PO (06:49)
[2018-08-08] MEDS: HumaLOG INSULIN (NovoLOG) PER UNIT SC ×4 (07:58→20:31)
[2018-08-08] MEDS: TAMSULOSIN 0.4 MG CAP PO (07:59)
[2018-08-08] MEDS: SERTRALINE HCL 25 MG TABLET PO (07:59)
[2018-08-08] MEDS: D5W/0.45% SODIUM CHLORIDE 1,000 ML IV ×2 (07:59→20:59)
[2018-08-08] MEDS: CALCIUM/VITAMIN D 500 MG TAB PO ×2 (07:59→20:58)
[2018-08-08] MEDS: PERCOCET 5MG/325MG TAB PO ×2 (08:00→20:59)
[2018-08-08] MEDS: SENOKOT S TAB PO ×2 (08:00→20:58)
[2018-08-08] MEDS: LISINOPRIL 20 MG TAB PO (08:02)
[2018-08-08] MEDS: DORZOLAMIDE 2% OPHTH SOLN 10 ML BTL OU ×2 (08:02→20:58)
[2018-08-08 11:51] LABS: BEDSIDE GLUCOSE 150 MG/DL (83-110)
[2018-08-08] MEDS: amLODIPine 5 MG TAB PO (13:51)
[2018-08-08] MEDS: ATORVASTATIN 20 MG TAB PO (13:52)
[2018-08-08 16:56] LABS: BEDSIDE GLUCOSE 191 MG/DL (83-110)
[2018-08-08 18:30] LABS: KETONE, URINE AUTO RFX NEGATIVE (NEGATIVE); NITRITE, URINE AUTO RFX NEGATIVE (NEGATIVE); RBC, URINE AUTO RFX 18 /HPF (0-3); SPECIFIC GRAVITY UR AUTO RFX 1.004 (1.002-1.035); SQUAM EPITHELIAL CELL UR AURFX 0 /HPF (0-6); YEAST LIKE CELL URINE AUTO RFX SMALL
[2018-08-08 18:31] LABS: LEUKOCYTE ESTERASE UR AUTO RFX TRACE (NEGATIVE); WBC, URINE AUTO RFX 14 /HPF (0-3)
[2018-08-08 19:50] LABS: BEDSIDE GLUCOSE 232 MG/DL (83-110)
[2018-08-08] MEDS: LATANOPROST 0.005% OPHTH SOLN 2.5 ML OU (20:58)
[2018-08-09] MEDS: PERCOCET 5MG/325MG TAB PO ×2 (05:37→18:06)
[2018-08-09] MEDS: HEPARIN SOD (PORCINE) 5000 UNITS/ML VIAL SC ×3 (05:38→21:35)
[2018-08-09 06:23] LABS: HEMATOCRIT 32.1 % (42.0-52.0); HEMOGLOBIN 10.6 g/dl (13.5-17.5); MEAN CORPUSCULAR HEMOGLOBIN 30.8 pg (27.0-33.0); MEAN CORPUSCULAR VOLUME 93.3 fl (80.0-96.0); PLATELET COUNT, AUTOMATED 202 10^3/uL (150-450); RED BLOOD COUNT 3.44 10^6/uL (4.30-6.10); RED CELL DISTRIBUTION WIDTH 17.1 % (11.5-14.5); WHITE BLOOD COUNT 8.1 10^3/uL (4.0-10.0)
[2018-08-09 06:41] LABS: ANION GAP 7 MEQ/L (8-16); BLOOD UREA NITROGEN 11 MG/DL (7-18); CALCIUM LEVEL 8.3 MG/DL (8.8-10.2); CARBON DIOXIDE LEVEL 26 MEQ/L (21-32); CHLORIDE LEVEL 108 MEQ/L (98-107); CREATININE FOR GFR 1.16 MG/DL (0.70-1.30); GLOMERULAR FILTRATION RATE > 60.0 (>42); GLUCOSE, FASTING 158 MG/DL (70-100); MAGNESIUM LEVEL 1.7 MG/DL (1.8-2.4); SODIUM LEVEL 141 MEQ/L (136-145)
[2018-08-09] MEDS: HumaLOG INSULIN (NovoLOG) PER UNIT SC ×4 (08:00→21:00)
[2018-08-09] MEDS: MAG SULF 1GM/100ML (MAG RUN) 1 GM in APPROPRIATE DILUENT 1 EA IV (08:00)
[2018-08-09] MEDS: SENOKOT S TAB PO ×2 (08:01→21:35)
[2018-08-09] MEDS: ATORVASTATIN 20 MG TAB PO (08:01)
[2018-08-09] MEDS: CALCIUM/VITAMIN D 500 MG TAB PO ×2 (08:01→21:35)
[2018-08-09] MEDS: SERTRALINE HCL 25 MG TABLET PO (08:01)
[2018-08-09] MEDS: DORZOLAMIDE 2% OPHTH SOLN 10 ML BTL OU ×2 (08:01→21:35)
[2018-08-09] MEDS: amLODIPine 5 MG TAB PO (08:04)
[2018-08-09 11:15] LABS: BEDSIDE GLUCOSE 152 MG/DL (83-110)
[2018-08-09] MEDS ORDERED: E-Z-GAS II EFFERVESCENT PACKET (SODIUM BICARB./CITRIC ACID/SIMETHICONE) As Ordered (12:01)
[2018-08-09] MEDS ORDERED: E-Z-HD 98% w/w 340GM SUSP BTL As Ordered (12:01)
[2018-08-09] MEDS ORDERED: E-Z-PAQUE 96% w/w SUSP 176GM BTL As Ordered (12:01)
[2018-08-09 17:08] LABS: BEDSIDE GLUCOSE 189 MG/DL (83-110)
[2018-08-09 21:33] LABS: BEDSIDE GLUCOSE 147 MG/DL (83-110)
[2018-08-09] MEDS: LATANOPROST 0.005% OPHTH SOLN 2.5 ML OU (21:35)
[2018-08-10] MEDS: HEPARIN SOD (PORCINE) 5000 UNITS/ML VIAL SC ×3 (05:08→20:39)
[2018-08-10] MEDS: PERCOCET 5MG/325MG TAB PO ×3 (05:11→20:38)
[2018-08-10 06:37] LABS: HEMATOCRIT 32.4 % (42.0-52.0); HEMOGLOBIN 10.5 g/dl (13.5-17.5); MEAN CORPUSCULAR HEMOGLOBIN 30.5 pg (27.0-33.0); MEAN CORPUSCULAR HGB CONC 32.4 g/dl (32.0-36.5); MEAN CORPUSCULAR VOLUME 94.2 fl (80.0-96.0); PLATELET COUNT, AUTOMATED 207 10^3/uL (150-450); RED BLOOD COUNT 3.44 10^6/uL (4.30-6.10); RED CELL DISTRIBUTION WIDTH 17.6 % (11.5-14.5); WHITE BLOOD COUNT 8.2 10^3/uL (4.0-10.0)
[2018-08-10 07:07] LABS: ANION GAP 9 MEQ/L (8-16); BLOOD UREA NITROGEN 13 MG/DL (7-18); CALCIUM LEVEL 8.3 MG/DL (8.8-10.2); CARBON DIOXIDE LEVEL 26 MEQ/L (21-32); CHLORIDE LEVEL 107 MEQ/L (98-107); CREATININE FOR GFR 1.21 MG/DL (0.70-1.30); GLOMERULAR FILTRATION RATE > 60.0 (>42); GLUCOSE, FASTING 163 MG/DL (70-100); MAGNESIUM LEVEL 1.8 MG/DL (1.8-2.4); POTASSIUM SERUM 3.9 MEQ/L (3.5-5.1); SODIUM LEVEL 142 MEQ/L (136-145)
[2018-08-10] MEDS: ATORVASTATIN 20 MG TAB PO (08:44)
[2018-08-10] MEDS: HumaLOG INSULIN (NovoLOG) PER UNIT SC ×4 (08:44→21:00)
[2018-08-10] MEDS: SENOKOT S TAB PO ×2 (08:45→20:38)
[2018-08-10] MEDS: DORZOLAMIDE 2% OPHTH SOLN 10 ML BTL OU ×2 (08:45→20:40)
[2018-08-10] MEDS: amLODIPine 10 MG TAB PO (08:45)
[2018-08-10] MEDS: SERTRALINE HCL 25 MG TABLET PO (08:45)
[2018-08-10] MEDS: CALCIUM/VITAMIN D 500 MG TAB PO ×2 (08:45→20:39)
[2018-08-10 11:56] LABS: BEDSIDE GLUCOSE 159 MG/DL (83-110)
[2018-08-10] MEDS: CLOTRIMAZOLE 1% TOPICAL CREAM 30GM TOP ×3 (12:34→20:39)
[2018-08-10 17:04] LABS: BEDSIDE GLUCOSE 166 MG/DL (83-110)
[2018-08-10] MEDS: LATANOPROST 0.005% OPHTH SOLN 2.5 ML OU (20:39)
[2018-08-10 20:51] LABS: BEDSIDE GLUCOSE 280 MG/DL (83-110)
[2018-08-11] MEDS: HEPARIN SOD (PORCINE) 5000 UNITS/ML VIAL SC ×3 (05:25→21:07)
[2018-08-11 06:55] LABS: HEMATOCRIT 32.7 % (42.0-52.0); HEMOGLOBIN 10.8 g/dl (13.5-17.5); MEAN CORPUSCULAR HEMOGLOBIN 31.4 pg (27.0-33.0); MEAN CORPUSCULAR VOLUME 95.1 fl (80.0-96.0); PLATELET COUNT, AUTOMATED 225 10^3/uL (150-450); RED BLOOD COUNT 3.44 10^6/uL (4.30-6.10); RED CELL DISTRIBUTION WIDTH 17.8 % (11.5-14.5); WHITE BLOOD COUNT 9.4 10^3/uL (4.0-10.0)
[2018-08-11 07:18] LABS: ANION GAP 6 MEQ/L (8-16); BLOOD UREA NITROGEN 14 MG/DL (7-18); CALCIUM LEVEL 8.3 MG/DL (8.8-10.2); CARBON DIOXIDE LEVEL 28 MEQ/L (21-32); CHLORIDE LEVEL 106 MEQ/L (98-107); CREATININE FOR GFR 1.13 MG/DL (0.70-1.30); GLOMERULAR FILTRATION RATE > 60.0 (>42); GLUCOSE, FASTING 152 MG/DL (70-100); MAGNESIUM LEVEL 1.6 MG/DL (1.8-2.4); POTASSIUM SERUM 4.1 MEQ/L (3.5-5.1); SODIUM LEVEL 140 MEQ/L (136-145)
[2018-08-11] MEDS: SENOKOT S TAB PO ×2 (08:56→21:07)
[2018-08-11] MEDS: CALCIUM/VITAMIN D 500 MG TAB PO ×2 (08:56→21:07)
[2018-08-11] MEDS: ATORVASTATIN 20 MG TAB PO (08:56)
[2018-08-11] MEDS: SERTRALINE HCL 25 MG TABLET PO (08:57)
[2018-08-11] MEDS: HumaLOG INSULIN (NovoLOG) PER UNIT SC ×4 (08:58→21:00)
[2018-08-11] MEDS: amLODIPine 10 MG TAB PO (08:59)
[2018-08-11] MEDS: DORZOLAMIDE 2% OPHTH SOLN 10 ML BTL OU ×2 (08:59→21:08)
[2018-08-11] MEDS: CLOTRIMAZOLE 1% TOPICAL CREAM 30GM TOP ×3 (09:00→21:08)
[2018-08-11 11:29] LABS: BEDSIDE GLUCOSE 212 MG/DL (83-110)
[2018-08-11] MEDS: PERCOCET 5MG/325MG TAB PO (13:34)
[2018-08-11] MEDS: MAG SULF 1GM/100ML (MAG RUN) 1 GM in APPROPRIATE DILUENT 1 EA IV (14:35)
[2018-08-11 16:32] LABS: BEDSIDE GLUCOSE 275 MG/DL (83-110)
[2018-08-11 20:19] LABS: BEDSIDE GLUCOSE 198 MG/DL (83-110)
[2018-08-11] MEDS: LATANOPROST 0.005% OPHTH SOLN 2.5 ML OU (21:08)
[2018-08-12 06:00] LABS: HEMATOCRIT 32.6 % (42.0-52.0); HEMOGLOBIN 10.8 g/dl (13.5-17.5); MEAN CORPUSCULAR HEMOGLOBIN 30.8 pg (27.0-33.0); MEAN CORPUSCULAR HGB CONC 33.1 g/dl (32.0-36.5); MEAN CORPUSCULAR VOLUME 92.9 fl (80.0-96.0); PLATELET COUNT, AUTOMATED 257 10^3/uL (150-450); RED BLOOD COUNT 3.51 10^6/uL (4.30-6.10); RED CELL DISTRIBUTION WIDTH 17.3 % (11.5-14.5); WHITE BLOOD COUNT 10.8 10^3/uL (4.0-10.0)
[2018-08-12 06:19] LABS: BLOOD UREA NITROGEN 13 MG/DL (7-18); CREATININE FOR GFR 1.07 MG/DL (0.70-1.30); GLUCOSE, FASTING 174 MG/DL (70-100)
[2018-08-12 06:20] LABS: ANION GAP 7 MEQ/L (8-16); CALCIUM LEVEL 8.5 MG/DL (8.8-10.2); CARBON DIOXIDE LEVEL 28 MEQ/L (21-32); CHLORIDE LEVEL 104 MEQ/L (98-107); GLOMERULAR FILTRATION RATE > 60.0 (>42); MAGNESIUM LEVEL 1.6 MG/DL (1.8-2.4); POTASSIUM SERUM 4.2 MEQ/L (3.5-5.1); SODIUM LEVEL 139 MEQ/L (136-145)
[2018-08-12] MEDS: HEPARIN SOD (PORCINE) 5000 UNITS/ML VIAL SC ×3 (06:47→22:38)
[2018-08-12] MEDS: HumaLOG INSULIN (NovoLOG) PER UNIT SC ×4 (07:30→21:00)
[2018-08-12] MEDS: MAGNESIUM OXIDE 400 MG TAB (MAG-OX) PO ×2 (11:03→22:38)
[2018-08-12] MEDS: ATORVASTATIN 20 MG TAB PO (11:03)
[2018-08-12] MEDS: MAG SULF 1GM/100ML (MAG RUN) 1 GM in APPROPRIATE DILUENT 1 EA IV (11:03)
[2018-08-12] MEDS: CLOTRIMAZOLE 1% TOPICAL CREAM 30GM TOP ×3 (11:04→22:39)
[2018-08-12] MEDS: DORZOLAMIDE 2% OPHTH SOLN 10 ML BTL OU ×2 (11:04→22:39)
[2018-08-12] MEDS: CALCIUM/VITAMIN D 500 MG TAB PO ×2 (11:04→22:39)
[2018-08-12] MEDS: SENOKOT S TAB PO ×2 (11:04→22:39)
[2018-08-12] MEDS: SERTRALINE HCL 25 MG TABLET PO (11:04)
[2018-08-12] MEDS: amLODIPine 10 MG TAB PO (11:10)
[2018-08-12 11:35] LABS: BEDSIDE GLUCOSE 248 MG/DL (83-110)
[2018-08-12] MEDS: MIRALAX *UNIT DOSE* 17GM PACKET PO (12:36)
[2018-08-12] MEDS: PERCOCET 5MG/325MG TAB PO ×2 (14:47→22:57)
[2018-08-12 17:17] LABS: BEDSIDE GLUCOSE 133 MG/DL (83-110)
[2018-08-12 20:00] LABS: BEDSIDE GLUCOSE 155 MG/DL (83-110)
[2018-08-12] MEDS: LATANOPROST 0.005% OPHTH SOLN 2.5 ML OU (22:40)
[2018-08-13] MEDS: HEPARIN SOD (PORCINE) 5000 UNITS/ML VIAL SC ×3 (05:11→22:23)
[2018-08-13 05:58] LABS: HEMATOCRIT 31.8 % (42.0-52.0); HEMOGLOBIN 10.5 g/dl (13.5-17.5); MEAN CORPUSCULAR VOLUME 93.8 fl (80.0-96.0); PLATELET COUNT, AUTOMATED 268 10^3/uL (150-450); RED BLOOD COUNT 3.39 10^6/uL (4.30-6.10); RED CELL DISTRIBUTION WIDTH 17.2 % (11.5-14.5); WHITE BLOOD COUNT 9.3 10^3/uL (4.0-10.0)
[2018-08-13] MEDS: PERCOCET 5MG/325MG TAB PO ×3 (06:10→20:10)
[2018-08-13 06:20] LABS: ANION GAP 6 MEQ/L (8-16); BLOOD UREA NITROGEN 16 MG/DL (7-18); CALCIUM LEVEL 8.4 MG/DL (8.8-10.2); CARBON DIOXIDE LEVEL 29 MEQ/L (21-32); CHLORIDE LEVEL 104 MEQ/L (98-107); CREATININE FOR GFR 1.12 MG/DL (0.70-1.30); GLOMERULAR FILTRATION RATE > 60.0 (>42); GLUCOSE, FASTING 123 MG/DL (70-100); MAGNESIUM LEVEL 2.2 MG/DL (1.8-2.4); POTASSIUM SERUM 4.1 MEQ/L (3.5-5.1); SODIUM LEVEL 139 MEQ/L (136-145)
[2018-08-13] MEDS: CALCIUM/VITAMIN D 500 MG TAB PO ×2 (09:05→20:09)
[2018-08-13] MEDS: amLODIPine 10 MG TAB PO (09:05)
[2018-08-13] MEDS: ATORVASTATIN 20 MG TAB PO (09:05)
[2018-08-13] MEDS: MAGNESIUM OXIDE 400 MG TAB (MAG-OX) PO ×2 (09:05→20:09)
[2018-08-13] MEDS: SERTRALINE HCL 25 MG TABLET PO (09:05)
[2018-08-13] MEDS: MIRALAX *UNIT DOSE* 17GM PACKET PO ×2 (09:05→20:10)
[2018-08-13] MEDS: SENOKOT S TAB PO ×2 (09:05→20:09)
[2018-08-13] MEDS: HumaLOG INSULIN (NovoLOG) PER UNIT SC ×4 (09:06→20:10)
[2018-08-13] MEDS: DORZOLAMIDE 2% OPHTH SOLN 10 ML BTL OU ×2 (09:06→20:10)
[2018-08-13] MEDS: CLOTRIMAZOLE 1% TOPICAL CREAM 30GM TOP ×3 (09:06→20:11)
[2018-08-13 11:23] LABS: BEDSIDE GLUCOSE 180 MG/DL (83-110)
[2018-08-13] MEDS: FLEET ENEMA PR (13:58)
[2018-08-13] MEDS: MAGNESIUM CITRATE 300 ML BTL PO (16:35)
[2018-08-13 17:49] LABS: BEDSIDE GLUCOSE 129 MG/DL (83-110)
[2018-08-13 19:55] LABS: BEDSIDE GLUCOSE 252 MG/DL (83-110)
[2018-08-13] MEDS: LATANOPROST 0.005% OPHTH SOLN 2.5 ML OU (20:10)
[2018-08-14] MEDS: PERCOCET 5MG/325MG TAB PO ×2 (01:27→21:01)
[2018-08-14] MEDS: HEPARIN SOD (PORCINE) 5000 UNITS/ML VIAL SC ×3 (05:11→21:02)
[2018-08-14 07:27] LABS: BEDSIDE GLUCOSE 113 MG/DL (83-110)
[2018-08-14] MEDS: HumaLOG INSULIN (NovoLOG) PER UNIT SC ×4 (07:30→20:07)
[2018-08-14 08:28] LABS: HEMATOCRIT 35.6 % (42.0-52.0); HEMOGLOBIN 11.6 g/dl (13.5-17.5); MEAN CORPUSCULAR HEMOGLOBIN 30.7 pg (27.0-33.0); MEAN CORPUSCULAR HGB CONC 32.6 g/dl (32.0-36.5); MEAN CORPUSCULAR VOLUME 94.2 fl (80.0-96.0); PLATELET COUNT, AUTOMATED 319 10^3/uL (150-450); RED BLOOD COUNT 3.78 10^6/uL (4.30-6.10); RED CELL DISTRIBUTION WIDTH 17.1 % (11.5-14.5); WHITE BLOOD COUNT 12.5 10^3/uL (4.0-10.0)
[2018-08-14 08:59] LABS: ANION GAP 4 MEQ/L (8-16); BLOOD UREA NITROGEN 19 MG/DL (7-18); CALCIUM LEVEL 8.7 MG/DL (8.8-10.2); CARBON DIOXIDE LEVEL 30 MEQ/L (21-32); CHLORIDE LEVEL 101 MEQ/L (98-107); CREATININE FOR GFR 1.19 MG/DL (0.70-1.30); GLOMERULAR FILTRATION RATE > 60.0 (>42); GLUCOSE, FASTING 149 MG/DL (70-100); MAGNESIUM LEVEL 2.2 MG/DL (1.8-2.4); POTASSIUM SERUM 4.8 MEQ/L (3.5-5.1); SODIUM LEVEL 135 MEQ/L (136-145)
[2018-08-14] MEDS: MIRALAX *UNIT DOSE* 17GM PACKET PO (09:27)
[2018-08-14] MEDS: ATORVASTATIN 20 MG TAB PO (09:27)
[2018-08-14] MEDS: MAGNESIUM OXIDE 400 MG TAB (MAG-OX) PO ×2 (09:27→21:00)
[2018-08-14] MEDS: DORZOLAMIDE 2% OPHTH SOLN 10 ML BTL OU ×2 (09:27→21:01)
[2018-08-14] MEDS: SERTRALINE HCL 25 MG TABLET PO (09:27)
[2018-08-14] MEDS: amLODIPine 10 MG TAB PO (09:27)
[2018-08-14] MEDS: SENOKOT S TAB PO ×2 (09:27→21:00)
[2018-08-14] MEDS: CALCIUM/VITAMIN D 500 MG TAB PO ×2 (09:27→21:00)
[2018-08-14] MEDS: CLOTRIMAZOLE 1% TOPICAL CREAM 30GM TOP ×3 (09:28→21:02)
[2018-08-14 12:09] LABS: BEDSIDE GLUCOSE 256 MG/DL (83-110)
[2018-08-14 17:07] LABS: BEDSIDE GLUCOSE 195 MG/DL (83-110)
[2018-08-14 20:02] LABS: BEDSIDE GLUCOSE 179 MG/DL (83-110)
[2018-08-14] MEDS: LATANOPROST 0.005% OPHTH SOLN 2.5 ML OU (21:01)
[2018-08-15] MEDS: HEPARIN SOD (PORCINE) 5000 UNITS/ML VIAL SC ×3 (05:15→21:05)
[2018-08-15 06:20] LABS: HEMATOCRIT 37.4 % (42.0-52.0); MEAN CORPUSCULAR HEMOGLOBIN 30.5 pg (27.0-33.0); MEAN CORPUSCULAR HGB CONC 32.1 g/dl (32.0-36.5); MEAN CORPUSCULAR VOLUME 94.9 fl (80.0-96.0); PLATELET COUNT, AUTOMATED 338 10^3/uL (150-450); RED BLOOD COUNT 3.94 10^6/uL (4.30-6.10); WHITE BLOOD COUNT 13.2 10^3/uL (4.0-10.0)
[2018-08-15 06:39] LABS: ANION GAP 8 MEQ/L (8-16); BLOOD UREA NITROGEN 19 MG/DL (7-18); CALCIUM LEVEL 8.8 MG/DL (8.8-10.2); CARBON DIOXIDE LEVEL 25 MEQ/L (21-32); CHLORIDE LEVEL 102 MEQ/L (98-107); CREATININE FOR GFR 1.21 MG/DL (0.70-1.30); GLOMERULAR FILTRATION RATE > 60.0 (>42); GLUCOSE, FASTING 175 MG/DL (70-100); MAGNESIUM LEVEL 2.2 MG/DL (1.8-2.4); POTASSIUM SERUM 5.4 MEQ/L (3.5-5.1); SODIUM LEVEL 135 MEQ/L (136-145)
[2018-08-15] MEDS: MIRALAX *UNIT DOSE* 17GM PACKET PO (09:00)
[2018-08-15] MEDS: SENOKOT S TAB PO ×3 (09:00→21:04)
[2018-08-15] MEDS: SERTRALINE HCL 25 MG TABLET PO (09:06)
[2018-08-15] MEDS: CALCIUM/VITAMIN D 500 MG TAB PO ×3 (09:06→21:04)
[2018-08-15] MEDS: amLODIPine 10 MG TAB PO (09:09)
[2018-08-15] MEDS: ATORVASTATIN 20 MG TAB PO (09:09)
[2018-08-15] MEDS: NS 500 ML IV (09:10)
[2018-08-15] MEDS: HumaLOG INSULIN (NovoLOG) PER UNIT SC ×4 (09:10→21:00)
[2018-08-15] MEDS: DORZOLAMIDE 2% OPHTH SOLN 10 ML BTL OU ×2 (09:12→21:05)
[2018-08-15] MEDS: CLOTRIMAZOLE 1% TOPICAL CREAM 30GM TOP ×3 (09:12→21:04)
[2018-08-15 11:40] LABS: BEDSIDE GLUCOSE 242 MG/DL (83-110)
[2018-08-15 16:50] LABS: BEDSIDE GLUCOSE 141 MG/DL (83-110)
[2018-08-15 20:38] LABS: BEDSIDE GLUCOSE 164 MG/DL (83-110)
[2018-08-15] MEDS: LATANOPROST 0.005% OPHTH SOLN 2.5 ML OU (21:05)
[2018-08-16] MEDS: HEPARIN SOD (PORCINE) 5000 UNITS/ML VIAL SC ×3 (05:10→21:15)
[2018-08-16 06:33] LABS: HEMATOCRIT 34.1 % (42.0-52.0); HEMOGLOBIN 11.1 g/dl (13.5-17.5); MEAN CORPUSCULAR HEMOGLOBIN 30.9 pg (27.0-33.0); MEAN CORPUSCULAR HGB CONC 32.6 g/dl (32.0-36.5); PLATELET COUNT, AUTOMATED 358 10^3/uL (150-450); RED BLOOD COUNT 3.59 10^6/uL (4.30-6.10); RED CELL DISTRIBUTION WIDTH 17.2 % (11.5-14.5); WHITE BLOOD COUNT 10.7 10^3/uL (4.0-10.0)
[2018-08-16 06:40] LABS: ANION GAP 7 MEQ/L (8-16); BLOOD UREA NITROGEN 22 MG/DL (7-18); CARBON DIOXIDE LEVEL 27 MEQ/L (21-32); CHLORIDE LEVEL 103 MEQ/L (98-107); CREATININE FOR GFR 1.28 MG/DL (0.70-1.30); GLOMERULAR FILTRATION RATE 58.2 (>42); GLUCOSE, FASTING 198 MG/DL (70-100); MAGNESIUM LEVEL 2.3 MG/DL (1.8-2.4); POTASSIUM SERUM 4.6 MEQ/L (3.5-5.1); SODIUM LEVEL 137 MEQ/L (136-145)
[2018-08-16] MEDS: MIRALAX *UNIT DOSE* 17GM PACKET PO (08:47)
[2018-08-16] MEDS: HumaLOG INSULIN (NovoLOG) PER UNIT SC ×4 (08:47→21:00)
[2018-08-16] MEDS: SERTRALINE HCL 25 MG TABLET PO (08:48)
[2018-08-16] MEDS: CALCIUM/VITAMIN D 500 MG TAB PO ×2 (08:48→21:15)
[2018-08-16] MEDS: amLODIPine 10 MG TAB PO (08:49)
[2018-08-16] MEDS: ATORVASTATIN 20 MG TAB PO (08:49)
[2018-08-16] MEDS: CLOTRIMAZOLE 1% TOPICAL CREAM 30GM TOP ×3 (08:50→21:16)
[2018-08-16] MEDS: DORZOLAMIDE 2% OPHTH SOLN 10 ML BTL OU ×2 (08:50→21:15)
[2018-08-16] MEDS: SENOKOT S TAB PO ×2 (08:52→21:15)
[2018-08-16 11:39] LABS: BEDSIDE GLUCOSE 146 MG/DL (83-110)
[2018-08-16 16:48] LABS: BEDSIDE GLUCOSE 137 MG/DL (83-110)
[2018-08-16] MEDS: LATANOPROST 0.005% OPHTH SOLN 2.5 ML OU (21:15)
[2018-08-16 21:40] LABS: BEDSIDE GLUCOSE 167 MG/DL (83-110)
[2018-08-17] MEDS: HEPARIN SOD (PORCINE) 5000 UNITS/ML VIAL SC ×3 (05:11→21:25)
[2018-08-17 06:35] LABS: HEMATOCRIT 35.8 % (42.0-52.0); HEMOGLOBIN 11.4 g/dl (13.5-17.5); MEAN CORPUSCULAR HEMOGLOBIN 30.6 pg (27.0-33.0); MEAN CORPUSCULAR HGB CONC 31.8 g/dl (32.0-36.5); PLATELET COUNT, AUTOMATED 374 10^3/uL (150-450); RED BLOOD COUNT 3.73 10^6/uL (4.30-6.10); RED CELL DISTRIBUTION WIDTH 16.8 % (11.5-14.5); WHITE BLOOD COUNT 10.3 10^3/uL (4.0-10.0)
[2018-08-17 06:55] LABS: ANION GAP 9 MEQ/L (8-16); BLOOD UREA NITROGEN 21 MG/DL (7-18); CALCIUM LEVEL 8.4 MG/DL (8.8-10.2); CARBON DIOXIDE LEVEL 25 MEQ/L (21-32); CHLORIDE LEVEL 101 MEQ/L (98-107); GLOMERULAR FILTRATION RATE > 60.0 (>42); GLUCOSE, FASTING 148 MG/DL (70-100); MAGNESIUM LEVEL 2.2 MG/DL (1.8-2.4); POTASSIUM SERUM 4.4 MEQ/L (3.5-5.1); SODIUM LEVEL 135 MEQ/L (136-145)
[2018-08-17] MEDS: HumaLOG INSULIN (NovoLOG) PER UNIT SC ×4 (07:30→20:41)
[2018-08-17] MEDS: ATORVASTATIN 20 MG TAB PO (08:16)
[2018-08-17] MEDS: CALCIUM/VITAMIN D 500 MG TAB PO ×2 (08:16→21:25)
[2018-08-17] MEDS: SENOKOT S TAB PO ×2 (08:16→21:25)
[2018-08-17] MEDS: amLODIPine 10 MG TAB PO (08:18)
[2018-08-17] MEDS: SERTRALINE HCL 25 MG TABLET PO (08:18)
[2018-08-17] MEDS: DORZOLAMIDE 2% OPHTH SOLN 10 ML BTL OU ×2 (08:19→21:25)
[2018-08-17] MEDS: MIRALAX *UNIT DOSE* 17GM PACKET PO (08:19)
[2018-08-17] MEDS: CLOTRIMAZOLE 1% TOPICAL CREAM 30GM TOP ×3 (08:19→21:25)
[2018-08-17 11:38] LABS: BEDSIDE GLUCOSE 208 MG/DL (83-110)
[2018-08-17 16:52] LABS: BEDSIDE GLUCOSE 197 MG/DL (83-110)
[2018-08-17] MEDS: LATANOPROST 0.005% OPHTH SOLN 2.5 ML OU (21:25)
[2018-08-17] MEDS: PERCOCET 5MG/325MG TAB PO (21:28)
[2018-08-18 00:59] LABS: BEDSIDE GLUCOSE 152 MG/DL (83-110)
[2018-08-18] MEDS: HEPARIN SOD (PORCINE) 5000 UNITS/ML VIAL SC ×3 (05:14→21:14)
[2018-08-18 05:25] LABS: BEDSIDE GLUCOSE 158 MG/DL (83-110)
[2018-08-18] MEDS: CALCIUM/VITAMIN D 500 MG TAB PO ×2 (08:37→21:13)
[2018-08-18] MEDS: HumaLOG INSULIN (NovoLOG) PER UNIT SC ×4 (08:37→20:47)
[2018-08-18] MEDS: SERTRALINE HCL 25 MG TABLET PO (08:37)
[2018-08-18] MEDS: amLODIPine 10 MG TAB PO (08:37)
[2018-08-18] MEDS: ATORVASTATIN 20 MG TAB PO (08:37)
[2018-08-18] MEDS: DORZOLAMIDE 2% OPHTH SOLN 10 ML BTL OU ×2 (08:38→21:13)
[2018-08-18] MEDS: SENOKOT S TAB PO ×2 (08:38→21:13)
[2018-08-18] MEDS: MIRALAX *UNIT DOSE* 17GM PACKET PO (08:38)
[2018-08-18] MEDS: CLOTRIMAZOLE 1% TOPICAL CREAM 30GM TOP ×3 (08:38→21:13)
[2018-08-18 11:37] LABS: BEDSIDE GLUCOSE 174 MG/DL (83-110)
[2018-08-18 16:52] LABS: BEDSIDE GLUCOSE 157 MG/DL (83-110)
[2018-08-18 20:10] LABS: BEDSIDE GLUCOSE 137 MG/DL (83-110)
[2018-08-18] MEDS: PERCOCET 5MG/325MG TAB PO (21:13)
[2018-08-18] MEDS: LATANOPROST 0.005% OPHTH SOLN 2.5 ML OU (21:13)
[2018-08-19] MEDS: HEPARIN SOD (PORCINE) 5000 UNITS/ML VIAL SC ×2 (05:22→18:16)
[2018-08-19 06:42] LABS: HEMATOCRIT 37.4 % (42.0-52.0); HEMOGLOBIN 11.9 g/dl (13.5-17.5); MEAN CORPUSCULAR HEMOGLOBIN 30.7 pg (27.0-33.0); MEAN CORPUSCULAR HGB CONC 31.8 g/dl (32.0-36.5); MEAN CORPUSCULAR VOLUME 96.4 fl (80.0-96.0); PLATELET COUNT, AUTOMATED 381 10^3/uL (150-450); RED BLOOD COUNT 3.88 10^6/uL (4.30-6.10); RED CELL DISTRIBUTION WIDTH 16.5 % (11.5-14.5); WHITE BLOOD COUNT 9.9 10^3/uL (4.0-10.0)
[2018-08-19 06:55] LABS: ANION GAP 7 MEQ/L (8-16); BLOOD UREA NITROGEN 24 MG/DL (7-18); CALCIUM LEVEL 8.6 MG/DL (8.8-10.2); CARBON DIOXIDE LEVEL 26 MEQ/L (21-32); CHLORIDE LEVEL 101 MEQ/L (98-107); CREATININE FOR GFR 1.39 MG/DL (0.70-1.30); GLOMERULAR FILTRATION RATE 52.9 (>42); GLUCOSE, FASTING 174 MG/DL (70-100); MAGNESIUM LEVEL 2.3 MG/DL (1.8-2.4); POTASSIUM SERUM 4.3 MEQ/L (3.5-5.1); SODIUM LEVEL 134 MEQ/L (136-145)
[2018-08-19] MEDS: SENOKOT S TAB PO ×2 (09:00→21:00)
[2018-08-19] MEDS: MIRALAX *UNIT DOSE* 17GM PACKET PO (09:00)
[2018-08-19] MEDS: HumaLOG INSULIN (NovoLOG) PER UNIT SC ×4 (09:26→20:55)
[2018-08-19] MEDS: ATORVASTATIN 20 MG TAB PO (09:26)
[2018-08-19] MEDS: amLODIPine 10 MG TAB PO (09:26)
[2018-08-19] MEDS: CALCIUM/VITAMIN D 500 MG TAB PO ×2 (09:26→20:54)
[2018-08-19] MEDS: SERTRALINE HCL 25 MG TABLET PO (09:26)
[2018-08-19] MEDS: DORZOLAMIDE 2% OPHTH SOLN 10 ML BTL OU ×2 (09:27→20:55)
[2018-08-19] MEDS: CLOTRIMAZOLE 1% TOPICAL CREAM 30GM TOP ×3 (09:27→20:55)
[2018-08-19 11:53] LABS: BEDSIDE GLUCOSE 266 MG/DL (83-110)
[2018-08-19 16:49] LABS: BEDSIDE GLUCOSE 208 MG/DL (83-110)
[2018-08-19] MEDS: LATANOPROST 0.005% OPHTH SOLN 2.5 ML OU (20:55)
[2018-08-19 20:56] LABS: BEDSIDE GLUCOSE 277 MG/DL (83-110)
[2018-08-20] MEDS: HEPARIN SOD (PORCINE) 5000 UNITS/ML VIAL SC ×2 (05:31→17:27)
[2018-08-20 06:49] LABS: ANION GAP 8 MEQ/L (8-16); BLOOD UREA NITROGEN 26 MG/DL (7-18); CALCIUM LEVEL 8.7 MG/DL (8.8-10.2); CARBON DIOXIDE LEVEL 26 MEQ/L (21-32); CHLORIDE LEVEL 104 MEQ/L (98-107); CREATININE FOR GFR 1.41 MG/DL (0.70-1.30); GLUCOSE, FASTING 201 MG/DL (70-100); POTASSIUM SERUM 4.6 MEQ/L (3.5-5.1); SODIUM LEVEL 138 MEQ/L (136-145)
[2018-08-20] MEDS: NS 1,000 ML IV (07:57)
[2018-08-20] MEDS: HumaLOG INSULIN (NovoLOG) PER UNIT SC ×4 (07:58→20:46)
[2018-08-20] MEDS: CALCIUM/VITAMIN D 500 MG TAB PO ×2 (08:00→20:45)
[2018-08-20] MEDS: SENOKOT S TAB PO ×2 (08:00→20:46)
[2018-08-20] MEDS: ATORVASTATIN 20 MG TAB PO (08:00)
[2018-08-20] MEDS: MIRALAX *UNIT DOSE* 17GM PACKET PO (08:00)
[2018-08-20] MEDS: SERTRALINE HCL 25 MG TABLET PO (08:00)
[2018-08-20] MEDS: amLODIPine 10 MG TAB PO (08:00)
[2018-08-20] MEDS: DORZOLAMIDE 2% OPHTH SOLN 10 ML BTL OU ×2 (08:01→20:45)
[2018-08-20] MEDS: CLOTRIMAZOLE 1% TOPICAL CREAM 30GM TOP ×3 (08:01→20:45)
[2018-08-20] MEDS: PERCOCET 5MG/325MG TAB PO (08:01)
[2018-08-20 11:49] LABS: BEDSIDE GLUCOSE 243 MG/DL (83-110)
[2018-08-20 11:58] LABS: APPEARANCE, URINE CLOUDY (CLEAR); BACTERIA, URINE AUTO 3+ (NEGATIVE); BILIRUBIN, URINE AUTO NEGATIVE (NEGATIVE); BLOOD, URINE BLOOD 1+ (NEGATIVE); COLOR, URINE AMBER (YELLOW); GLUCOSE, URINE (UA) AUTO NEGATIVE (NEGATIVE); KETONE, URINE AUTO NEGATIVE (NEGATIVE); LEUKOCYTE ESTERASE, URINE AUTO 3+ (NEGATIVE); MUCUS, URINE SMALL (NEGATIVE); NITRITE, URINE AUTO POSITIVE (NEGATIVE); PROTEIN, URINE AUTO 1+ mg/dL (NEGATIVE); RBC, URINE AUTO 15 /HPF (0-3); SPECIFIC GRAVITY URINE AUTO 1.017 (1.002-1.035); SQUAMOUS EPITHELIAL CELL UR AU 0 /HPF (0-6); UROBILINOGEN, URINE AUTO 0.2 mg/dL (0.0-2.0); WBC, URINE AUTO 134 /HPF (0-3); YEAST LIKE CELL URINE AUTO SMALL
[2018-08-20 12:37] LABS: CHLORIDE,RANDOM URINE 79 MEQ/L; POTASSIUM RANDOM URINE 60.2 MEQ/L; SODIUM,RANDOM URINE 66 MEQ/L; TOTAL PROTEIN,RANDOM URINE 68.7 MG/DL (0.0-12.0)
[2018-08-20 12:40] LABS: OSMOLALITY URINE 495 MOSM/KG (500-800)
[2018-08-20] MEDS: cefTRIAXone SOD 1 GM in D5W MINI-BAG PLUS 50 ML IV (16:26)
[2018-08-20 17:06] LABS: BEDSIDE GLUCOSE 255 MG/DL (83-110)
[2018-08-20 20:32] LABS: BEDSIDE GLUCOSE 180 MG/DL (83-110)
[2018-08-20] MEDS: LATANOPROST 0.005% OPHTH SOLN 2.5 ML OU (20:45)
[2018-08-21] MEDS: HEPARIN SOD (PORCINE) 5000 UNITS/ML VIAL SC ×2 (05:18→17:39)
[2018-08-21 06:21] LABS: HEMATOCRIT 33.3 % (42.0-52.0); HEMOGLOBIN 10.9 g/dl (13.5-17.5); MEAN CORPUSCULAR HGB CONC 32.7 g/dl (32.0-36.5); MEAN CORPUSCULAR VOLUME 94.6 fl (80.0-96.0); PLATELET COUNT, AUTOMATED 390 10^3/uL (150-450); RED BLOOD COUNT 3.52 10^6/uL (4.30-6.10); RED CELL DISTRIBUTION WIDTH 16.2 % (11.5-14.5); WHITE BLOOD COUNT 10.1 10^3/uL (4.0-10.0)
[2018-08-21 06:39] LABS: ANION GAP 7 MEQ/L (8-16); BLOOD UREA NITROGEN 26 MG/DL (7-18); CALCIUM LEVEL 8.5 MG/DL (8.8-10.2); CARBON DIOXIDE LEVEL 25 MEQ/L (21-32); CHLORIDE LEVEL 104 MEQ/L (98-107); CREATININE FOR GFR 1.37 MG/DL (0.70-1.30); GLOMERULAR FILTRATION RATE 53.8 (>42); GLUCOSE, FASTING 195 MG/DL (70-100); MAGNESIUM LEVEL 2.1 MG/DL (1.8-2.4); POTASSIUM SERUM 4.9 MEQ/L (3.5-5.1); SODIUM LEVEL 136 MEQ/L (136-145)
[2018-08-21] MEDS: HumaLOG INSULIN (NovoLOG) PER UNIT SC ×4 (08:16→21:00)
[2018-08-21] MEDS: amLODIPine 10 MG TAB PO (08:16)
[2018-08-21] MEDS: DORZOLAMIDE 2% OPHTH SOLN 10 ML BTL OU ×2 (08:17→21:55)
[2018-08-21] MEDS: ATORVASTATIN 20 MG TAB PO (08:17)
[2018-08-21] MEDS: CALCIUM/VITAMIN D 500 MG TAB PO ×2 (08:17→21:55)
[2018-08-21] MEDS: SERTRALINE HCL 25 MG TABLET PO (08:17)
[2018-08-21] MEDS: NS 1,000 ML IV (08:17)
[2018-08-21] MEDS: CLOTRIMAZOLE 1% TOPICAL CREAM 30GM TOP ×3 (08:17→21:56)
[2018-08-21] MEDS: MIRALAX *UNIT DOSE* 17GM PACKET PO (08:18)
[2018-08-21] MEDS: SENOKOT S TAB PO ×3 (08:18→21:55)
[2018-08-21 11:49] LABS: BEDSIDE GLUCOSE 232 MG/DL (83-110)
[2018-08-21 16:45] LABS: BEDSIDE GLUCOSE 270 MG/DL (83-110)
[2018-08-21] MEDS: cefTRIAXone SOD 1 GM in D5W MINI-BAG PLUS 50 ML IV (17:38)
[2018-08-21 20:37] LABS: BEDSIDE GLUCOSE 160 MG/DL (83-110)
[2018-08-21] MEDS: LATANOPROST 0.005% OPHTH SOLN 2.5 ML OU (21:55)
[2018-08-22] MEDS: HEPARIN SOD (PORCINE) 5000 UNITS/ML VIAL SC ×2 (05:33→18:15)
[2018-08-22 06:30] LABS: HEMATOCRIT 35.6 % (42.0-52.0); HEMOGLOBIN 11.4 g/dl (13.5-17.5); MEAN CORPUSCULAR HEMOGLOBIN 30.6 pg (27.0-33.0); MEAN CORPUSCULAR VOLUME 95.7 fl (80.0-96.0); PLATELET COUNT, AUTOMATED 393 10^3/uL (150-450); RED BLOOD COUNT 3.72 10^6/uL (4.30-6.10); RED CELL DISTRIBUTION WIDTH 15.9 % (11.5-14.5); WHITE BLOOD COUNT 9.2 10^3/uL (4.0-10.0)
[2018-08-22 06:49] LABS: ANION GAP 6 MEQ/L (8-16); BLOOD UREA NITROGEN 19 MG/DL (7-18); CALCIUM LEVEL 8.8 MG/DL (8.8-10.2); CARBON DIOXIDE LEVEL 25 MEQ/L (21-32); CHLORIDE LEVEL 104 MEQ/L (98-107); CREATININE FOR GFR 1.23 MG/DL (0.70-1.30); GLOMERULAR FILTRATION RATE > 60.0 (>42); GLUCOSE, FASTING 197 MG/DL (70-100); MAGNESIUM LEVEL 1.9 MG/DL (1.8-2.4); POTASSIUM SERUM 4.6 MEQ/L (3.5-5.1); SODIUM LEVEL 135 MEQ/L (136-145)
[2018-08-22] MEDS: MIRALAX *UNIT DOSE* 17GM PACKET PO (08:35)
[2018-08-22] MEDS: ATORVASTATIN 20 MG TAB PO (08:35)
[2018-08-22] MEDS: SERTRALINE HCL 25 MG TABLET PO (08:35)
[2018-08-22] MEDS: CALCIUM/VITAMIN D 500 MG TAB PO ×2 (08:35→21:22)
[2018-08-22] MEDS: amLODIPine 10 MG TAB PO (08:35)
[2018-08-22] MEDS: SENOKOT S TAB PO ×2 (08:35→21:22)
[2018-08-22] MEDS: DORZOLAMIDE 2% OPHTH SOLN 10 ML BTL OU ×2 (08:36→21:22)
[2018-08-22] MEDS: HumaLOG INSULIN (NovoLOG) PER UNIT SC ×4 (08:36→21:00)
[2018-08-22] MEDS: CLOTRIMAZOLE 1% TOPICAL CREAM 30GM TOP ×3 (08:36→21:22)
[2018-08-22] MEDS: DOXYCYCLINE HYCLATE 100 MG TAB PO ×2 (09:28→21:22)
[2018-08-22 12:01] LABS: BEDSIDE GLUCOSE 167 MG/DL (83-110)
[2018-08-22 17:35] LABS: BEDSIDE GLUCOSE 144 MG/DL (83-110)
[2018-08-22 20:29] LABS: BEDSIDE GLUCOSE 164 MG/DL (83-110)
[2018-08-22] MEDS: LATANOPROST 0.005% OPHTH SOLN 2.5 ML OU (21:22)
[2018-08-23] MEDS: HEPARIN SOD (PORCINE) 5000 UNITS/ML VIAL SC ×2 (05:32→18:08)
[2018-08-23 06:59] LABS: HEMATOCRIT 37.7 % (42.0-52.0); HEMOGLOBIN 12.4 g/dl (13.5-17.5); MEAN CORPUSCULAR HEMOGLOBIN 30.8 pg (27.0-33.0); MEAN CORPUSCULAR HGB CONC 32.9 g/dl (32.0-36.5); MEAN CORPUSCULAR VOLUME 93.8 fl (80.0-96.0); PLATELET COUNT, AUTOMATED 429 10^3/uL (150-450); RED BLOOD COUNT 4.02 10^6/uL (4.30-6.10); RED CELL DISTRIBUTION WIDTH 15.7 % (11.5-14.5); WHITE BLOOD COUNT 8.4 10^3/uL (4.0-10.0)
[2018-08-23 07:25] LABS: ANION GAP 9 MEQ/L (8-16); BLOOD UREA NITROGEN 19 MG/DL (7-18); CALCIUM LEVEL 8.7 MG/DL (8.8-10.2); CARBON DIOXIDE LEVEL 24 MEQ/L (21-32); CHLORIDE LEVEL 105 MEQ/L (98-107); CREATININE FOR GFR 1.23 MG/DL (0.70-1.30); GLOMERULAR FILTRATION RATE > 60.0 (>42); GLUCOSE, FASTING 179 MG/DL (70-100); MAGNESIUM LEVEL 1.8 MG/DL (1.8-2.4); POTASSIUM SERUM 4.6 MEQ/L (3.5-5.1); SODIUM LEVEL 138 MEQ/L (136-145)
[2018-08-23] MEDS: SENOKOT S TAB PO ×2 (08:54→20:34)
[2018-08-23] MEDS: MIRALAX *UNIT DOSE* 17GM PACKET PO (08:55)
[2018-08-23] MEDS: SERTRALINE HCL 25 MG TABLET PO (09:56)
[2018-08-23] MEDS: CALCIUM/VITAMIN D 500 MG TAB PO ×2 (09:56→20:34)
[2018-08-23] MEDS: HumaLOG INSULIN (NovoLOG) PER UNIT SC ×4 (09:56→20:38)
[2018-08-23] MEDS: DOXYCYCLINE HYCLATE 100 MG TAB PO ×2 (09:56→20:34)
[2018-08-23] MEDS: ATORVASTATIN 20 MG TAB PO (09:56)
[2018-08-23] MEDS: amLODIPine 10 MG TAB PO (10:02)
[2018-08-23] MEDS: CLOTRIMAZOLE 1% TOPICAL CREAM 30GM TOP ×3 (10:03→20:37)
[2018-08-23] MEDS: DORZOLAMIDE 2% OPHTH SOLN 10 ML BTL OU ×2 (10:03→20:38)
[2018-08-23 12:17] LABS: BEDSIDE GLUCOSE 159 MG/DL (83-110)
[2018-08-23 16:43] LABS: BEDSIDE GLUCOSE 127 MG/DL (83-110)
[2018-08-23 20:15] LABS: BEDSIDE GLUCOSE 167 MG/DL (83-110)
[2018-08-23] MEDS: LATANOPROST 0.005% OPHTH SOLN 2.5 ML OU (20:36)
[2018-08-24] MEDS: HEPARIN SOD (PORCINE) 5000 UNITS/ML VIAL SC ×2 (05:45→18:17)
[2018-08-24 06:56] LABS: HEMATOCRIT 38.6 % (42.0-52.0); HEMOGLOBIN 12.6 g/dl (13.5-17.5); MEAN CORPUSCULAR HEMOGLOBIN 30.5 pg (27.0-33.0); MEAN CORPUSCULAR HGB CONC 32.6 g/dl (32.0-36.5); MEAN CORPUSCULAR VOLUME 93.5 fl (80.0-96.0); PLATELET COUNT, AUTOMATED 415 10^3/uL (150-450); RED BLOOD COUNT 4.13 10^6/uL (4.30-6.10); RED CELL DISTRIBUTION WIDTH 15.6 % (11.5-14.5); WHITE BLOOD COUNT 8.7 10^3/uL (4.0-10.0)
[2018-08-24 07:08] LABS: ANION GAP 9 MEQ/L (8-16); BLOOD UREA NITROGEN 21 MG/DL (7-18); CALCIUM LEVEL 8.8 MG/DL (8.8-10.2); CARBON DIOXIDE LEVEL 24 MEQ/L (21-32); CHLORIDE LEVEL 103 MEQ/L (98-107); CREATININE FOR GFR 1.31 MG/DL (0.70-1.30); GLOMERULAR FILTRATION RATE 56.6 (>42); GLUCOSE, FASTING 206 MG/DL (70-100); MAGNESIUM LEVEL 1.9 MG/DL (1.8-2.4); POTASSIUM SERUM 4.4 MEQ/L (3.5-5.1); SODIUM LEVEL 136 MEQ/L (136-145)
[2018-08-24] MEDS: HumaLOG INSULIN (NovoLOG) PER UNIT SC ×4 (09:59→21:00)
[2018-08-24] MEDS: SERTRALINE HCL 25 MG TABLET PO (09:59)
[2018-08-24] MEDS: ATORVASTATIN 20 MG TAB PO (09:59)
[2018-08-24] MEDS: amLODIPine 10 MG TAB PO (10:04)
[2018-08-24] MEDS: DOXYCYCLINE HYCLATE 100 MG TAB PO ×2 (10:04→21:40)
[2018-08-24] MEDS: CALCIUM/VITAMIN D 500 MG TAB PO ×2 (10:04→21:41)
[2018-08-24] MEDS: CLOTRIMAZOLE 1% TOPICAL CREAM 30GM TOP ×3 (10:05→21:41)
[2018-08-24] MEDS: SENOKOT S TAB PO ×2 (10:05→21:41)
[2018-08-24] MEDS: DORZOLAMIDE 2% OPHTH SOLN 10 ML BTL OU ×2 (10:05→21:43)
[2018-08-24 12:25] LABS: BEDSIDE GLUCOSE 214 MG/DL (83-110)
[2018-08-24] MEDS: LIDOCAINE 5% (LIDODERM) PATCH TD (13:14)
[2018-08-24] MEDS: DOCUSATE SODIUM 100 MG CAP PO ×3 (14:15→21:40)
[2018-08-24 17:20] LABS: BEDSIDE GLUCOSE 235 MG/DL (83-110)
[2018-08-24] MEDS: BISACODYL 10 MG SUPP PR (18:17)
[2018-08-24] MEDS: **NOTE PATIENT COMMENT** MISC XX (21:00)
[2018-08-24] MEDS ORDERED: **NOTE PATIENT COMMENT** MISC XX (21:00)
[2018-08-24] MEDS: LATANOPROST 0.005% OPHTH SOLN 2.5 ML OU (21:41)
[2018-08-24 21:58] LABS: BEDSIDE GLUCOSE 131 MG/DL (83-110)
[2018-08-25] MEDS: HEPARIN SOD (PORCINE) 5000 UNITS/ML VIAL SC ×2 (05:28→17:33)
[2018-08-25 06:18] LABS: HEMATOCRIT 37.5 % (42.0-52.0); HEMOGLOBIN 12.3 g/dl (13.5-17.5); MEAN CORPUSCULAR HEMOGLOBIN 30.5 pg (27.0-33.0); MEAN CORPUSCULAR HGB CONC 32.8 g/dl (32.0-36.5); MEAN CORPUSCULAR VOLUME 93.1 fl (80.0-96.0); PLATELET COUNT, AUTOMATED 426 10^3/uL (150-450); RED BLOOD COUNT 4.03 10^6/uL (4.30-6.10); RED CELL DISTRIBUTION WIDTH 15.4 % (11.5-14.5)
[2018-08-25 06:32] LABS: ANION GAP 8 MEQ/L (8-16); BLOOD UREA NITROGEN 26 MG/DL (7-18); CALCIUM LEVEL 8.6 MG/DL (8.8-10.2); CARBON DIOXIDE LEVEL 26 MEQ/L (21-32); CHLORIDE LEVEL 104 MEQ/L (98-107); CREATININE FOR GFR 1.33 MG/DL (0.70-1.30); GLOMERULAR FILTRATION RATE 55.7 (>42); GLUCOSE, FASTING 171 MG/DL (70-100); MAGNESIUM LEVEL 1.8 MG/DL (1.8-2.4); POTASSIUM SERUM 4.3 MEQ/L (3.5-5.1); SODIUM LEVEL 138 MEQ/L (136-145)
[2018-08-25] MEDS: CALCIUM/VITAMIN D 500 MG TAB PO ×2 (09:06→22:20)
[2018-08-25] MEDS: SENOKOT S TAB PO ×2 (09:06→22:20)
[2018-08-25] MEDS: DOCUSATE SODIUM 100 MG CAP PO ×2 (09:07→22:20)
[2018-08-25] MEDS: DORZOLAMIDE 2% OPHTH SOLN 10 ML BTL OU ×2 (09:07→22:21)
[2018-08-25] MEDS: amLODIPine 10 MG TAB PO (09:07)
[2018-08-25] MEDS: SERTRALINE HCL 25 MG TABLET PO (09:07)
[2018-08-25] MEDS: CLOTRIMAZOLE 1% TOPICAL CREAM 30GM TOP ×3 (09:07→22:21)
[2018-08-25] MEDS: ATORVASTATIN 20 MG TAB PO (09:07)
[2018-08-25] MEDS: HumaLOG INSULIN (NovoLOG) PER UNIT SC ×4 (09:08→22:35)
[2018-08-25] MEDS: LIDOCAINE 5% (LIDODERM) PATCH TD (09:08)
[2018-08-25] MEDS: DOXYCYCLINE HYCLATE 100 MG TAB PO ×2 (09:08→22:20)
[2018-08-25 11:57] LABS: BEDSIDE GLUCOSE 280 MG/DL (83-110)
[2018-08-25 17:14] LABS: BEDSIDE GLUCOSE 170 MG/DL (83-110)
[2018-08-25 20:23] LABS: BEDSIDE GLUCOSE 222 MG/DL (83-110)
[2018-08-25] MEDS: LATANOPROST 0.005% OPHTH SOLN 2.5 ML OU (22:21)
[2018-08-25] MEDS: **NOTE PATIENT COMMENT** MISC XX (22:22)
[2018-08-26] MEDS: HEPARIN SOD (PORCINE) 5000 UNITS/ML VIAL SC ×2 (05:42→17:54)
[2018-08-26 06:00] LABS: HEMATOCRIT 37.4 % (42.0-52.0); HEMOGLOBIN 12.3 g/dl (13.5-17.5); MEAN CORPUSCULAR HEMOGLOBIN 30.8 pg (27.0-33.0); MEAN CORPUSCULAR HGB CONC 32.9 g/dl (32.0-36.5); MEAN CORPUSCULAR VOLUME 93.5 fl (80.0-96.0); PLATELET COUNT, AUTOMATED 396 10^3/uL (150-450); RED CELL DISTRIBUTION WIDTH 15.4 % (11.5-14.5)
[2018-08-26 06:19] LABS: ANION GAP 5 MEQ/L (8-16); BLOOD UREA NITROGEN 32 MG/DL (7-18); CALCIUM LEVEL 9.3 MG/DL (8.8-10.2); CARBON DIOXIDE LEVEL 28 MEQ/L (21-32); CHLORIDE LEVEL 103 MEQ/L (98-107); CREATININE FOR GFR 1.41 MG/DL (0.70-1.30); GLUCOSE, FASTING 195 MG/DL (70-100); MAGNESIUM LEVEL 2.1 MG/DL (1.8-2.4); POTASSIUM SERUM 4.5 MEQ/L (3.5-5.1); SODIUM LEVEL 136 MEQ/L (136-145)
[2018-08-26] MEDS: HumaLOG INSULIN (NovoLOG) PER UNIT SC ×4 (08:15→20:59)
[2018-08-26] MEDS: SENOKOT S TAB PO ×2 (08:17→20:59)
[2018-08-26] MEDS: CALCIUM/VITAMIN D 500 MG TAB PO ×2 (08:17→20:59)
[2018-08-26] MEDS: DOCUSATE SODIUM 100 MG CAP PO ×2 (08:17→20:59)
[2018-08-26] MEDS: ATORVASTATIN 20 MG TAB PO (08:17)
[2018-08-26] MEDS: amLODIPine 10 MG TAB PO (08:17)
[2018-08-26] MEDS: SERTRALINE HCL 25 MG TABLET PO (08:17)
[2018-08-26] MEDS: DOXYCYCLINE HYCLATE 100 MG TAB PO ×2 (08:17→20:59)
[2018-08-26] MEDS: CLOTRIMAZOLE 1% TOPICAL CREAM 30GM TOP ×3 (08:18→21:00)
[2018-08-26] MEDS: LIDOCAINE 5% (LIDODERM) PATCH TD (08:18)
[2018-08-26] MEDS: DORZOLAMIDE 2% OPHTH SOLN 10 ML BTL OU ×2 (08:19→21:00)
[2018-08-26] MEDS: D5W/0.9% SODIUM CHLORIDE 1,000 ML IV ×2 (09:06→20:59)
[2018-08-26 11:26] LABS: BEDSIDE GLUCOSE 205 MG/DL (83-110)
[2018-08-26 15:33] LABS: APPEARANCE, URINE HAZY (CLEAR); BACTERIA, URINE AUTO NEGATIVE (NEGATIVE); BILIRUBIN, URINE AUTO NEGATIVE (NEGATIVE); BLOOD, URINE BLOOD 1+ (NEGATIVE); COLOR, URINE YELLOW (YELLOW); GLUCOSE, URINE (UA) AUTO NEGATIVE (NEGATIVE); KETONE, URINE AUTO NEGATIVE (NEGATIVE); LEUKOCYTE ESTERASE, URINE AUTO 1+ (NEGATIVE); NITRITE, URINE AUTO NEGATIVE (NEGATIVE); PROTEIN, URINE AUTO NEGATIVE (NEGATIVE); RBC, URINE AUTO 11 /HPF (0-3); SPECIFIC GRAVITY URINE AUTO 1.013 (1.002-1.035); SQUAMOUS EPITHELIAL CELL UR AU 0 /HPF (0-6); UROBILINOGEN, URINE AUTO 0.2 mg/dL (0.0-2.0); WBC, URINE AUTO 12 /HPF (0-3); YEAST LIKE CELL URINE AUTO SMALL
[2018-08-26 16:28] LABS: BEDSIDE GLUCOSE 276 MG/DL (83-110)
[2018-08-26] MEDS: LATANOPROST 0.005% OPHTH SOLN 2.5 ML OU (21:00)
[2018-08-26] MEDS: **NOTE PATIENT COMMENT** MISC XX (21:00)
[2018-08-26 22:09] LABS: BEDSIDE GLUCOSE 98 MG/DL (83-110)
[2018-08-27] MEDS: HEPARIN SOD (PORCINE) 5000 UNITS/ML VIAL SC ×2 (05:55→18:40)
[2018-08-27 06:15] LABS: HEMATOCRIT 35.2 % (42.0-52.0); HEMOGLOBIN 11.4 g/dl (13.5-17.5); MEAN CORPUSCULAR HEMOGLOBIN 30.4 pg (27.0-33.0); MEAN CORPUSCULAR HGB CONC 32.4 g/dl (32.0-36.5); MEAN CORPUSCULAR VOLUME 93.9 fl (80.0-96.0); PLATELET COUNT, AUTOMATED 328 10^3/uL (150-450); RED BLOOD COUNT 3.75 10^6/uL (4.30-6.10); RED CELL DISTRIBUTION WIDTH 15.3 % (11.5-14.5); WHITE BLOOD COUNT 9.2 10^3/uL (4.0-10.0)
[2018-08-27 06:30] LABS: ANION GAP 6 MEQ/L (8-16); BLOOD UREA NITROGEN 23 MG/DL (7-18); CALCIUM LEVEL 8.2 MG/DL (8.8-10.2); CARBON DIOXIDE LEVEL 25 MEQ/L (21-32); CHLORIDE LEVEL 108 MEQ/L (98-107); GLOMERULAR FILTRATION RATE > 60.0 (>42); GLUCOSE, FASTING 233 MG/DL (70-100); MAGNESIUM LEVEL 1.8 MG/DL (1.8-2.4); POTASSIUM SERUM 4.1 MEQ/L (3.5-5.1); SODIUM LEVEL 139 MEQ/L (136-145)
[2018-08-27] MEDS: ATORVASTATIN 20 MG TAB PO (08:32)
[2018-08-27] MEDS: SENOKOT S TAB PO ×2 (08:32→20:12)
[2018-08-27] MEDS: SERTRALINE HCL 25 MG TABLET PO (08:32)
[2018-08-27] MEDS: HumaLOG INSULIN (NovoLOG) PER UNIT SC ×4 (08:32→20:09)
[2018-08-27] MEDS: LIDOCAINE 5% (LIDODERM) PATCH TD (08:32)
[2018-08-27] MEDS: CALCIUM/VITAMIN D 500 MG TAB PO ×2 (08:32→20:12)
[2018-08-27] MEDS: DOCUSATE SODIUM 100 MG CAP PO ×2 (08:32→20:12)
[2018-08-27] MEDS: MIRALAX *UNIT DOSE* 17GM PACKET PO (08:33)
[2018-08-27] MEDS: CLOTRIMAZOLE 1% TOPICAL CREAM 30GM TOP ×3 (08:39→20:13)
[2018-08-27] MEDS: DORZOLAMIDE 2% OPHTH SOLN 10 ML BTL OU ×2 (08:39→20:12)
[2018-08-27] MEDS: amLODIPine 10 MG TAB PO (08:40)
[2018-08-27 11:32] LABS: BEDSIDE GLUCOSE 134 MG/DL (83-110)
[2018-08-27 14:40] LABS: ALBUMIN 2.4 GM/DL (3.2-5.2)
[2018-08-27 14:40] LABS: PREALBUMIN 12.8 MG/DL (20.0-40.0)
[2018-08-27 17:06] LABS: BEDSIDE GLUCOSE 257 MG/DL (83-110)
[2018-08-27 19:57] LABS: BEDSIDE GLUCOSE 175 MG/DL (83-110)
[2018-08-27] MEDS: LATANOPROST 0.005% OPHTH SOLN 2.5 ML OU (20:12)
[2018-08-27] MEDS: **NOTE PATIENT COMMENT** MISC XX (20:13)
[2018-08-28] MEDS: HEPARIN SOD (PORCINE) 5000 UNITS/ML VIAL SC (05:20)
[2018-08-28 06:26] LABS: BEDSIDE GLUCOSE 152 MG/DL (83-110)
[2018-08-28] MEDS: HumaLOG INSULIN (NovoLOG) PER UNIT SC ×2 (08:00→13:10)
[2018-08-28] MEDS: DOCUSATE SODIUM 100 MG CAP PO (09:00)
[2018-08-28] MEDS: DORZOLAMIDE 2% OPHTH SOLN 10 ML BTL OU ×2 (09:00→21:34)
[2018-08-28] MEDS: SENOKOT S TAB PO ×2 (09:00→21:33)
[2018-08-28] MEDS: CLOTRIMAZOLE 1% TOPICAL CREAM 30GM TOP ×3 (09:00→21:34)
[2018-08-28] MEDS: CALCIUM/VITAMIN D 500 MG TAB PO ×2 (09:30→21:33)
[2018-08-28] MEDS: ATORVASTATIN 20 MG TAB PO (09:30)
[2018-08-28] MEDS: SERTRALINE HCL 25 MG TABLET PO (09:30)
[2018-08-28] MEDS: amLODIPine 10 MG TAB PO (09:30)
[2018-08-28] MEDS: ACETAMINOPHEN TAB 650MG DOSE (2X325MG) PO ×2 (09:30→21:34)
[2018-08-28] MEDS: LIDOCAINE 5% (LIDODERM) PATCH TD (09:30)
[2018-08-28 11:21] LABS: BEDSIDE GLUCOSE 218 MG/DL (83-110)
[2018-08-28] MEDS ORDERED: MORPHINE 10MG/0.5ML ORAL CONCENTRATE SOLUTION U/D SL (14:15)
[2018-08-28] MEDS ORDERED: ONDANSETRON 4 MG ORAL DISINTEGRATING TAB (Q0162 PER 1MG) PO (14:15)
[2018-08-28 17:19] LABS: BEDSIDE GLUCOSE 145 MG/DL (83-110)
[2018-08-28] MEDS: **NOTE PATIENT COMMENT** MISC XX (21:00)
[2018-08-28] MEDS: LATANOPROST 0.005% OPHTH SOLN 2.5 ML OU (21:33)
[2018-08-29] MEDS: CALCIUM/VITAMIN D 500 MG TAB PO ×2 (08:10→21:19)
[2018-08-29] MEDS: SENOKOT S TAB PO ×2 (08:11→21:19)
[2018-08-29] MEDS: SERTRALINE HCL 25 MG TABLET PO (08:11)
[2018-08-29] MEDS: DORZOLAMIDE 2% OPHTH SOLN 10 ML BTL OU ×2 (08:37→21:18)
[2018-08-29] MEDS: CLOTRIMAZOLE 1% TOPICAL CREAM 30GM TOP ×3 (08:37→21:19)
[2018-08-29] MEDS: LIDOCAINE 5% (LIDODERM) PATCH TD (10:00)
[2018-08-29] MEDS: **NOTE PATIENT COMMENT** MISC XX (21:00)
[2018-08-29] MEDS: LATANOPROST 0.005% OPHTH SOLN 2.5 ML OU (21:18)
[2018-08-30] MEDS: LORazepam 1 MG TAB PO
[2018-08-30] MEDS: DORZOLAMIDE 2% OPHTH SOLN 10 ML BTL OU ×2 (07:57→20:02)
[2018-08-30] MEDS: LIDOCAINE 5% (LIDODERM) PATCH TD (07:57)
[2018-08-30] MEDS: SERTRALINE HCL 25 MG TABLET PO (07:57)
[2018-08-30] MEDS: SENOKOT S TAB PO ×2 (07:57→20:01)
[2018-08-30] MEDS: CLOTRIMAZOLE 1% TOPICAL CREAM 30GM TOP ×3 (07:57→20:02)
[2018-08-30] MEDS: CALCIUM/VITAMIN D 500 MG TAB PO ×2 (07:57→20:02)
[2018-08-30] MEDS: LATANOPROST 0.005% OPHTH SOLN 2.5 ML OU (20:02)
[2018-08-30] MEDS: **NOTE PATIENT COMMENT** MISC XX (20:02)
[2018-08-31] MEDS: LIDOCAINE 5% (LIDODERM) PATCH TD (11:42)
[2018-08-31] MEDS: CLOTRIMAZOLE 1% TOPICAL CREAM 30GM TOP ×3 (11:43→20:29)
[2018-08-31] MEDS: DORZOLAMIDE 2% OPHTH SOLN 10 ML BTL OU ×2 (11:51→20:29)
[2018-08-31] MEDS: SERTRALINE HCL 25 MG TABLET PO (11:51)
[2018-08-31] MEDS: SENOKOT S TAB PO ×2 (11:51→20:29)
[2018-08-31] MEDS: CALCIUM/VITAMIN D 500 MG TAB PO ×2 (11:51→20:29)
[2018-08-31] MEDS: LATANOPROST 0.005% OPHTH SOLN 2.5 ML OU (20:29)
[2018-08-31] MEDS: **NOTE PATIENT COMMENT** MISC XX (20:29)
[2018-09-01] MEDS: SERTRALINE HCL 25 MG TABLET PO (09:00)
[2018-09-01] MEDS: CALCIUM/VITAMIN D 500 MG TAB PO ×2 (09:00→20:06)
[2018-09-01] MEDS: CLOTRIMAZOLE 1% TOPICAL CREAM 30GM TOP ×3 (09:00→20:08)
[2018-09-01] MEDS: SENOKOT S TAB PO ×2 (09:00→20:06)
[2018-09-01] MEDS: DORZOLAMIDE 2% OPHTH SOLN 10 ML BTL OU ×2 (09:00→20:08)
[2018-09-01] MEDS: LIDOCAINE 5% (LIDODERM) PATCH TD (09:00)
[2018-09-01] MEDS: LATANOPROST 0.005% OPHTH SOLN 2.5 ML OU (20:08)
[2018-09-01] MEDS: **NOTE PATIENT COMMENT** MISC XX (20:08)
[2018-09-02] MEDS: SERTRALINE HCL 25 MG TABLET PO (09:00)
[2018-09-02] MEDS: SENOKOT S TAB PO ×2 (09:00→21:29)
[2018-09-02] MEDS: CALCIUM/VITAMIN D 500 MG TAB PO ×2 (09:00→21:29)
[2018-09-02] MEDS: DORZOLAMIDE 2% OPHTH SOLN 10 ML BTL OU ×2 (10:25→21:29)
[2018-09-02] MEDS: LIDOCAINE 5% (LIDODERM) PATCH TD (10:25)
[2018-09-02] MEDS: CLOTRIMAZOLE 1% TOPICAL CREAM 30GM TOP ×3 (10:26→21:29)
[2018-09-02] MEDS: **NOTE PATIENT COMMENT** MISC XX (21:00)
[2018-09-02] MEDS: LATANOPROST 0.005% OPHTH SOLN 2.5 ML OU (21:29)
[2018-09-03] MEDS: LIDOCAINE 5% (LIDODERM) PATCH TD (09:00)
[2018-09-03] MEDS: DORZOLAMIDE 2% OPHTH SOLN 10 ML BTL OU (09:00)
[2018-09-03] MEDS: SENOKOT S TAB PO (09:00)
[2018-09-03] MEDS: SERTRALINE HCL 25 MG TABLET PO (09:00)
[2018-09-03] MEDS: CALCIUM/VITAMIN D 500 MG TAB PO (09:00)
[2018-09-03] MEDS: CLOTRIMAZOLE 1% TOPICAL CREAM 30GM TOP (09:00)
== END 2018-09-03 14:03 | disposition home health service (06) | DRG 563 ==
LOC: M ED 10:45 → M ED INP 14:35 → M MSPAV 15:23
DX: S42.291A Other displaced fracture of upper end of right humerus, initial encounter for closed fracture (principal); N39.0 Urinary tract infection, site not specified; N17.9 Acute kidney failure, unspecified; S22.088A Other fracture of T11-T12 vertebra, initial encounter for closed fracture; F03.91 Unspecified dementia, unspecified severity, with behavioral disturbance; F70 Mild intellectual disabilities; Z51.5 Encounter for palliative care; E11.9 Type 2 diabetes mellitus without complications; I95.1 Orthostatic hypotension; E78.5 Hyperlipidemia, unspecified; Z86.73 Personal history of transient ischemic attack (TIA), and cerebral infarction without residual deficits; N40.0 Benign prostatic hyperplasia without lower urinary tract symptoms; F32.9 Major depressive disorder, single episode, unspecified; L40.8 Other psoriasis; I10 Essential (primary) hypertension; I25.10 Atherosclerotic heart disease of native coronary artery without angina pectoris; W18.30XA Fall on same level, unspecified, initial encounter; Y92.009 Unspecified place in unspecified non-institutional (private) residence as the place of occurrence of the external cause; Z79.899 Other long term (current) drug therapy; E55.9 Vitamin D deficiency, unspecified; M19.90 Unspecified osteoarthritis, unspecified site; L40.50 Arthropathic psoriasis, unspecified; I16.0 Hypertensive urgency; R29.6 Repeated falls; D64.9 Anemia, unspecified; R33.9 Retention of urine, unspecified

== ENCOUNTER → 2018-09-11 | Outpatient (REF) | payer MEDICARE ==
[~2018-09-11] MED LIST changes: +/AMLO25TA PO; +/TAMS4CA PO; +ACET1TAB55 PO; +ALPH0.1S OU; +BRIM0.2S13 OU; +CEPH500C; +CEPH500C PO; +DORZ2OPD OU; +FOLI1TAB86 PO; -GASTROGRAFIN SOLUTION 30ML (Q9963) As Ordered; +GLIM2TAB PO; +GLIM4TAB PO; -ISOVUE-370 76% 100ML VIAL (Q9967) As Ordered; +KEFL500C17 PO; +LEVO500T PO; +LORA0.5T11 PO; +METF1000 PO; +METF500T13 PO; +MOBI4TAB PO; +MORP20SO3 PO; +NORC1TAB4 PO; +NORCOTAB PO; +SENN1TAB2 PO; +SERT25TA PO; +SERT25TA88; +SIMV40TA2 PO; +TAMS1CAP17 PO; +TYLE325T5 PO; +VITA100T20 PO; +VITA100T60 PO; +VITMTA PO; +XALA0.007 OU; +ZEST20TA8 PO; +ZOCO40TA PO; +vitamin d PO
[2018-09-11 19:48] LABS: BASO # 0.1 10^3/uL (0.0-0.2); EOS # 0.3 10^3/uL (0.0-0.50); HEMATOCRIT 44.7 % (42.0-52.0); HEMOGLOBIN 14.6 g/dl (13.5-17.5); LYMPH # 2.2 10^3/uL (1.5-4.5); LYMPH % 22.9 % (24.0-44.0); MEAN CORPUSCULAR HGB CONC 32.7 g/dl (32.0-36.5); MONO # 0.6 10^3/uL (0.0-0.8); MONO % 5.9 % (0.0-5.0); NEUTROPHILS # 6.3 10^3/uL (1.8-7.7); NEUTROPHILS % 66.9 % (36.0-66.0); PLATELET COUNT, AUTOMATED 314 10^3/uL (150-450); RED BLOOD COUNT 4.86 10^6/uL (4.30-6.10); WHITE BLOOD COUNT 9.4 10^3/uL (4.0-10.0)
[2018-09-11 20:12] LABS: HEMOGLOBIN A1c 7.5 %
[2018-09-11 20:13] LABS: BILIRUBIN,TOTAL 0.6 MG/DL (0.2-1.0); CREATININE FOR GFR 1.44 MG/DL (0.70-1.30); GLOMERULAR FILTRATION RATE 50.8 (>42); TOTAL PROTEIN 6.4 GM/DL (6.4-8.2)
[2018-09-11 20:24] LABS: TOTAL 25(OH) VITAMIN D 37.8 NG/ML (30.0-100.0)
== END ==
LOC: M LAB REF 19:21
PROVIDERS: ATTEND Nurse Practitioner Family
DX: E11.9 Type 2 diabetes mellitus without complications (principal); E55.9 Vitamin D deficiency, unspecified